=== PATIENT | male | born 1945 | race Caucasian/White ===

== ENCOUNTER 2021-05-26 19:42 | Outpatient (CLI) | payer MEDICARE, OTHER | END 2021-05-26 19:43 | disposition critical access hospital (66) | LOC: EMS 19:42 | DX: R19.7 Diarrhea, unspecified (principal); R53.1 Weakness | CPT/HCPCS: A0425; A0429 ==

== ENCOUNTER 2021-05-26 20:00 | Inpatient (IN) | payer MEDICARE, OTHER ==
[2021-05-26 20:31] LABS: HGB - HEMOGLOBIN 11.9 g/dL (14.0-18.0); MEAN PLATELET VOLUME 10.8 fL (7.4-11.4); RED CELL DISTRIBUTION WIDTH 13.7 % (12.0-15.0)
[2021-05-26 20:36] LABS: BASOPHILS % (AUTO) 0.3 %; EOSINOPHILS % (AUTO) 0.1 %; LYMPHOCYTES # (AUTO) 0.8 10^3/uL (1.5-3.5); LYMPHOCYTES % (AUTO) 7.8 %; MEAN CORPUSCULAR HEMOGLOBIN 32.2 pg (27.0-31.0); MEAN CORPUSCULAR HGB CONC 32.2 g/dL (32.0-36.0); MEAN CORPUSCULAR VOLUME 100.3 fL (80.0-94.0); MONOCYTES # (AUTO) 0.8 10^3/uL (0.0-1.0); MONOCYTES % (AUTO) 7.5 %; NEUTROPHILS # (AUTO) 8.4 10^3/uL (1.5-6.6); NEUTROPHILS % (AUTO) 83.8 %; PLT - PLATELET COUNT 129 10^3/uL (130-450); RED BLOOD COUNT 3.69 10^6/uL (4.70-6.10)
[2021-05-26 20:47] LABS: ALBUMIN 3.1 g/dL (3.2-5.5); ALBUMIN/GLOBULIN RATIO 0.8 (1.0-2.2); CALCIUM 8.3 mg/dL (8.5-10.3); CREATININE 2.8 mg/dL (0.6-1.2); POTASSIUM 3.8 mmol/L (3.5-5.0); TOTAL PROTEIN 6.9 g/dL (6.7-8.2)
--- NOTE | 2021-05-26 20:57 | ED Physician Documentation ---
PD HPI NVD - Stated complaint Stated Complaint: WEAKNESS - Chief complaint Chief Complaint: Abd Pain - History obtained from History obtained from: Patient - History of Present Illness Timing - onset: How many days ago (4) Timing - duration: Days (4) Timing - details: Abrupt onset, Still present (he states the diarrhea and nausea were most consistent the first 2 1/2 days but decreased about 1 1/2 days ago. Still has some diarrhea every few hours. No noted blood in stool. Feeling of general weakness has increased though, and unable to get up from toilet once sat down this evening. called EMS.) Associated symptoms: Dizzy (lightheaded and general weakness.), Loss of appetite. No: Fever, Abdominal pain (intermittent mild cramping. No consistent pain.), Melena, Hematochezia, Dysuria Contributing factors: Bad food (he says onset of symptoms few hours after eating some leftover food, but it did not taste bad per se. No URI symptoms.). No: Sick contact Improved by: BM (minimal cramps go after stool movement. No consistent pain.) Worsened by: Eating (feeling of nausea worse with PO intake, though he was able to do some sips of gatorade and few crackers over the past 4 days, but that is all the intake. Did not take meds past 2 days due to nausea.) Similar symptoms before: Has not had sx before Recently seen: Not recently seen Review of Systems Constitutional: reports: Fatigue. denies: Fever, Chills, Myalgias Nose: denies: Rhinorrhea / runny nose, Congestion Throat: denies: Sore throat Cardiac: reports: Pedal edema (mild chronic). denies: Chest pain / pressure, Calf pain Respiratory: denies: Dyspnea, Cough GI: reports: Nausea, Diarrhea. denies: Abdominal Pain (none consistent), Abdominal Swelling, Vomiting, Constipation, Bloody / black stool : denies: Dysuria, Frequency Neurologic: reports: Generalized weakness (unable to stand up from sitting (on toilet) this evening, was barely able to walk around house the past 1-2 days.). denies: Focal weakness, Numbness, Near syncope, Altered mental status, Headache Endocrine: reports: Easy bruising / bleeding. denies: Polydypsia, Polyuria Immunocompromised: denies: Immunocompromised PD PAST MEDICAL HISTORY - Past Medical History Past Medical History: Yes Cardiovascular: Hypertension, High cholesterol, [place] Respiratory: Shortness of breath Neuro: None Endocrine/Autoimmune: None GI: GERD : Kidney stones HEENT: Chronic vision loss, Chronic sinusitis Psych: None Musculoskeletal: None Derm: None Other Past Medical History: USES A CANE W/ MOBILITY... - Past Surgical History Past Surgical History: Yes Ortho: Other Cardiovascular: Cardiac catheterization, Other HEENT: Cataracts, Tonsil/Adenoidectomy - Present Medications Home Medications: Ambulatory Orders Medication Instructions Recorded Confirmed Alfuzosin HCl [Alfuzosin HCl ER] 10 mg PO DAILY 04/15/15 05/26/21 Cholecalciferol (Vitamin D3) 2 cap PO DAILY 04/15/15 05/26/21 [Vitamin D3] Isosorbide Mononitrate [Isosorbide 60 mg PO DAILY 04/15/15 05/26/21 Mononitrate ER] Metoprolol Succinate [Toprol Xl] 50 mg PO BID 04/15/15 05/26/21 Omeprazole 2 tab PO DAILY 04/15/15 05/26/21 allopurinoL [Allopurinol] 100 mg PO BID 04/15/15 05/26/21 Atorvastatin Calcium 40 mg PO DAILY 05/26/21 05/26/21 - Allergies Allergies/Adverse Reactions: Allergies Allergy/AdvReac Type Severity Reaction Status Date / Time No Known Drug Allergies Allergy Verified 05/26/21 20:07 - Social History Does the pt smoke?: No Smoking Status: Never smoker Does the pt drink ETOH?: No Does the pt have substance abuse?: No - Immunizations Immunizations are current?: Yes - POLST Patient has POLST: No PD ED PE NORMAL - Vitals Vital signs reviewed: Yes (tachycardic 138. BP okay. ) - General General: Alert and oriented X 3, Well developed/nourished - HEENT HEENT: PERRL, Pharynx benign. No: Moist mucous membranes - Neck Neck: Supple, no meningeal sign, No adenopathy - Cardiac Cardiac: No: RRR (regular but tachycardic. ) - Respiratory Respiratory: No respiratory distress, Clear bilaterally - Abdomen Abdomen: Soft, Non tender, Non distended, Other (he is not tender in abd to percussion nor palpation. ). No: Normal bowel sounds (increased diffusely) - Male Male : Deferred - Rectal Rectal: Deferred - Back Back: No CVA TTP - Derm Derm: Warm and dry. No: Normal color (somewhat pale) - Extremities Extremities: No tenderness to palpate, Normal ROM s pain, No calf tenderness / cord, Other (1+ minimal edema in both legs. ) - Neuro Neuro: Alert and oriented X 3, No motor deficit, Normal speech Eye Opening: Spontaneous Motor: Obeys Commands Verbal: Oriented GCS Score: 15 Results - Vitals Vitals: Vital Signs - 24 hr 05/26/21 05/26/21 05/26/21 20:04 21:24 22:07 Temperature 36.4 C L Heart Rate 138 H 117 H Respiratory 20 16 19 Rate Blood Pressure 127/82 H 155/72 H O2 Saturation 100 97 05/26/21 05/26/21 05/26/21 22:38 22:45 22:59 Temperature Heart Rate 117 H 94 98 Respiratory 18 18 18 Rate Blood Pressure 158/78 H 138/75 H O2 Saturation 95 96 95 Oxygen O2 Source Room air - EKG (time done) 21:54 Rate: Rate (enter#) (116) Rhythm: Sinus tachycardia [place]: Normal Intervals: RBBB Ischemia: Non specific changes. No: ST elevation c/w ischemia - Labs Labs: Laboratory Tests 05/26/21 05/26/21 05/26/21 20:22 20:22 20:22 WBC 10.0 RBC 3.69 L Hgb 11.9 L Hct 37.0 L MCV 100.3 H MCH 32.2 H MCHC 32.2 RDW 13.7 Plt Count 129 L MPV 10.8 Neut # (Auto) 8.4 H Lymph # (Auto) 0.8 L Rogers # (Auto) 0.8 Eos # (Auto) 0.0 Baso # (Auto) 0.0 Absolute Nucleated RBC 0.00 Nucleated RBC % 0.0 Sodium 137 Potassium 3.8 Chloride 99 L Carbon Dioxide 27 Anion Gap 11.0 BUN 38 H Creatinine 2.8 H Estimated GFR (MDRD) 22 L Glucose 103 H Calcium 8.3 L Magnesium 1.6 L Total Bilirubin 3.0 H AST 50 H ALT 29 Alkaline Phosphatase 99 Troponin I High Sens B-Natriuretic Peptide Total Protein 6.9 Albumin 3.1 L Globulin 3.8 Albumin/Globulin Ratio 0.8 L Urine Color Urine Clarity Urine pH Ur Specific [place] Urine Protein Urine Glucose (UA) Urine Ketones Urine Occult Blood Urine Nitrite Urine Bilirubin Urine Urobilinogen Ur Leukocyte Esterase Urine RBC Urine WBC Ur Squamous Epith Cells Urine Bacteria Urine Casts Ur Microscopic Review Urine Culture Comments Nasal Adenovirus (PCR) Nasal B. parapertussis DNA (PCR) Nasal Coronavir 229E PCR Nasal Coronavir HKU1 PCR Nasal Coronavir NL63 PCR Nasal Coronavir OC43 PCR Nasal Enterovir/Rhinovir PCR Nasal Influenza B PCR Nasal Influenza A PCR Nasal Parainfluen 1 PCR Nasal Parainfluen 2 PCR Nasal Parainfluen 3 PCR Nasal Parainfluen 4 PCR Nasal RSV (PCR) Nasal B.pertussis DNA PCR Nasal C.pneumoniae (PCR) Adam Human Metapneumo PCR Nasal M.pneumoniae (PCR) Nasal SARS-CoV-2 (PCR) 05/26/21 05/26/21 05/26/21 20:22 20:22 21:20 WBC RBC Hgb Hct MCV MCH MCHC RDW Plt Count MPV Neut # (Auto) Lymph # (Auto) Rogers # (Auto) Eos # (Auto) Baso # (Auto) Absolute Nucleated RBC Nucleated RBC % Sodium Potassium Chloride Carbon Dioxide Anion Gap BUN Creatinine Estimated GFR (MDRD) Glucose Calcium Magnesium Total Bilirubin AST ALT Alkaline Phosphatase Troponin I High Sens 47.1 H* B-Natriuretic Peptide 190 H Total Protein Albumin Globulin Albumin/Globulin Ratio Urine Color Urine Clarity Urine pH Ur Specific [place] Urine Protein Urine Glucose (UA) Urine Ketones Urine Occult Blood Urine Nitrite Urine Bilirubin Urine Urobilinogen Ur Leukocyte Esterase Urine RBC Urine WBC Ur Squamous Epith Cells Urine Bacteria Urine Casts Ur Microscopic Review Urine Culture Comments Nasal Adenovirus (PCR) NOT DETECTED Nasal B. parapertussis DNA (PCR) NOT DETECTED Nasal Coronavir 229E PCR NOT DETECTED Nasal Coronavir HKU1 PCR NOT DETECTED Nasal Coronavir NL63 PCR NOT DETECTED Nasal Coronavir OC43 PCR NOT DETECTED Nasal Enterovir/Rhinovir PCR NOT DETECTED Nasal Influenza B PCR NOT DETECTED Nasal Influenza A PCR NOT DETECTED Nasal Parainfluen 1 PCR NOT DETECTED Nasal Parainfluen 2 PCR NOT DETECTED Nasal Parainfluen 3 PCR NOT DETECTED Nasal Parainfluen 4 PCR NOT DETECTED Nasal RSV (PCR) NOT DETECTED Nasal B.pertussis DNA PCR NOT DETECTED Nasal C.pneumoniae (PCR) NOT DETECTED Adam Human Metapneumo PCR NOT DETECTED Nasal M.pneumoniae (PCR) NOT DETECTED Nasal SARS-CoV-2 (PCR) NOT DETECTED 05/26/21 22:02 WBC RBC Hgb Hct MCV MCH MCHC RDW Plt Count MPV Neut # (Auto) Lymph # (Auto) Rogers # (Auto) Eos # (Auto) Baso # (Auto) Absolute Nucleated RBC Nucleated RBC % Sodium Potassium Chloride Carbon Dioxide Anion Gap BUN Creatinine Estimated GFR (MDRD) Glucose Calcium Magnesium Total Bilirubin AST ALT Alkaline Phosphatase Troponin I High Sens B-Natriuretic Peptide Total Protein Albumin Globulin Albumin/Globulin Ratio Urine Color DARK YELLOW Urine Clarity CLEAR Urine pH 5.5 Ur Specific [place] 1.025 Urine Protein 100 H Urine Glucose (UA) NEGATIVE Urine Ketones NEGATIVE Urine Occult Blood MODERATE H Urine Nitrite NEGATIVE Urine Bilirubin NEGATIVE Urine Urobilinogen 1 (NORMAL) Ur Leukocyte Esterase NEGATIVE Urine RBC 6-10 H Urine WBC 4-5 Ur Squamous Epith Cells FEW Squamous Urine Bacteria Few Urine Casts 11-25Course Granular Ur Microscopic Review INDICATED Urine Culture Comments NOT INDICATED Nasal Adenovirus (PCR) Nasal B. parapertussis DNA (PCR) Nasal Coronavir 229E PCR Nasal Coronavir HKU1 PCR Nasal Coronavir NL63 PCR Nasal Coronavir OC43 PCR Nasal Enterovir/Rhinovir PCR Nasal Influenza B PCR Nasal Influenza A PCR Nasal Parainfluen 1 PCR Nasal Parainfluen 2 PCR Nasal Parainfluen 3 PCR Nasal Parainfluen 4 PCR Nasal RSV (PCR) Nasal B.pertussis DNA PCR Nasal C.pneumoniae (PCR) Adam Human Metapneumo PCR Nasal M.pneumoniae (PCR) Nasal SARS-CoV-2 (PCR) - Rads (name of study) chest xray Radiology: Prelim report reviewed (no acute process), See rad report PD MEDICAL DECISION MAKING - ED course Complexity details: reviewed old records (no prior labs nor ECG available in our system. Trying to get records from [place]. ), reviewed results (elevated creatinine at 2.8 with baseline unknown. [facility] and still pending after couple of hours. ), re-evaluated patient (attempted ambulation in ER after fluids and meds showed still general weakness with unable to get himself up to standing. ), considered differential (viral GE versus food related. No abd pain consistently nor any tenderness here, so does not seem like ischemic, diverticular, appendix, obstructive.), d/w patient, d/w strategy execution consultant (My concern is the general weakness still and unable to really walk in ER. The elevated creatinine of 2.8 is unknown how acutely elevated at this point. History of [place]/CABG, so do not want to give large volume fluid. Feel that OBS may be appropirate. ) Departure - Departure Clinical Impression: Generalized weakness, Dehydration, Elevated creatine kinase Diarrhea Qualifiers: Diarrhea type: unspecified type Qualified Code(s): R19.7 - Diarrhea, unspecified Condition: Stable Record reviewed to determine appropriate education?: Yes
[2021-05-26] MEDS ORDERED: SODIUM CHLORIDE 0.9% 1,000 ML IV STA (21:12)
--- NOTE | 2021-05-26 21:40 | XRAY Report ---
PROCEDURE: Chest 1 View X-Ray INDICATIONS: chest pain TECHNIQUE: One view of the chest was acquired. COMPARISON: None FINDINGS: Surgical changes and devices: None. Lungs and pleura: No pleural effusions or pneumothorax. Lungs are clear. Mediastinum: Mediastinal contours appear normal. Heart size is normal. Bones and chest wall: No suspicious bony lesions. Overlying soft tissues appear unremarkable. IMPRESSION: No acute process. Reviewed by: Hector Eden MD on 05/26/2021 9:38 PM PDT Approved by: Hector Eden MD on 05/26/2021 9:38 PM PDT Station ID: [id number]
[2021-05-26 22:11] LABS: GLUCOSE, URINE (UA) NEGATIVE (NEGATIVE); KETONES,URINE (UA) NEGATIVE (NEGATIVE); LEUKOCYTE ESTERASE, URINE NEGATIVE (NEGATIVE); NITRITE,URINE NEGATIVE (NEGATIVE); OCCULT BLOOD,URINE MODERATE (NEGATIVE); PH,URINE 5.5 PH (5.0-7.5); PROTEIN,URINE 100 mg/dL (NEGATIVE); UROBILINOGEN,URINE 1 (NORMAL) E.U./dL (NORMAL)
[2021-05-26 22:15] LABS: BILIRUBIN,URINE NEGATIVE (NEGATIVE); CLARITY,URINE CLEAR (CLEAR); ICTOTEST,URINE NEGATIVE
[2021-05-26] MEDS ORDERED: MAGNESIUM SULFATE 2 GRAM 2 GM/50 ML BAG IV ONE (22:22)
[2021-05-26] MEDS ORDERED: METOPROLOL 5 MG/5 ML VIAL IVP STA (22:22)
[2021-05-26 22:23] LABS: BACTERIA,URINE Few /HPF (None Seen); CASTS, URINE 11-25Course Granular /LPF; SQUAMOUS EPITHELIAL CELL,UR FEW Squamous (<= Few)
[2021-05-26 22:26] LABS: CORONAVIRUS 229E-RESP PCR NOT DETECTED; CORONAVIRUS HKU1-RESP PCR NOT DETECTED; CORONAVIRUS NL63-RESP PCR NOT DETECTED; CORONAVIRUS OC43-RESP PCR NOT DETECTED; HUMAN METAPNEUMOVIRUS NOT DETECTED; RHINOVIRUS/ENTEROVIRUS NOT DETECTED; SARS-CoV-2 -RESP PCR PANEL NOT DETECTED
[2021-05-26 22:27] LABS: B. PARAPERTUSSIS- RESP PCR PAN NOT DETECTED; B. PERTUSSIS- RESP PCR PANEL NOT DETECTED; C. PNEUMONIAE- RESP PCR PANEL NOT DETECTED; INFLUENZA A- RESP PCR PANEL NOT DETECTED; INFLUENZA B - RESP PCR PANEL NOT DETECTED; M. PNEUMONIAE- RESP PCR PANEL NOT DETECTED; PARAINFLUENZA VIRUS 1 NOT DETECTED; PARAINFLUENZA VIRUS 2 NOT DETECTED; PARAINFLUENZA VIRUS 3 NOT DETECTED; PARAINFLUENZA VIRUS 4 NOT DETECTED; RSV- RESP PCR PANEL NOT DETECTED
[2021-05-26] MEDS ORDERED: SODIUM CHLORIDE FLUSH 0.9% 10 ML SYRINGE IVP PRN (23:17)
[2021-05-26] MEDS ORDERED: ONDANSETRON 4 MG/2 ML VIAL IVP PRN (23:17)
--- NOTE | 2021-05-26 23:24 | HISTORY & PHYSICAL EXAMINATION ---
Chief Complaint - Chief Complaint Chief Complaint: generalized weakness History of Present Illness - Admitted From Admitted From:: [facility] ED - History Obtained From Records Reviewed: yes History obtained from: patient - History of Present Illness HPI Comment/Other: Patient is a 75-year-old obese male with medical history significant for cor onary artery disease status post stent placement 2011, hyperlipidemia, hypertension, GERD, gout who presented to the ED with complaint of generalized weakness and diarrhea. He ate some Romansh bread on Monday which is about 4 days ago. He believes the bread was not properly cooked. He started having diarrhea about every hour on Monday night. This lasted till Monday morning when it stopped. He describes his stool as soft currently. However for the past 2 to 3 days he has been significantly weak and unable to get out of bed. He attempted to do so and fell twice. He did not hit his head or pass out with the falls. However as a result of the falls he decided to come to the emergency department for evaluation. He was noted to have a creatinine of 2.8, magnesium 1.6. He was also very tachycardic with heart rate in the 130s. As a result of his weakness and diarrhea he has not taken his metoprolol for several days now. He denied chest pain, dyspnea, abdominal pain, nausea, vomiting or fever. He reported chills. He was presented for admission for further treatment to include continued IV hydration. History - Past Medical History Cardiovascular: reports: Hypertension, High cholesterol, Coronary artery disease, [place] Respiratory: reports: Emphysema, Shortness of breath Neuro: reports: None Endocrine/Autoimmune: reports: None GI: reports: GERD : reports: Benign prostate hypertrophy, Kidney stones HEENT: reports: Chronic vision loss, Chronic sinusitis Psych: reports: None Musculoskeletal: reports: None, Gout Derm: reports: None MRSA Hx?: No Other Past Medical History: USES A CANE W/ MOBILITY... - Past Surgical History Ortho: reports: Other Cardiovascular: reports: Coronary stent, Cardiac catheterization, Other HEENT: reports: Cataracts, Tonsil/Adenoidectomy - Family & Social History Family History Comment/Other: His brother from stomach cancer in his 60s Social History Notes: He lives alone at home. He is independent of activities of daily living. He quit smoking in 1988. He used to smoke 2 packs a day for 40 years. He denies alcohol or recreational substance use. - POLST Patient has POLST: No POLST Status: Full Code Meds/Allgy - Home Medications Home Medications: Ambulatory Orders Medication Instructions Recorded Confirmed Alfuzosin HCl [Alfuzosin HCl ER] 10 mg PO DAILY 04/15/15 05/26/21 Cholecalciferol (Vitamin D3) 2 cap PO DAILY 04/15/15 05/26/21 [Vitamin D3] Isosorbide Mononitrate [Isosorbide 60 mg PO DAILY 04/15/15 05/26/21 Mononitrate ER] Metoprolol Succinate [Toprol Xl] 50 mg PO BID 04/15/15 05/26/21 Omeprazole 2 tab PO DAILY 04/15/15 05/26/21 allopurinoL [Allopurinol] 100 mg PO BID 04/15/15 05/26/21 Atorvastatin Calcium 40 mg PO DAILY 05/26/21 05/26/21 - Allergies Allergies/Adverse Reactions: Allergies Allergy/AdvReac Type Severity Reaction Status Date / Time No Known Drug Allergies Allergy Verified 05/26/21 20:07 Review of Systems - Constitutional Constitutional: reports: Fatigue, Chills, Weakness. denies: Fever - Eyes Eyes: denies: Pain, Vision loss - Ears, Nose & Throat Ears, Nose & Throat: denies: Ear pain, Sore throat, Hoarseness - Cardiovascular Cariovascular: reports: Palpitations. denies: Chest pain, Edema, Lighthea dedness, Syncope - Respiratory Respiratory: reports: SOB at rest (emphysema). denies: Cough, Sputum production, Wheezing, SOB with exertion - Gastrointestinal Gastrointestinal: reports: Diarrhea, Reflux/heartburn. denies: Abdominal pain, Abdominal distention, Nausea, Vomiting - Genitourinary Genitourinary: denies: Dysuria, Frequency, Urgency, Hematuria - Musculoskeletal Musculoskeletal: denies: Muscle pain, Back pain - Integumentary Integumentary: denies: Rash, Pruritis, Lesions - Neurological Neurological: reports: General weakness. denies: Focal weakness, Headache, Dizziness, Numbness - Psychiatric Psychiatric: denies: Depression, Anxiety - Endocrine Endocrine: denies: Polyuria, Polydypsia - Hematologic/Lymphatic Hematologic/Lymphatic: denies: Anemia, Bruising, Petechiae Prior Level of Functionality: Patient is normally independent of activities of daily living. Exam - Vital Signs Vital Signs: Vital Signs x48h Temp Pulse Resp BP Pulse Ox 05/26/21 23:19 98 20 128/74 97 05/26/21 22:59 98 18 95 05/26/21 22:45 94 18 138/75 H 96 05/26/21 22:38 117 H 18 158/78 H 95 05/26/21 22:07 117 H 19 155/72 H 97 05/26/21 21:24 16 05/26/21 20:04 36.4 C L 138 H 20 127/82 H 100 - Physical Exam General Appearance: positive: No acute distress, Alert Eyes Bilateral: positive: PERRL, EOMI ENT: positive: Dry mucous membranes Neck: positive: No JVD, Trachea midline Respiratory: positive: Chest non-tender, No respiratory distress, Breath sounds nml. negative: Wheezes, Rales, Rhonchi Cardiovascular: positive: Regular rate & rhythm, No murmur Abdomen: positive: Non-tender, No organomegaly, Nml bowel sounds, No distention. negative: Guarding, Rebound Back: positive: Nml inspection Skin: positive: Color nml, No rash, Warm, Dry Extremities: positive: Non-tender, Full ROM, Nml appearance, No pedal edema Neurologic/Psychiatric: positive: Oriented x3, Mood/affect nml Conclusion/Plan - Problem List (1) Acute kidney injury Conclusion/Plan: Likely secondary to dehydration from diarrhea. Diarrhea was likely secondary to gastroenteritis from inadequately prepared food. Patient's creatinine is 2.8. Patient receiving IV hydration with normal saline at 100 mL/h. We will recheck a.m. labs. Anticipating improvement. (2) Dehydration Conclusion/Plan: To gastroenteritis due to poorly prepared food. Patient's diarrhea has stopped. Patient is currently receiving IV hydration with normal saline. Anticipate improvement in symptoms. (3) Elevated troponin Conclusion/Plan: Prateek demand ischemia from tachycardia related to dehydration. Patient's heart rate was 130s at time of presentation in the ED Heart rate improved from 130 down to 98 with IV hydration. Also patient has not been taking his metoprolol for several days due to diarrhea. Troponin was 47. Will trend x2 more. (4) Coronary artery disease Conclusion/Plan: Patient had a stent placed in 2011. Will resume patient's metoprolol 50 mg p.o. twice daily, isosorbide mononitrate 60 mg extended release daily, atorvastatin 40 mg p.o. daily. (5) Hypertension Conclusion/Plan: Metoprolol succinate 50 mg p.o. twice daily resume. Also on isosorbide mononitrate 60 mg p.o. daily (6) Hyperlipidemia Conclusion/Plan: On atorvastatin 40 mg p.o. daily. (7) Generalized weakness Conclusion/Plan: Likely due to dehydration due to diarrhea. Anticipating improvement with IV hydration. If no significant improvement will have patient evaluated by physical therapy. (8) Hx of gout Conclusion/Plan: On allopurinol 100 mg p.o. twice daily (9) BPH (benign prostatic hyperplasia) Conclusion/Plan: On alfuzosin 10 mg p.o. daily - Lab Results Fish Bones: 05/26/21 20:22 05/26/21 20:22 Core Measures - Anticipated LOS I expect patient to be DC'd or transferred within 96 hours.: Yes - DVT/VTE - Prophylaxis VTE/DVT Device ordered at admit?: Yes VTE/DVT Prophylaxis med ordered at admit?: Yes
[2021-05-26] MEDS ORDERED: SODIUM CHLORIDE 0.9% 1,000 ML IV SCH (23:45)
[2021-05-27] MEDS: SODIUM CHLORIDE FLUSH 0.9% 10 ML SYRINGE IVP SCH ×3 (00:48→17:24)
[2021-05-27 06:59] LABS: CREATININE 2.7 mg/dL (0.6-1.2); POTASSIUM 3.4 mmol/L (3.5-5.0)
[2021-05-27 07:11] LABS: BASOPHILS % (AUTO) 0.2 %; EOSINOPHILS % (AUTO) 0.2 %; HCT - HEMATOCRIT 33.2 % (42.0-52.0); HGB - HEMOGLOBIN 10.4 g/dL (14.0-18.0); LYMPHOCYTES # (AUTO) 0.8 10^3/uL (1.5-3.5); LYMPHOCYTES % (AUTO) 9.4 %; MEAN CORPUSCULAR HEMOGLOBIN 32.1 pg (27.0-31.0); MEAN CORPUSCULAR HGB CONC 31.3 g/dL (32.0-36.0); MEAN CORPUSCULAR VOLUME 102.5 fL (80.0-94.0); MONOCYTES # (AUTO) 0.7 10^3/uL (0.0-1.0); MONOCYTES % (AUTO) 8.1 %; NEUTROPHILS # (AUTO) 6.8 10^3/uL (1.5-6.6); NEUTROPHILS % (AUTO) 81.6 %; NRBC ABSOLUTE COUNT (AUTO) 0.02 x10^3/uL; NUCLEATED RED BLOOD CELLS AUTO 0.2 /100WBC; PLT - PLATELET COUNT 124 10^3/uL (130-450); RED BLOOD COUNT 3.24 10^6/uL (4.70-6.10); RED CELL DISTRIBUTION WIDTH 13.8 % (12.0-15.0); WHITE BLOOD COUNT 8.4 x10^3/uL (4.8-10.8)
[2021-05-27] MEDS ORDERED: POTASSIUM CHLORIDE 20 MEQ TABLET PO ONE (07:45)
[2021-05-27] MEDS ORDERED: SODIUM CHLORIDE 0.9% 1,000 ML IV SCH (07:48)
[2021-05-27 08:24] LABS: ALBUMIN 2.7 g/dL (3.2-5.5); ALBUMIN/GLOBULIN RATIO 0.9 (1.0-2.2); ALKALINE PHOSPHATASE 88 IU/L (42-121); ALT ALANINE AMINOTRANSFERASE 33 IU/L (10-60); AST ASPARTATE AMINOTRANSFERASE 43 IU/L (10-42); BILIRUBIN,TOTAL 2.4 mg/dL (0.2-1.0); BUN - BLOOD UREA NITROGEN 39 mg/dL (6-20); CALCIUM 7.9 mg/dL (8.5-10.3); CARBON DIOXIDE - CO2 26 mmol/L (21-32); CHLORIDE 102 mmol/L (101-111); CREATININE 2.5 mg/dL (0.6-1.2); ETOH - ETHANOL < 5.0 mg/dL; GFR - MDRD 25 (>89); GLUCOSE 89 mg/dL (70-100); POTASSIUM 3.4 mmol/L (3.5-5.0); SODIUM 140 mmol/L (135-145); TOTAL PROTEIN 5.8 g/dL (6.7-8.2)
[2021-05-27] MEDS ORDERED: PIPERACILLIN/TAZOBACTAM 3.375 GM in SODIUM CHLORIDE 0.9% MINIBAG 100 ML IV ONE (08:30)
[2021-05-27] MEDS ORDERED: METOPROLOL SUCCINATE 50 MG TABLET PO SCH ×2 (09:00→21:00)
[2021-05-27] MEDS: allopurinoL 100 MG TABLET PO SCH (09:29)
[2021-05-27] MEDS: PANTOPRAZOLE 40 MG TABLET PO SCH (09:29)
[2021-05-27] MEDS: CHOLECALCIFEROL 25 MCG TABLET PO SCH (09:29)
[2021-05-27] MEDS: SACCHAROMYCES BOULARDII 250 MG CAPSULE PO SCH ×2 (09:30→17:22)
[2021-05-27] MEDS: ATORVASTATIN 40 MG TABLET PO SCH (09:30)
[2021-05-27] MEDS: TAMSULOSIN 0.4 MG CAPSULE PO SCH (09:30)
[2021-05-27] MEDS: ISOSORBIDE MONONITRATE ER 30 MG TABLET PO SCH (09:30)
[2021-05-27] MEDS ORDERED: METOPROLOL 5 MG/5 ML VIAL IVP PRN (10:49)
[2021-05-27] MEDS ORDERED: METOPROLOL 5 MG/5 ML VIAL IVP ONE (11:00)
--- NOTE | 2021-05-27 11:31 | XRAY Report ---
PROCEDURE: Chest 1 View X-Ray INDICATIONS: SOB TECHNIQUE: One view of the chest was acquired. COMPARISON: Chest radiograph 05/26/2021 FINDINGS: Surgical changes and devices: None. Lungs and pleura: Low lung volumes are seen bilaterally, which accentuate pulmonary markings. No acut e consolidation is seen. No pleural effusion or pneumothorax. Mediastinum: Mediastinal contours appear normal. Heart size is normal. Bones and chest wall: No suspicious bony lesions. Overlying soft tissues appear unremarkable. IMPRESSION: Bilateral low lung volumes. No acute cardiopulmonary abnormality identified. Reviewed by: Alfredo Pierson MD on 05/27/2021 11:30 AM PDT Approved by: Alfredo Pierson MD on 05/27/2021 11:30 AM PDT Station ID: [id number]
--- NOTE | 2021-05-27 11:55 | PROVIDER PROGRESS NOTE ---
Assessment/Plan - Problem List (1) Fever Assessment/Plan: Patient has low degree fever 38. CXR and UA did not indicate infection, lactic acid is at normal arrange. Patient report to have diarrhea a few days in the home. pt denies abdominal pain or tenderness. suspect pt may have colitis. We will have blood culture for patient, started with Zosyn and probiotics. (2) Acute kidney injury Conclusion/Plan: improved. pt has hx of stage IV CKD. today creatinine is 2.5 decreased from yesterday 2.8. pt has baseline of creatinine was 2.2. continue IVF but precaution of fluid overloaded. pt is at high risk to have fluid overloaded. reduced IVF to 83.3cc/h, continue lab monitor (3) Dehydration Conclusion/Plan: it was likely caused by his diarrhea at home. pt has no diarrhea now. continue appropriate IVF and vital monitor (4) Elevated troponin Conclusion/Plan: pt denies chest pain, he is Hemodynamically stable. EKG did not show ischemic change. repeated troponin at flat. 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 continue home lipitor, metoprolol, imdur (5) Coronary artery disease Conclusion/Plan: stable, Patient had stent placed in 2011. continue home Metoprolol, Imdur, lipitor continue tele and vital monitor (6) Hypertension Conclusion/Plan: stable, continue home Metoprolol succinate and isosorbide mononitrate (6) Hyperlipidemia Conclusion/Plan: On atorvastatin 40 mg p.o. daily. (7) Generalized weakness Conclusion/Plan: it is Likely due to diarrhea, dehydration and infection. consult with PT/OT (8) Hx of gout Conclusion/Plan: On allopurinol 100 mg p.o. twice daily (9) BPH (benign prostatic hyperplasia) Conclusion/Plan: On alfuzosin 10 mg p.o. daily (10)SVT tele reveal pt has 143 SVT. pt Denies chest pain or palpitation. Patient was given intravenous metoprolol in ER to control. we will continue metoprolol as needed for SVT, and slight increase PO metoprolol, continue tele and vital monitor (11)wheezing pt Patient reported he has chronically wheezy for his whole life Because of his allergy. Chest x-ray does not show acute process. but pt has mild Tachypnea, 92% oxygen saturation on room air. We will add albuterol PRN, Pulmicort - Current Meds Current Meds: Current Medications Generic Name Dose Route Start Last Admin Trade Name Pia PRN Reason Stop Dose Admin Allopurinol 100 mg 05/27/21 09:00 05/27/21 09:29 Allopurinol 100 Mg Tablet PO 100 mg DAILY INEZ Administration Atorvastatin Calcium 40 mg 05/27/21 09:00 05/27/21 09:30 Atorvastatin 40 Mg Tablet PO 40 mg DAILY INEZ Administration Cholecalciferol 50 mcg 05/27/21 09:00 05/27/21 09:29 Cholecalciferol 25 Mcg Tablet PO 50 mcg DAILY INEZ Administration Sodium Chloride 1,000 mls @ 100 mls/hr 05/27/21 07:48 05/27/21 10:33 Normal Saline 0.9% IV 05/28/21 03:47 100 mls/hr .Q10H INEZ Administration Isosorbide Mononitrate 60 mg 05/27/21 09:00 05/27/21 09:30 Isosorbide Mononitrate Er 30 Mg Tablet PO 60 mg DAILY INEZ Administration Metoprolol Succinate 50 mg 05/27/21 09:00 05/27/21 09:30 Metoprolol Succinate 50 Mg Tablet PO 50 mg BID INEZ Administration Pantoprazole Sodium 40 mg 05/27/21 09:00 05/27/21 09:29 Pantoprazole 40 Mg Tablet PO 40 mg DAILY INEZ Administration Saccharomyces Boulardii 250 mg 05/27/21 08:00 05/27/21 09:30 Saccharomyces Boulardii 250 Mg Capsule PO 250 mg BIDWM INEZ Administration Sodium Chloride 10 ml 05/27/21 01:00 05/27/21 09:30 Sodium Chloride Flush 0.9% 10 Ml Syringe IVP 10 ml 0100,0900,1700 INEZ Administration Tamsulosin HCl 0.4 mg 05/27/21 09:00 05/27/21 09:30 Tamsulosin 0.4 Mg Capsule PO 0.4 mg DAILY INEZ Administration - Lab Result Fish Bone Diagrams: 05/27/21 06:44 05/27/21 06:44 - Additional Planning My Orders: My Active Orders 05/27/21 CUL, STOOL [CULTURE, STOOL] [RM] Urgent Evaluate and Treat OT [OT] Routine Evaluate and Treat PT [PT] Routine 05/27/21 Breakfast Soft (Low Fiber) Diet [DIET] 05/27/21 07:48 Sodium Chloride 0.9% [Normal Saline 0.9%] 1,000 ml IV 100 mls/hr 05/27/21 07:49 Echo Transthoracic Complete [ECHO] Routine 05/27/21 08:00 Saccharomyces Boulardii [Florastor] 250 mg PO BIDWM 05/27/21 08:20 Blood Culture [CULTURE, BLOOD #2] [RM] Urgent 05/27/21 08:22 Blood Culture [CULTURE, BLOOD #1] [RM] Urgent 05/27/21 08:55 Out of bed 3+ hours today [RC] TID 05/27/21 10:49 Metoprolol Inj [Lopressor Inj] 5 mg IVP Q6H PRN 05/27/21 12:00 Piperacillin/Tazobactam [Zosyn] 3.375 gm Sodium Chloride 0.9% Minibag [Normal Saline 0.9% Minibag] 100 ml IV Q8H 05/28/21 05:00 CMP [COMPREHENSIVE METABOLIC PANEL] [CHEM] DAILYLAB 05/29/21 05:00 CMP [COMPREHENSIVE METABOLIC PANEL] [CHEM] DAILYLAB 05/30/21 05:00 CMP [COMPREHENSIVE METABOLIC PANEL] [CHEM] DAILYLAB 05/31/21 05:00 CMP [COMPREHENSIVE METABOLIC PANEL] [CHEM] DAILYLAB 06/01/21 05:00 CMP [COMPREHENSIVE METABOLIC PANEL] [CHEM] DAILYLAB Subjective - Subjective Patient Reports: Resting Comfortably Objective Vital Signs: Vital Signs - 24 hr 05/26/21 05/26/21 05/26/21 20:04 21:24 22:07 Temperature 36.4 C L Heart Rate 138 H 117 H Heart Rate [ Brachial] Respiratory 20 16 19 Rate Blood Pressure 127/82 H 155/72 H Blood Pressure [Left Brachial artery] O2 Saturation 100 97 05/26/21 05/26/21 05/26/21 22:38 22:45 22:59 Temperature Heart Rate 117 H 94 98 Heart Rate [ Brachial] Respiratory 18 18 18 Rate Blood Pressure 158/78 H 138/75 H Blood Pressure [Left Brachial artery] O2 Saturation 95 96 95 05/26/21 05/27/21 05/27/21 23:19 00:30 05:27 Temperature 37.4 C 37.4 C Heart Rate 98 98 Heart Rate [ 98 Brachial] Respiratory 20 18 18 Rate Blood Pressure 128/74 Blood Pressure 148/62 H [Left Brachial artery] O2 Saturation 97 97 97 05/27/21 05/27/21 05/27/21 05:30 10:00 10:45 Temperature 38 C H 37.0 C 37.3 C Heart Rate Heart Rate [ 86 116 H 96 Brachial] Respiratory 20 24 24 Rate Blood Pressure Blood Pressure 142/72 H 147/71 H 126/70 [Left Brachial artery] O2 Saturation 95 94 92 05/27/21 11:24 Temperature Heart Rate Heart Rate [ Brachial] Respiratory Rate Blood Pressure 119/59 L Blood Pressure [Left Brachial artery] O2 Saturation Oxygen O2 Source Room air I&O (Last 24 Hrs): Intake and Output Totals x24h 05/25/21 05/26/21 05/27/21 23:59 23:59 23:59 Intake Total 1000 310 Output Total 20 100 Balance 980 210 General: Alert, Oriented x3, Cooperative, No acute distress HEENT: Atraumatic Neck: Supple Lymphatic: no adenopathy Neuro: Alert, Non Focal, Oriented Times 3 Cardiovascular: Regular rate, Normal S1, Normal S2 Respiratory: Chest non-tender, No respiratory distress Abdomen: Normal bowel sounds, Soft Extremities: Normal pulses - Results Results: Laboratory Results WBC 8.4 x10^3/uL (4.8-10.8) 05/27/21 06:44 RBC 3.24 10^6/uL (4.70-6.10) L 05/27/21 06:44 Hgb 10.4 g/dL (14.0-18.0) L 05/27/21 06:44 Hct 33.2 % (42.0-52.0) L 05/27/21 06:44 MCV 102.5 fL (80.0-94.0) H 05/27/21 06:44 MCH 32.1 pg (27.0-31.0) H 05/27/21 06:44 MCHC 31.3 g/dL (32.0-36.0) L 05/27/21 06:44 RDW 13.8 % (12.0-15.0) 05/27/21 06:44 Plt Count 124 10^3/uL (130-450) L 05/27/21 06:44 MPV 10.0 fL (7.4-11.4) 05/27/21 06:44 Neut # (Auto) 6.8 10^3/uL (1.5-6.6) H 05/27/21 06:44 Lymph # (Auto) 0.8 10^3/uL (1.5-3.5) L 05/27/21 06:44 [place] # (Auto) 0.7 10^3/uL (0.0-1.0) 05/27/21 06:44 Eos # (Auto) 0.0 10^3/uL (0.0-0.7) 05/27/21 06:44 Baso # (Auto) 0.0 10^3/uL (0.0-0.1) 05/27/21 06:44 Absolute Nucleated RBC 0.02 x10^3/uL 05/27/21 06:44 Nucleated RBC % 0.2 /100WBC 05/27/21 06:44 Sodium 140 mmol/L (135-145) 05/27/21 06:44 Sodium 140 mmol/L (135-145) 05/27/21 06:44 Potassium 3.4 mmol/L (3.5-5.0) L 05/27/21 06:44 Potassium 3.4 mmol/L (3.5-5.0) L 05/27/21 06:44 Chloride 102 mmol/L (101-111) 05/27/21 06:44 Chloride 102 mmol/L (101-111) 05/27/21 06:44 Carbon Dioxide 26 mmol/L (21-32) 05/27/21 06:44 Carbon Dioxide 26 mmol/L (21-32) 05/27/21 06:44 Anion Gap 12.0 (6-13) 05/27/21 06:44 Anion Gap 12.0 (6-13) 05/27/21 06:44 BUN 37 mg/dL (6-20) H 05/27/21 06:44 BUN 39 mg/dL (6-20) H 05/27/21 06:44 Creatinine 2.5 mg/dL (0.6-1.2) H 05/27/21 06:44 Creatinine 2.7 mg/dL (0.6-1.2) H 05/27/21 06:44 Estimated GFR (MDRD) 23 (>89) L 05/27/21 06:44 Estimated GFR (MDRD) 25 (>89) L 05/27/21 06:44 Glucose 89 mg/dL (70-100) 05/27/21 06:44 Glucose 91 mg/dL (70-100) 05/27/21 06:44 Lactic Acid 0.7 mmol/L (0.5-2.2) 05/27/21 08:22 Calcium 7.9 mg/dL (8.5-10.3) L 05/27/21 06:44 Calcium 8.0 mg/dL (8.5-10.3) L 05/27/21 06:44 Magnesium 2.1 mg/dL (1.7-2.8) 05/27/21 06:44 Total Bilirubin 2.4 mg/dL (0.2-1.0) H 05/27/21 06:44 AST 43 IU/L (10-42) H 05/27/21 06:44 ALT 33 IU/L (10-60) 05/27/21 06:44 Alkaline Phosphatase 88 IU/L (42-121) 05/27/21 06:44 Troponin I High Sens 50.0 ng/L (2.3-19.7) H* 05/27/21 06:44 B-Natriuretic Peptide 190 pg/mL (5-100) H 05/26/21 20:22 Total Protein 5.8 g/dL (6.7-8.2) L 05/27/21 06:44 Albumin 2.7 g/dL (3.2-5.5) L 05/27/21 06:44 Globulin 3.1 g/dL (2.1-4.2) 05/27/21 06:44 Albumin/Globulin Ratio 0.9 (1.0-2.2) L 05/27/21 06:44 Urine Color DARK YELLOW 05/26/21 22:02 Urine Clarity CLEAR (CLEAR) 05/26/21 22:02 Urine pH 5.5 PH (5.0-7.5) 05/26/21 22:02 Ur Specific [place] 1.025 (1.002-1.030) 05/26/21 22:02 Urine Protein 100 mg/dL (NEGATIVE) H 05/26/21 22:02 Urine Glucose (UA) NEGATIVE mg/dL (NEGATIVE) 05/26/21 22:02 Urine Ketones NEGATIVE mg/dL (NEGATIVE) 05/26/21 22:02 Urine Occult Blood MODERATE (NEGATIVE) H 05/26/21 22:02 Urine Nitrite NEGATIVE (NEGATIVE) 05/26/21 22:02 Urine Bilirubin NEGATIVE (NEGATIVE) 05/26/21 22:02 Urine Urobilinogen 1 (NORMAL) E.U./dL (NORMAL) 05/26/21 22:02 Ur Leukocyte Esterase NEGATIVE (NEGATIVE) 05/26/21 22:02 Urine RBC 6-10 /HPF (0-5) H 05/26/21 22:02 Urine WBC 4-5 /HPF (0-3) 05/26/21 22:02 Ur Squamous Epith Cells FEW Squamous (<= Few) 05/26/21 22:02 Urine Bacteria Few /HPF (None Seen) 05/26/21 22:02 Urine Casts 11-25Course Granular /LPF 05/26/21 22:02 Ur Microscopic Review INDICATED 05/26/21 22:02 Urine Culture Comments NOT INDICATED 05/26/21 22:02 Nasal Adenovirus (PCR) NOT DETECTED 05/26/21 21:20 Nasal B. parapertussis DNA (PCR) NOT DETECTED 05/26/21 21:20 Nasal Coronavir 229E PCR NOT DETECTED 05/26/21 21:20 Nasal Coronavir HKU1 PCR NOT DETECTED 05/26/21 21:20 Nasal Coronavir NL63 PCR NOT DETECTED 05/26/21 21:20 Nasal Coronavir OC43 PCR NOT DETECTED 05/26/21 21:20 Nasal Enterovir/Rhinovir PCR NOT DETECTED 05/26/21 21:20 Nasal Influenza B PCR NOT DETECTED 05/26/21 21:20 Nasal Influenza A PCR NOT DETECTED 05/26/21 21:20 Nasal Parainfluen 1 PCR NOT DETECTED 05/26/21 21:20 Nasal Parainfluen 2 PCR NOT DETECTED 05/26/21 21:20 Nasal Parainfluen 3 PCR NOT DETECTED 05/26/21 21:20 Nasal Parainfluen 4 PCR NOT DETECTED 05/26/21 21:20 Nasal RSV (PCR) NOT DETECTED 05/26/21 21:20 Nasal B.pertussis DNA PCR NOT DETECTED 05/26/21 21:20 Nasal C.pneumoniae (PCR) NOT DETECTED 05/26/21 21:20 Adam Human Metapneumo PCR NOT DETECTED 05/26/21 21:20 Nasal M.pneumoniae (PCR) NOT DETECTED 05/26/21 21:20 Nasal SARS-CoV-2 (PCR) NOT DETECTED 05/26/21 21:20 Ethyl Alcohol < 5.0 mg/dL 05/27/21 06:44 - Procedures Procedures: Procedures CATARAC PHACOEMULS/ASPIR (04/15/15) INSERT LENS AT CATAR EXT (04/15/15) REPLACEMENT OF RIGHT LENS WITH SYNTH SUB, PERC APPROACH (05/06/15) ABX Reporting Has patient been on IV antibiotics over the past 48 hours?: Yes Current Medications - Current Medications Current Medications: Active Medications Albuterol (Albuterol Neb 2.5 Mg/3 Ml) 2.5 mg INH RTQ4H PRN PRN Reason: Wheezing Allopurinol (Allopurinol 100 Mg Tablet) 100 mg PO DAILY [facility] Last Admin: 05/27/21 09:29 Dose: 100 mg Documented by: Atorvastatin Calcium (Atorvastatin 40 Mg Tablet) 40 mg PO DAILY [facility] Last Admin: 05/27/21 09:30 Dose: 40 mg Documented by: Budesonide (Budesonide 0.5 Mg/2 Ml Neb) 0.5 mg INH RTBID [facility] Cholecalciferol (Cholecalciferol 25 Mcg Tablet) 50 mcg PO DAILY [facility] Last Admin: 05/27/21 09:29 Dose: 50 mcg Documented by: Heparin Sodium (Porcine) (Heparin 5,000 Unit/Ml Vial) 5,000 unit SUBQ BID [facility] Piperacillin Sod/Tazobactam (Sod 3.375 gm/ Sodium Chloride) 100 mls @ 25 mls/hr IV Q8H [facility] Sodium Chloride (Normal Saline 0.9%) 1,000 mls @ 83.3 mls/hr IV .Q12H1M [facility] Stop: 05/28/21 11:55 Isosorbide Mononitrate (Isosorbide Mononitrate Er 30 Mg Tablet) 60 mg PO DAILY [facility] Last Admin: 05/27/21 09:30 Dose: 60 mg Documented by: Metoprolol Succinate (Metoprolol Succinate 50 Mg Tablet) 75 mg PO BID [facility] Metoprolol Tartrate (Metoprolol 5 Mg/5 Ml Vial) 5 mg IVP Q6H PRN PRN Reason: Tachycardia Ondansetron HCl (Ondansetron 4 Mg/2 Ml Vial) 4 mg IVP Q6HR PRN PRN Reason: Nausea / Vomiting Pantoprazole Sodium (Pantoprazole 40 Mg Tablet) 40 mg PO DAILY [facility] Last Admin: 05/27/21 09:29 Dose: 40 mg Documented by: Saccharomyces Boulardii (Saccharomyces Boulardii 250 Mg Capsule) 250 mg PO BIDWM [facility] Last Admin: 05/27/21 09:30 Dose: 250 mg Documented by: Sodium Chloride (Sodium Chloride Flush 0.9% 10 Ml Syringe) 10 ml IVP PRN PRN PRN Reason: NEEDED PER PROVIDER ORDERS Sodium Chloride (Sodium Chloride Flush 0.9% 10 Ml Syringe) 10 ml IVP 0100,0900,1700 [facility] Last Admin: 05/27/21 09:30 Dose: 10 ml Documented by: Tamsulosin HCl (Tamsulosin 0.4 Mg Capsule) 0.4 mg PO DAILY [facility] Last Admin: 05/27/21 09:30 Dose: 0.4 mg Documented by: Alfuzosin HCl [Alfuzosin HCl ER] 10 mg PO DAILY 04/15/15 Cholecalciferol (Vitamin D3) [Vitamin D3] 2 cap PO DAILY 04/15/15 Isosorbide Mononitrate [Isosorbide Mononitrate ER] 60 mg PO DAILY 04/15/15 Metoprolol Succinate [Toprol Xl] 50 mg PO BID 04/15/15 Omeprazole 2 tab PO DAILY 04/15/15 allopurinoL [Allopurinol] 100 mg PO BID 04/15/15 Atorvastatin Calcium 40 mg PO DAILY 05/26/21
--- NOTE | 2021-05-27 12:03 | PHARMACY PROGRESS NOTE ---
- Best Possible Medication History Admit Date and Time: 05/27/21 1053 Processed by: Nursing Medication History completed: Yes As the person ultimately responsible for medication therapy, providers are able to order a medication from an existing home medication list in [facility] via the "Reconcile Routine" prior to Confirmation of that medication by support team assoc. Such practice is discouraged except when the physician, in their clinical judgment, deems that a medical need exists for a medication without regard to previous use.
[2021-05-27] MEDS: PIPERACILLIN/TAZOBACTAM 3.375 GM in SODIUM CHLORIDE 0.9% MINIBAG 100 ML IV SCH ×2 (13:07→22:47)
[2021-05-27] MEDS: SODIUM CHLORIDE 0.9% 1,000 ML IV SCH (13:14)
[2021-05-27] MEDS ORDERED: ACETAMINOPHEN 325 MG TABLET PO PRN (17:36)
[2021-05-27] MEDS: BUDESONIDE 0.5 MG/2 ML NEB INH SCH ×2 (22:45→22:46)
[2021-05-27] MEDS: METOPROLOL SUCCINATE 50 MG TABLET PO SCH (22:47)
[2021-05-27] MEDS: ALBUTEROL NEB 2.5 MG/3 ML INH PRN (22:47)
[2021-05-27] MEDS: HEPARIN 5,000 UNIT/ML VIAL SUBQ SCH (22:52)
[2021-05-28] MEDS: SODIUM CHLORIDE 0.9% 1,000 ML IV SCH ×3 (00:01→23:02)
[2021-05-28] MEDS: SODIUM CHLORIDE FLUSH 0.9% 10 ML SYRINGE IVP SCH ×3 (04:07→20:27)
[2021-05-28] MEDS: PIPERACILLIN/TAZOBACTAM 3.375 GM in SODIUM CHLORIDE 0.9% MINIBAG 100 ML IV SCH ×3 (04:08→20:26)
[2021-05-28 05:54] LABS: BASOPHILS % (AUTO) 0.4 %; EOSINOPHILS # (AUTO) 0.1 10^3/uL (0.0-0.7); HCT - HEMATOCRIT 30.7 % (42.0-52.0); HGB - HEMOGLOBIN 9.6 g/dL (14.0-18.0); LYMPHOCYTES # (AUTO) 0.9 10^3/uL (1.5-3.5); LYMPHOCYTES % (AUTO) 10.5 %; MEAN CORPUSCULAR HEMOGLOBIN 31.8 pg (27.0-31.0); MEAN CORPUSCULAR HGB CONC 31.3 g/dL (32.0-36.0); MEAN CORPUSCULAR VOLUME 101.7 fL (80.0-94.0); MEAN PLATELET VOLUME 9.9 fL (7.4-11.4); MONOCYTES # (AUTO) 0.7 10^3/uL (0.0-1.0); MONOCYTES % (AUTO) 8.2 %; NEUTROPHILS # (AUTO) 6.7 10^3/uL (1.5-6.6); NEUTROPHILS % (AUTO) 79.3 %; PLT - PLATELET COUNT 148 10^3/uL (130-450); RED BLOOD COUNT 3.02 10^6/uL (4.70-6.10); RED CELL DISTRIBUTION WIDTH 13.8 % (12.0-15.0); WHITE BLOOD COUNT 8.4 x10^3/uL (4.8-10.8)
[2021-05-28 06:06] LABS: ALBUMIN 2.4 g/dL (3.2-5.5); ALBUMIN/GLOBULIN RATIO 0.7 (1.0-2.2); BILIRUBIN,TOTAL 1.4 mg/dL (0.2-1.0); CALCIUM 7.9 mg/dL (8.5-10.3); CREATININE 2.8 mg/dL (0.6-1.2); POTASSIUM 3.6 mmol/L (3.5-5.0); TOTAL PROTEIN 5.8 g/dL (6.7-8.2)
--- NOTE | 2021-05-28 08:54 | CT Report ---
PROCEDURE: CHEST WO INDICATIONS: Shortness of breath TECHNIQUE: Noncontrast 1mm axial images were acquired from the pulmonary apices to the posterior costophrenic an gles. Axial 5 mm soft tissue kernel reconstructions were performed as well as 8 mm axial MIP and cor onal and sagittal 5 mm reformations. For radiation dose reduction, the following was used: automate d exposure control, adjustment of mA and/or kV according to patient size. COMPARISON: None. FINDINGS: Thyroid: Homogeneous. Vasculature: Normal size and contour. Heart: Mild cardiomegaly. No pericardial effusion. Coronary artery calcifications are seen. Mediastinum/junaid: No pathologically enlarged lymph nodes by size criteria. Lung/pleura: Small right pleural effusion with adjacent atelectasis. An azygos fissure is noted. Plat e atelectasis in the right middle lobe. No pneumothorax. Tracheobronchial tree: Patent. Upper abdomen: Perihepatic ascites, partially imaged. Enlargement of the spleen measuring up to 14.3 cm. Although partially imaged, the gallbladder appears hydropic. Bones: No significant abnormality. Grade 1 anterolisthesis at C7-T1. Chest wall: No significant abnormality. IMPRESSION: 1.Small right pleural effusion with adjacent atelectasis. 2.Although partially imaged, the gallbladder appears hydropic and perihepatic ascites. Consider ultra sound for further evaluation as clinically warranted. 3.Splenomegaly. Reviewed by: Aaron Kunz MD on 05/28/2021 8:53 AM PDT Approved by: Aaron Kunz MD on 05/28/2021 8:53 AM PDT Station ID: [id number]
[2021-05-28] MEDS: TAMSULOSIN 0.4 MG CAPSULE PO SCH (08:58)
[2021-05-28] MEDS: allopurinoL 100 MG TABLET PO SCH (08:58)
[2021-05-28] MEDS: HEPARIN 5,000 UNIT/ML VIAL SUBQ SCH ×2 (08:58→20:27)
[2021-05-28] MEDS: SACCHAROMYCES BOULARDII 250 MG CAPSULE PO SCH ×2 (08:58→17:18)
[2021-05-28] MEDS: ISOSORBIDE MONONITRATE ER 30 MG TABLET PO SCH (08:59)
[2021-05-28] MEDS: CHOLECALCIFEROL 25 MCG TABLET PO SCH (08:59)
[2021-05-28] MEDS: METOPROLOL SUCCINATE 50 MG TABLET PO SCH ×2 (08:59→20:26)
[2021-05-28] MEDS: PANTOPRAZOLE 40 MG TABLET PO SCH (08:59)
[2021-05-28] MEDS: ATORVASTATIN 40 MG TABLET PO SCH (08:59)
--- NOTE | 2021-05-28 09:08 | PROVIDER PROGRESS NOTE ---
Assessment/Plan - Problem List (1) Fever Assessment/Plan: 05/28 pt still had spot fever on yesterday afternoon, but no fever on last night and as far today. pt report he feel better. he denies pain, no abdominal pain. he tolerated his diet. blood culture show negative. CT of chest show small right pleural effusion with adjacent atelectasis, Gallbladder appear hydropic and perihepatic ascites. clinically pt is stable, no acute complaints, pt may followup with GI surgeon as out-pt continue Zosyn Patient has low degree fever 38. CXR and UA did not indicate infection, lactic acid is at normal arrange. Patient report to have diarrhea a few days in the home. pt denies abdominal pain or tenderness. suspect pt may have colitis. We will have blood culture for patient, started with Zosyn and probiotics. (2) Acute kidney injury Conclusion/Plan: 05/28 creatinine 2.8 as his admission. but pt has CKD at stage 4, basically pt is stable as his chronic stage. because pt's respiratory status, he has small pleural effusion and present mild wheezing although it is improved comparing with yesterday, precaution to fluid overloaded, continue gently IVF at 75cc/h, continue lab monitor, avoid nephrotoxic agents. improved. pt has hx of stage IV CKD. today creatinine is 2.5 decreased from yesterday 2.8. pt has baseline of creatinine was 2.2. continue IVF but precauti on of fluid overloaded. pt is at high risk to have fluid overloaded. reduced IVF to 83.3cc/h, continue lab monitor (3) Dehydration Conclusion/Plan: it was likely caused by his diarrhea at home. pt has no diarrhea now. continue appropriate IVF and vital monitor (4) Elevated troponin Conclusion/Plan: pt denies chest pain, he is Hemodynamically stable. EKG did not show ischemic change. repeated troponin at flat. 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 continue home lipitor, metoprolol, imdur (5) Coronary artery disease Conclusion/Plan: stable, Patient had stent placed in 2011. continue home Metoprolol, Imdur, lipitor continue tele and vital monitor (6) Hypertension Conclusion/Plan: stable, continue home Metoprolol succinate and isosorbide mononitrate (6) Hyperlipidemia Conclusion/Plan: On atorvastatin 40 mg p.o. daily. (7) Generalized weakness Conclusion/Plan: 05/28 improved, Continue PT and OT evaluation and treatment it is Likely due to diarrhea, dehydration and infection. consult with PT/OT (8) Hx of gout Conclusion/Plan: On allopurinol 100 mg p.o. twice daily (9) BPH (benign prostatic hyperplasia) Conclusion/Plan: On alfuzosin 10 mg p.o. daily (10)SVT 115, resolved tele reveal pt has 143 SVT. pt Denies chest pain or palpitation. Patient was given intravenous metoprolol in ER to control. we will continue metoprolol as needed for SVT, and slight increase PO metoprolol, continue tele and vital monitor (11)wheezing 115, improved, Less wheezy compare yesterday. Continue breathing treatment, continue albuterol, DuoNeb and Pulmicort pt Patient reported he has chronically wheezy for his whole life Because of his allergy. Chest x-ray does not show acute process. but pt has mild Tachypnea, 92% oxygen saturation on room air. We will add albuterol PRN, Pulmicort - Current Meds Current Meds: Current Medications Generic Name Dose Route Start Last Admin Trade Name Freq PRN Reason Stop Dose Admin Albuterol 2.5 mg 05/27/21 11:45 05/27/21 22:47 Albuterol Neb 2.5 Mg/3 Ml INH 2.5 mg RTQ4H PRN Administration Wheezing Allopurinol 100 mg 05/27/21 09:00 05/27/21 09:29 Allopurinol 100 Mg Tablet PO 100 mg DAILY INEZ Administration Atorvastatin Calcium 40 mg 05/27/21 09:00 05/27/21 09:30 Atorvastatin 40 Mg Tablet PO 40 mg DAILY INEZ Administration Budesonide 0.5 mg 05/27/21 12:00 05/27/21 22:46 Budesonide 0.5 Mg/2 Ml Neb INH Not Given RTBID INEZ Cholecalciferol 50 mcg 05/27/21 09:00 05/27/21 09:29 Cholecalciferol 25 Mcg Tablet PO 50 mcg DAILY INEZ Administration Heparin Sodium (Porcine) 5,000 unit 05/27/21 21:00 05/27/21 22:52 Heparin 5,000 Unit/Ml Vial SUBQ 5,000 unit BID INEZ Administration Piperacillin Sod/Tazobactam 100 mls @ 25 mls/hr 05/27/21 12:00 05/28/21 04:08 Sod 3.375 gm/ Sodium Chloride IV 25 mls/hr Q8H INEZ Administration Isosorbide Mononitrate 60 mg 05/27/21 09:00 05/27/21 09:30 Isosorbide Mononitrate Er 30 Mg Tablet PO 60 mg DAILY INEZ Administration Metoprolol Succinate 50 mg 05/27/21 21:00 05/27/21 22:47 Metoprolol Succinate 50 Mg Tablet PO 50 mg BID INEZ Administration Pantoprazole Sodium 40 mg 05/27/21 09:00 05/27/21 09:29 Pantoprazole 40 Mg Tablet PO 40 mg DAILY INEZ Administration Saccharomyces Boulardii 250 mg 05/27/21 08:00 05/27/21 17:22 Saccharomyces Boulardii 250 Mg Capsule PO 250 mg BIDWM INEZ Administration Sodium Chloride 10 ml 05/27/21 01:00 05/28/21 04:07 Sodium Chloride Flush 0.9% 10 Ml Syringe IVP Not Given 0100,0900,1700 INEZ Tamsulosin HCl 0.4 mg 05/27/21 09:00 05/27/21 09:30 Tamsulosin 0.4 Mg Capsule PO 0.4 mg DAILY INEZ Administration - Lab Result Fish Bone Diagrams: 05/28/21 05:20 05/28/21 05:10 - Additional Planning My Orders: My Active Orders 05/27/21 08:20 Blood Culture [CULTURE, BLOOD #2] [] Urgent 05/27/21 08:22 Blood Culture [CULTURE, BLOOD #1] [] Urgent 05/27/21 08:55 Out of bed 3+ hours today [RC] TID 05/27/21 10:49 Metoprolol Inj [Lopressor Inj] 5 mg IVP Q6H PRN 05/27/21 11:45 Nebulizer/MDI Tx. [RC] .Q4 PRN Resp Teach Nebulizer/MDI [RC] .ONCE Albuterol 2.5 mg INH RTQ4H PRN 05/27/21 11:54 Nebulizer/MDI Tx. [RC] QID Resp Teach Nebulizer/MDI [RC] .ONCE 05/27/21 12:00 Budesonide [Pulmicort] 0.5 mg INH RTBID Piperacillin/Tazobactam [Zosyn] 3.375 gm Sodium Chloride 0.9% Minibag [Normal Saline 0.9% Minibag] 100 ml IV Q8H 05/27/21 17:36 Acetaminophen [Tylenol] 650 mg PO Q4HR PRN 05/27/21 21:00 Heparin [Heparin Sodium (Porcine)] 5,000 unit SUBQ BID Metoprolol Succinate [Toprol Xl] 50 mg PO BID 05/28/21 09:00 Sodium Chloride 0.9% [Normal Saline 0.9%] 1,000 ml IV 75 mls/hr 05/29/21 05:00 CMP [COMPREHENSIVE METABOLIC PANEL] [CHEM] DAILYLAB 05/30/21 05:00 CMP [COMPREHENSIVE METABOLIC PANEL] [CHEM] DAILYLAB 05/31/21 05:00 CMP [COMPREHENSIVE METABOLIC PANEL] [CHEM] DAILYLAB 06/01/21 05:00 CMP [COMPREHENSIVE METABOLIC PANEL] [CHEM] DAILYLAB Subjective - Subjective Patient Reports: Feeling Better, Resting Comfortably Objective Vital Signs: Vital Signs - 24 hr 05/27/21 05/27/21 05/27/21 10:00 10:45 11:24 Temperature 37.0 C 37.3 C Heart Rate [ Activity] Heart Rate [ 116 H 96 Brachial] Heart Rate [ Sitting] Respiratory 24 24 Rate Blood Pressure 119/59 L Blood Pressure [Activity] Blood Pressure 147/71 H 126/70 [Left Brachial artery] Blood Pressure [Right Brachial artery] Blood Pressure [Sitting] O2 Saturation 94 92 05/27/21 05/27/21 05/27/21 13:54 15:10 17:00 Temperature 37.2 C 38.3 C H Heart Rate [ 74 Activity] Heart Rate [ 102 H 90 Brachial] Heart Rate [ 100 Sitting] Respiratory 22 32 H Rate Blood Pressure Blood Pressure 149/71 H [Activity] Blood Pressure 139/66 H 114/72 [Left Brachial artery] Blood Pressure [Right Brachial artery] Blood Pressure 117/71 [Sitting] O2 Saturation 92 94 05/27/21 05/28/21 05/28/21 18:39 00:40 05:40 Temperature 37.0 C 36.7 C 36.9 C Heart Rate [ Activity] Heart Rate [ 50 L 87 84 Brachial] Heart Rate [ Sitting] Respiratory 25 H 24 31 H Rate Blood Pressure Blood Pressure [Activity] Blood Pressure 127/66 [Left Brachial artery] Blood Pressure 133/73 H 134/72 H [Right Brachial artery] Blood Pressure [Sitting] O2 Saturation 94 97 95 Oxygen O2 Source Room air I&O (Last 24 Hrs): Intake and Output Totals x24h 05/26/21 05/27/21 05/28/21 23:59 23:59 23:59 Intake Total 1000 2480 1200 Output Total 20 100 Balance 980 2380 1200 General: Alert, Oriented x3, Cooperative, No acute distress HEENT: Atraumatic Neck: Supple Lymphatic: no adenopathy Neuro: Alert, Non Focal, Oriented Times 3 Cardiovascular: Regular rate, Normal S1, Normal S2 Respiratory: Chest non-tender, No respiratory distress Abdomen: Normal bowel sounds, Soft Extremities: Normal pulses - Results Results: Laboratory Results WBC 8.4 x10^3/uL (4.8-10.8) 05/28/21 05:20 RBC 3.02 10^6/uL (4.70-6.10) L 05/28/21 05:20 Hgb 9.6 g/dL (14.0-18.0) L 05/28/21 05:20 Hct 30.7 % (42.0-52.0) L 05/28/21 05:20 MCV 101.7 fL (80.0-94.0) H 05/28/21 05:20 MCH 31.8 pg (27.0-31.0) H 05/28/21 05:20 MCHC 31.3 g/dL (32.0-36.0) L 05/28/21 05:20 RDW 13.8 % (12.0-15.0) 05/28/21 05:20 Plt Count 148 10^3/uL (130-450) 05/28/21 05:20 MPV 9.9 fL (7.4-11.4) 05/28/21 05:20 Neut # (Auto) 6.7 10^3/uL (1.5-6.6) H 05/28/21 05:20 Lymph # (Auto) 0.9 10^3/uL (1.5-3.5) L 05/28/21 05:20 Jewell # (Auto) 0.7 10^3/uL (0.0-1.0) 05/28/21 05:20 Eos # (Auto) 0.1 10^3/uL (0.0-0.7) 05/28/21 05:20 Baso # (Auto) 0.0 10^3/uL (0.0-0.1) 05/28/21 05:20 Absolute Nucleated RBC 0.00 x10^3/uL 05/28/21 05:20 Nucleated RBC % 0.0 /100WBC 05/28/21 05:20 Sodium 141 mmol/L (135-145) 05/28/21 05:10 Potassium 3.6 mmol/L (3.5-5.0) 05/28/21 05:10 Chloride 104 mmol/L (101-111) 05/28/21 05:10 Carbon Dioxide 25 mmol/L (21-32) 05/28/21 05:10 Anion Gap 12.0 (6-13) 05/28/21 05:10 BUN 43 mg/dL (6-20) H 05/28/21 05:10 Creatinine 2.8 mg/dL (0.6-1.2) H 05/28/21 05:10 Estimated GFR (MDRD) 22 (>89) L 05/28/21 05:10 Glucose 103 mg/dL (70-100) H 05/28/21 05:10 Lactic Acid 0.7 mmol/L (0.5-2.2) 05/27/21 08:22 Calcium 7.9 mg/dL (8.5-10.3) L 05/28/21 05:10 Magnesium 2.1 mg/dL (1.7-2.8) 05/27/21 06:44 Total Bilirubin 1.4 mg/dL (0.2-1.0) H 05/28/21 05:10 AST 66 IU/L (10-42) H 05/28/21 05:10 ALT 45 IU/L (10-60) 05/28/21 05:10 Alkaline Phosphatase 94 IU/L (42-121) 05/28/21 05:10 Troponin I High Sens 50.0 ng/L (2.3-19.7) H* 05/27/21 06:44 B-Natriuretic Peptide 190 pg/mL (5-100) H 05/26/21 20:22 Total Protein 5.8 g/dL (6.7-8.2) L 05/28/21 05:10 Albumin 2.4 g/dL (3.2-5.5) L 05/28/21 05:10 Globulin 3.4 g/dL (2.1-4.2) 05/28/21 05:10 Albumin/Globulin Ratio 0.7 (1.0-2.2) L 05/28/21 05:10 Urine Color DARK YELLOW 05/26/21 22:02 Urine Clarity CLEAR (CLEAR) 05/26/21 22:02 Urine pH 5.5 PH (5.0-7.5) 05/26/21 22:02 Ur Specific [place] 1.025 (1.002-1.030) 05/26/21 22:02 Urine Protein 100 mg/dL (NEGATIVE) H 05/26/21 22:02 Urine Glucose (UA) NEGATIVE mg/dL (NEGATIVE) 05/26/21 22:02 Urine Ketones NEGATIVE mg/dL (NEGATIVE) 05/26/21 22:02 Urine Occult Blood MODERATE (NEGATIVE) H 05/26/21 22:02 Urine Nitrite NEGATIVE (NEGATIVE) 05/26/21 22:02 Urine Bilirubin NEGATIVE (NEGATIVE) 05/26/21 22:02 Urine Urobilinogen 1 (NORMAL) E.U./dL (NORMAL) 05/26/21 22:02 Ur Leukocyte Esterase NEGATIVE (NEGATIVE) 05/26/21 22:02 Urine RBC 6-10 /HPF (0-5) H 05/26/21 22:02 Urine WBC 4-5 /HPF (0-3) 05/26/21 22:02 Ur Squamous Epith Cells FEW Squamous (<= Few) 05/26/21 22:02 Urine Bacteria Few /HPF (None Seen) 05/26/21 22:02 Urine Casts 11-25Course Granular /LPF 05/26/21 22:02 Ur Microscopic Review INDICATED 05/26/21 22:02 Urine Culture Comments NOT INDICATED 05/26/21 22:02 Nasal Adenovirus (PCR) NOT DETECTED 05/26/21 21:20 Nasal B. parapertussis DNA (PCR) NOT DETECTED 05/26/21 21:20 Nasal Coronavir 229E PCR NOT DETECTED 05/26/21 21:20 Nasal Coronavir HKU1 PCR NOT DETECTED 05/26/21 21:20 Nasal Coronavir NL63 PCR NOT DETECTED 05/26/21 21:20 Nasal Coronavir OC43 PCR NOT DETECTED 05/26/21 21:20 Nasal Enterovir/Rhinovir PCR NOT DETECTED 05/26/21 21:20 Nasal Influenza B PCR NOT DETECTED 05/26/21 21:20 Nasal Influenza A PCR NOT DETECTED 05/26/21 21:20 Nasal Parainfluen 1 PCR NOT DETECTED 05/26/21 21:20 Nasal Parainfluen 2 PCR NOT DETECTED 05/26/21 21:20 Nasal Parainfluen 3 PCR NOT DETECTED 05/26/21 21:20 Nasal Parainfluen 4 PCR NOT DETECTED 05/26/21 21:20 Nasal RSV (PCR) NOT DETECTED 05/26/21 21:20 Nasal B.pertussis DNA PCR NOT DETECTED 05/26/21 21:20 Nasal C.pneumoniae (PCR) NOT DETECTED 05/26/21 21:20 Adam Human Metapneumo PCR NOT DETECTED 05/26/21 21:20 Nasal M.pneumoniae (PCR) NOT DETECTED 05/26/21 21:20 Nasal SARS-CoV-2 (PCR) NOT DETECTED 05/26/21 21:20 Ethyl Alcohol < 5.0 mg/dL 05/27/21 06:44 - Procedures Procedures: Procedures CATARAC PHACOEMULS/ASPIR (04/15/15) INSERT LENS AT CATAR EXT (04/15/15) REPLACEMENT OF RIGHT LENS WITH SYNTH SUB, PERC APPROACH (05/06/15) ABX Reporting Has patient been on IV antibiotics over the past 48 hours?: Yes Current Medications - Current Medications Current Medications: Active Medications Acetaminophen (Acetaminophen 325 Mg Tablet) 650 mg PO Q4HR PRN PRN Reason: Pain or Fever > 38C (100.4F) Albuterol (Albuterol Neb 2.5 Mg/3 Ml) 2.5 mg INH RTQ4H PRN PRN Reason: Wheezing Last Admin: 05/27/21 22:47 Dose: 2.5 mg Documented by: Albuterol/Ipratropium (Ipratropium/Albuterol 3 Ml Neb) 3 ml INH RTQID PRN PRN Reason: Shortness of Air/Wheezing Allopurinol (Allopurinol 100 Mg Tablet) 100 mg PO DAILY [facility] Last Admin: 05/28/21 08:58 Dose: 100 mg Documented by: Atorvastatin Calcium (Atorvastatin 40 Mg Tablet) 40 mg PO DAILY [facility] Last Admin: 05/28/21 08:59 Dose: 40 mg Documented by: Budesonide (Budesonide 0.5 Mg/2 Ml Neb) 0.5 mg INH RTBID [facility] Last Admin: 05/28/21 09:10 Dose: 0.5 mg Documented by: Cholecalciferol (Cholecalciferol 25 Mcg Tablet) 50 mcg PO DAILY [facility] Last Admin: 05/28/21 08:59 Dose: 50 mcg Documented by: Heparin Sodium (Porcine) (Heparin 5,000 Unit/Ml Vial) 5,000 unit SUBQ BID [facility] Last Admin: 05/28/21 08:58 Dose: 5,000 unit Documented by: Piperacillin Sod/Tazobactam (Sod 3.375 gm/ Sodium Chloride) 100 mls @ 25 mls/hr IV Q8H [facility] Last Admin: 05/28/21 04:08 Dose: 25 mls/hr Documented by: Sodium Chloride (Normal Saline 0.9%) 1,000 mls @ 75 mls/hr IV .[id number] [facility] Stop: 05/29/21 11:39 Isosorbide Mononitrate (Isosorbide Mononitrate Er 30 Mg Tablet) 60 mg PO DAILY [facility] Last Admin: 05/28/21 08:59 Dose: 60 mg Documented by: Metoprolol Succinate (Metoprolol Succinate 50 Mg Tablet) 50 mg PO BID [facility] Last Admin: 05/28/21 08:59 Dose: 50 mg Documented by: Metoprolol Tartrate (Metoprolol 5 Mg/5 Ml Vial) 5 mg IVP Q6H PRN PRN Reason: Tachycardia Ondansetron HCl (Ondansetron 4 Mg/2 Ml Vial) 4 mg IVP Q6HR PRN PRN Reason: Nausea / Vomiting Pantoprazole Sodium (Pantoprazole 40 Mg Tablet) 40 mg PO DAILY [facility] Last Admin: 05/28/21 08:59 Dose: 40 mg Documented by: Saccharomyces Boulardii (Saccharomyces Boulardii 250 Mg Capsule) 250 mg PO BIDWM [facility] Last Admin: 05/28/21 08:58 Dose: 250 mg Documented by: Sodium Chloride (Sodium Chloride Flush 0.9% 10 Ml Syringe) 10 ml IVP PRN PRN PRN Reason: NEEDED PER PROVIDER ORDERS Sodium Chloride (Sodium Chloride Flush 0.9% 10 Ml Syringe) 10 ml IVP 0100,0900,1700 [facility] Last Admin: 05/28/21 08:59 Dose: 10 ml Documented by: Tamsulosin HCl (Tamsulosin 0.4 Mg Capsule) 0.4 mg PO DAILY [facility] Last Admin: 05/28/21 08:58 Dose: 0.4 mg Documented by: Alfuzosin HCl [Alfuzosin HCl ER] 10 mg PO DAILY 04/15/15 Cholecalciferol (Vitamin D3) [Vitamin D3] 2 cap PO DAILY 04/15/15 Isosorbide Mononitrate [Isosorbide Mononitrate ER] 60 mg PO DAILY 04/15/15 Metoprolol Succinate [Toprol Xl] 50 mg PO BID 04/15/15 Omeprazole 2 tab PO DAILY 04/15/15 allopurinoL [Allopurinol] 100 mg PO BID 04/15/15 Atorvastatin Calcium 40 mg PO DAILY 05/26/21
[2021-05-28] MEDS ORDERED: IPRATROPIUM/ALBUTEROL 3 ML NEB INH PRN (09:09)
[2021-05-28] MEDS: BUDESONIDE 0.5 MG/2 ML NEB INH SCH ×2 (09:10→20:15)
[2021-05-28] MEDS: ALBUTEROL NEB 2.5 MG/3 ML INH PRN (20:15)
[2021-05-29] MEDS: PIPERACILLIN/TAZOBACTAM 3.375 GM in SODIUM CHLORIDE 0.9% MINIBAG 100 ML IV SCH ×2 (04:19→12:05)
[2021-05-29] MEDS: SODIUM CHLORIDE FLUSH 0.9% 10 ML SYRINGE IVP SCH ×3 (04:19→18:33)
[2021-05-29 06:29] LABS: BASOPHILS % (AUTO) 0.4 %; EOSINOPHILS # (AUTO) 0.1 10^3/uL (0.0-0.7); EOSINOPHILS % (AUTO) 1.4 %; HCT - HEMATOCRIT 32.4 % (42.0-52.0); LYMPHOCYTES # (AUTO) 0.9 10^3/uL (1.5-3.5); MEAN CORPUSCULAR HEMOGLOBIN 32.2 pg (27.0-31.0); MEAN CORPUSCULAR HGB CONC 30.9 g/dL (32.0-36.0); MEAN CORPUSCULAR VOLUME 104.2 fL (80.0-94.0); MEAN PLATELET VOLUME 9.8 fL (7.4-11.4); MONOCYTES # (AUTO) 0.7 10^3/uL (0.0-1.0); MONOCYTES % (AUTO) 9.4 %; NEUTROPHILS # (AUTO) 5.2 10^3/uL (1.5-6.6); NEUTROPHILS % (AUTO) 74.9 %; PLT - PLATELET COUNT 149 10^3/uL (130-450); RED BLOOD COUNT 3.11 10^6/uL (4.70-6.10); WHITE BLOOD COUNT 6.9 x10^3/uL (4.8-10.8)
[2021-05-29 06:41] LABS: ALBUMIN 2.5 g/dL (3.2-5.5); ALBUMIN/GLOBULIN RATIO 0.8 (1.0-2.2); BILIRUBIN,TOTAL 1.1 mg/dL (0.2-1.0); CALCIUM 8.1 mg/dL (8.5-10.3); CREATININE 2.5 mg/dL (0.6-1.2); POTASSIUM 4.1 mmol/L (3.5-5.0); TOTAL PROTEIN 5.8 g/dL (6.7-8.2)
[2021-05-29] MEDS: BUDESONIDE 0.5 MG/2 ML NEB INH SCH ×2 (07:23→19:30)
[2021-05-29] MEDS: ALBUTEROL NEB 2.5 MG/3 ML INH PRN (07:23)
[2021-05-29] MEDS: HEPARIN 5,000 UNIT/ML VIAL SUBQ SCH ×2 (08:47→20:48)
[2021-05-29] MEDS: allopurinoL 100 MG TABLET PO SCH (08:49)
[2021-05-29] MEDS: CHOLECALCIFEROL 25 MCG TABLET PO SCH (08:49)
[2021-05-29] MEDS: ATORVASTATIN 40 MG TABLET PO SCH (08:49)
[2021-05-29] MEDS: PANTOPRAZOLE 40 MG TABLET PO SCH (08:49)
[2021-05-29] MEDS: TAMSULOSIN 0.4 MG CAPSULE PO SCH (08:50)
[2021-05-29] MEDS: ISOSORBIDE MONONITRATE ER 30 MG TABLET PO SCH (08:50)
[2021-05-29] MEDS: SACCHAROMYCES BOULARDII 250 MG CAPSULE PO SCH ×2 (08:50→18:33)
[2021-05-29] MEDS: METOPROLOL SUCCINATE 50 MG TABLET PO SCH ×2 (08:50→20:49)
--- NOTE | 2021-05-29 13:12 | Ultrasound Report ---
PROCEDURE: Abdomen Complete INDICATIONS: Fever. Pain. Abnormal LFT's. TECHNIQUE: Real-time scanning was performed of the abdominal and retroperitoneal organs, with image documentatio n. COMPARISON: Correlation is made with chest CT, 05/28/2021. FINDINGS: Liver: The liver demonstrates normal size. The liver demonstrates moderately increased echogenicity , which limits ultrasound sensitivity for detection of masses. The left lobe of the liver is not seen , secondary to overlying bowel gas. Gallbladder: No gallstones are seen. There is moderate sludge seen. The gallbladder wall is thickened to 10 mm. There is an apparent 6 x 4 mm gallbladder wall polyp seen. The gallbladder wall does not a ppear thickened. There is no specific pericholecystic fluid. The sonographic Leyva's sign is negativ e. Biliary ducts: Intrahepatic bile ducts are non-dilated. Extrahepatic bile duct caliber measures 5 m m. Normal is 6-7 mm or less in diameter, or 10 mm or less post-cholecystectomy. Pancreas: A gastric tube is seen, with the tip not visible within the [id number] of this image, a lthough clearly below the diaphragm. Spleen: The spleen is enlarged, measuring up to 16 cm. Calculated splenic volume is 418 cc. Kidneys: Kidneys are normal in size and echotexture. Right kidney measures 11.4 cm long; left kidne y measures 11.2 cm long. No hydronephrosis. No solid masses. Numerous bilateral kidney stones are seen. The largest on the right measures up to 3.1 cm superiorly. The largest on the left measures up to 2.1 cm superiorly. Bilateral duplicated renal collecting system incidentally noted. Simple appeari ng bilateral renal cysts can be seen. Aorta: Visualized aorta is normal in caliber at less than 3 cm. Iliacs: Proximal common iliac arteries are normal in caliber at less than 2.5 cm. IVC: Intrahepatic inferior vena cava is patent. Miscellaneous: There is trace ascites, including within Morison's pouch. A small right-sided pleural effusion is seen. This study is limited by body habitus and bowel gas. IMPRESSION: Mild ascites is seen. Small right-sided pleural effusion. Sludge is seen within the gallbladder. The gallbladder wall is thickened, which is nonspecific and ma y be secondary to the ascites. No additional sonographic signs of cholecystitis are seen. No biliary dilatation. A gallbladder wall polyp is also seen. Enlarged, fatty liver. Splenomegaly. Several large nonobstructing kidney stones. Simple appearing bilateral renal cysts noted. Reviewed by: Carlos Infante MD on 05/29/2021 12:11 PM AKNESS Approved by: Carlos Infante MD on 05/29/2021 12:11 PM [facility]ESH[facility] Station ID: [id number]
--- NOTE | 2021-05-29 13:24 | PROVIDER PROGRESS NOTE ---
Subjective - Prog Note Date Prog Note Date: 05/29/21 - Subjective Subjective: Feels much improved. Still feels weak overall but better than before. Diarrhea is improved although he still is still quite soft and not well formed. Denies any abdominal pain. Current Medications - Current Medications Current Medications: Active Medications Acetaminophen (Acetaminophen 325 Mg Tablet) 650 mg PO Q4HR PRN PRN Reason: Pain or Fever > 38C (100.4F) Last Admin: 05/28/21 15:54 Dose: 650 mg Documented by: Albuterol (Albuterol Neb 2.5 Mg/3 Ml) 2.5 mg INH RTQ4H PRN PRN Reason: Wheezing Last Admin: 05/29/21 07:23 Dose: 2.5 mg Documented by: Albuterol/Ipratropium (Ipratropium/Albuterol 3 Ml Neb) 3 ml INH RTQID PRN PRN Reason: Shortness of Air/Wheezing Allopurinol (Allopurinol 100 Mg Tablet) 100 mg PO DAILY [facility] Last Admin: 05/29/21 08:49 Dose: 100 mg Documented by: Atorvastatin Calcium (Atorvastatin 40 Mg Tablet) 40 mg PO DAILY [facility] Last Admin: 05/29/21 08:49 Dose: 40 mg Documented by: Budesonide (Budesonide 0.5 Mg/2 Ml Neb) 0.5 mg INH RTBID [facility] Last Admin: 05/29/21 07:23 Dose: 0.5 mg Documented by: Cholecalciferol (Cholecalciferol 25 Mcg Tablet) 50 mcg PO DAILY [facility] Last Admin: 05/29/21 08:49 Dose: 50 mcg Documented by: Heparin Sodium (Porcine) (Heparin 5,000 Unit/Ml Vial) 5,000 unit SUBQ BID [facility] Last Admin: 05/29/21 08:47 Dose: 5,000 unit Documented by: Isosorbide Mononitrate (Isosorbide Mononitrate Er 30 Mg Tablet) 60 mg PO DAILY [facility] Last Admin: 05/29/21 08:50 Dose: 60 mg Documented by: Metoprolol Succinate (Metoprolol Succinate 50 Mg Tablet) 50 mg PO BID [facility] Last Admin: 05/29/21 08:50 Dose: 50 mg Documented by: Metoprolol Tartrate (Metoprolol 5 Mg/5 Ml Vial) 5 mg IVP Q6H PRN PRN Reason: Tachycardia Ondansetron HCl (Ondansetron 4 Mg/2 Ml Vial) 4 mg IVP Q6HR PRN PRN Reason: Nausea / Vomiting Pantoprazole Sodium (Pantoprazole 40 Mg Tablet) 40 mg PO DAILY [facility] Last Admin: 05/29/21 08:49 Dose: 40 mg Documented by: Saccharomyces Boulardii (Saccharomyces Boulardii 250 Mg Capsule) 250 mg PO BIDWM [facility] Last Admin: 05/29/21 08:50 Dose: 250 mg Documented by: Sodium Chloride (Sodium Chloride Flush 0.9% 10 Ml Syringe) 10 ml IVP PRN PRN PRN Reason: NEEDED PER PROVIDER ORDERS Sodium Chloride (Sodium Chloride Flush 0.9% 10 Ml Syringe) 10 ml IVP 0100,0900,1700 [facility] Last Admin: 05/29/21 08:52 Dose: 10 ml Documented by: Tamsulosin HCl (Tamsulosin 0.4 Mg Capsule) 0.4 mg PO DAILY [facility] Last Admin: 05/29/21 08:50 Dose: 0.4 mg Documented by: Alfuzosin HCl [Alfuzosin HCl ER] 10 mg PO DAILY 04/15/15 Cholecalciferol (Vitamin D3) [Vitamin D3] 2 cap PO DAILY 04/15/15 Isosorbide Mononitrate [Isosorbide Mononitrate ER] 60 mg PO DAILY 04/15/15 Metoprolol Succinate [Toprol Xl] 50 mg PO BID 04/15/15 Omeprazole 2 tab PO DAILY 04/15/15 allopurinoL [Allopurinol] 100 mg PO BID 04/15/15 Atorvastatin Calcium 40 mg PO DAILY 05/26/21 Objective - Vital Signs/Intake & Output Reviewed Vital Signs: Yes Vital Signs: Vital Signs x48h Temp Pulse Pulse Resp BP BP Pulse Ox 05/29/21 12:44 36.5 C 61 20 118/65 98 05/29/21 07:35 36.9 C 58 L 20 118/68 96 05/29/21 07:23 78 20 Intake & Output: Intake & Output 05/26/21 05/27/21 05/28/21 05/29/21 23:59 23:59 23:59 23:59 Intake Total 1000 2580 4431 730 Output Total 20 100 Balance 980 2480 4431 730 - Objective General Appearance: positive: No acute distress, Alert Eyes Bilateral: positive: Normal inspection, Conjunctivae nml ENT: positive: ENT inspection nml Respiratory: positive: No respiratory distress. negative: Wheezes, Rales Cardiovascular: positive: Regular rate & rhythm, No murmur Abdomen: positive: Non-tender, Nml bowel sounds, No distention. negative: Tenderness Skin: positive: Warm, Dry Extremities: positive: Pedal edema (Trace edema.) Neurologic/Psychiatric: negative: Disoriented to person, Disoriented to place - Lab Results Fish Bones: 05/29/21 06:10 05/29/21 06:10 Other Labs: Lab Results x24hrs 05/29/21 05/29/21 Range/Units 06:10 06:10 WBC 6.9 (4.8-10.8) x10^3/uL RBC 3.11 L (4.70-6.10) 10^6/uL Hgb 10.0 L (14.0-18.0) g/dL Hct 32.4 L (42.0-52.0) % MCV 104.2 H (80.0-94.0) fL MCH 32.2 H (27.0-31.0) pg MCHC 30.9 L (32.0-36.0) g/dL RDW 14.0 (12.0-15.0) % Plt Count 149 (130-450) 10^3/uL MPV 9.8 (7.4-11.4) fL Neut # (Auto) 5.2 (1.5-6.6) 10^3/uL Lymph # (Auto) 0.9 L (1.5-3.5) 10^3/uL [place] # (Auto) 0.7 (0.0-1.0) 10^3/uL Eos # (Auto) 0.1 (0.0-0.7) 10^3/uL Baso # (Auto) 0.0 (0.0-0.1) 10^3/uL Absolute Nucleated RBC 0.00 x10^3/uL Nucleated RBC % 0.0 /100WBC Sodium 143 (135-145) mmol/L Potassium 4.1 (3.5-5.0) mmol/L Chloride 107 (101-111) mmol/L Carbon Dioxide 23 (21-32) mmol/L Anion Gap 13.0 (6-13) BUN 42 H (6-20) mg/dL Creatinine 2.5 H (0.6-1.2) mg/dL Estimated GFR (MDRD) 25 L (>89) Glucose 91 (70-100) mg/dL Calcium 8.1 L (8.5-10.3) mg/dL Total Bilirubin 1.1 H (0.2-1.0) mg/dL AST 85 H (10-42) IU/L ALT 61 H (10-60) IU/L Alkaline Phosphatase 92 (42-121) IU/L Total Protein 5.8 L (6.7-8.2) g/dL Albumin 2.5 L (3.2-5.5) g/dL Globulin 3.3 (2.1-4.2) g/dL Albumin/Globulin Ratio 0.8 L (1.0-2.2) ABX Reporting Has patient been on IV antibiotics over the past 48 hours?: Yes Assessment/Plan - Problem List (1) Fever Impression: He has not been afebrile for more than 24 hours. There has been no obvious source of infection except for suspected gastroenteritis. His diarrhea has resolved. I did order a right upper quadrant ultrasound today given his LFTs have been slightly elevated but there is no evidence of cholecystitis and he has no pain in the right upper quadrant. I will discontinue antibiotics today if he remains afebrile he can be discharged home tomorrow. (2) Gastroenteritis Impression: Suspect this was the cause of his dehydration as well as fever. Stool cultures were not obtained as his diarrhea had resolved but given the history, suspect he likely had a foodborne illness as the cause of his diarrhea. We will continue with a diet as tolerated. (3) Elevated LFTs Impression: His LFTs have been increasing although his total bilirubin is improving each day. Right upper quadrant ultrasound today showed some sludge but no obvious evidence of cholecystitis. There is mild ascitic fluid and increased echogeni city of the liver. We will continue to monitor his LFTs but these will need to be monitored on an outpatient basis once discharged. We will continue his atorvastatin for the time being. (4) Chronic kidney disease, stage 4 (severe) Impression: His baseline creatinine is approximately 2.2 and his creatinine is now 2.4. It appears he had mild acute kidney injury from diarrhea. He will continue outpatient follow-up with his primary care physician. (5) Coronary artery disease Impression: Stable. His troponin was only mildly elevated and this was thought to be demand ischemia. We will continue his home medications. (6) BPH (benign prostatic hyperplasia) Impression: Stable. Continue Flomax.
[2021-05-30 06:44] LABS: BASOPHILS % (AUTO) 0.2 %; EOSINOPHILS % (AUTO) 0.1 %; HCT - HEMATOCRIT 37.1 % (42.0-52.0); HGB - HEMOGLOBIN 11.6 g/dL (14.0-18.0); LYMPHOCYTES % (AUTO) 6.5 %; MEAN CORPUSCULAR HGB CONC 31.3 g/dL (32.0-36.0); MEAN CORPUSCULAR VOLUME 102.2 fL (80.0-94.0); MEAN PLATELET VOLUME 9.3 fL (7.4-11.4); MONOCYTES # (AUTO) 1.5 10^3/uL (0.0-1.0); MONOCYTES % (AUTO) 9.5 %; NEUTROPHILS # (AUTO) 12.7 10^3/uL (1.5-6.6); PLT - PLATELET COUNT 186 10^3/uL (130-450); RED BLOOD COUNT 3.63 10^6/uL (4.70-6.10); RED CELL DISTRIBUTION WIDTH 13.8 % (12.0-15.0); WHITE BLOOD COUNT 15.3 x10^3/uL (4.8-10.8)
[2021-05-30 06:55] LABS: ALBUMIN 2.5 g/dL (3.2-5.5); ALBUMIN/GLOBULIN RATIO 0.7 (1.0-2.2); BILIRUBIN,TOTAL 1.1 mg/dL (0.2-1.0); CALCIUM 8.3 mg/dL (8.5-10.3); CREATININE 2.4 mg/dL (0.6-1.2); POTASSIUM 4.4 mmol/L (3.5-5.0); TOTAL PROTEIN 6.2 g/dL (6.7-8.2)
[2021-05-30] MEDS: SODIUM CHLORIDE FLUSH 0.9% 10 ML SYRINGE IVP SCH ×2 (07:23→08:42)
[2021-05-30] MEDS: CHOLECALCIFEROL 25 MCG TABLET PO SCH (08:40)
[2021-05-30] MEDS: ATORVASTATIN 40 MG TABLET PO SCH (08:41)
[2021-05-30] MEDS: SACCHAROMYCES BOULARDII 250 MG CAPSULE PO SCH (08:41)
[2021-05-30] MEDS: PANTOPRAZOLE 40 MG TABLET PO SCH (08:41)
[2021-05-30] MEDS: ISOSORBIDE MONONITRATE ER 30 MG TABLET PO SCH (08:41)
[2021-05-30] MEDS: TAMSULOSIN 0.4 MG CAPSULE PO SCH (08:41)
[2021-05-30] MEDS: METOPROLOL SUCCINATE 50 MG TABLET PO SCH (08:41)
[2021-05-30] MEDS: allopurinoL 100 MG TABLET PO SCH (08:41)
[2021-05-30] MEDS: HEPARIN 5,000 UNIT/ML VIAL SUBQ SCH (08:42)
[2021-05-30 11:20] LABS: BASOPHILS % (AUTO) 0.2 %; EOSINOPHILS % (AUTO) 0.1 %; HGB - HEMOGLOBIN 11.6 g/dL (14.0-18.0); LYMPHOCYTES # (AUTO) 1.2 10^3/uL (1.5-3.5); LYMPHOCYTES % (AUTO) 7.1 %; MEAN CORPUSCULAR HEMOGLOBIN 31.9 pg (27.0-31.0); MEAN CORPUSCULAR HGB CONC 31.4 g/dL (32.0-36.0); MEAN CORPUSCULAR VOLUME 101.6 fL (80.0-94.0); MEAN PLATELET VOLUME 9.4 fL (7.4-11.4); MONOCYTES # (AUTO) 1.5 10^3/uL (0.0-1.0); MONOCYTES % (AUTO) 9.3 %; NEUTROPHILS # (AUTO) 13.3 10^3/uL (1.5-6.6); NEUTROPHILS % (AUTO) 82.1 %; PLT - PLATELET COUNT 206 10^3/uL (130-450); RED BLOOD COUNT 3.64 10^6/uL (4.70-6.10); RED CELL DISTRIBUTION WIDTH 13.9 % (12.0-15.0); WHITE BLOOD COUNT 16.3 x10^3/uL (4.8-10.8)
[2021-05-30] MEDS ORDERED: ASPIRIN CHEW 81 MG TABLET PO SCH (12:00)
[2021-05-30 12:58] VITALS: BP 137/64
--- NOTE | 2021-05-30 14:58 | Discharge Plan ---
Discharge Plan Problem Reviewed?: Yes Disposition: Home, Self Care Condition: Stable Diet: Regular Activity Restrictions: Activity as Tolerated Health Concerns: You were seen in the hospital because of dehydration from diarrhea. We suspect this was likely related to food poisoning. We have not found any obvious evidence of infection. You did have low-grade fevers which we suspect is related to the stomach flu. You are now stable for discharge home Your white blood cell count did increase today but given there is no obvious source of infection, it is not necessary for you to stay here in the hospital. I recommend that your primary care doctor repeat labs in a week. We did an ultrasound of your heart which showed your heart function is fine although part of your heart muscle appears to be weak. It is recommended that you follow-up with your primary care doctor and then a blacktop spreader to discuss the need for a stress test or a cardiac catheterization. Plan of Treatment: There were no changes made to your medications. Please begin taking aspirin given your history of heart disease. Please make sure to drink plenty of fluids. Assessment: The patient expressed understanding of the treatment plan. Additional Instructions or Follow Up instructions: Please follow-up with your primary care physician in 1 week. It is recommended that they check your laboratory to ensure your kidney function is stable and that your white cell count has improved. No Smoking: If you smoke, Please STOP! Call for help. Follow-up with: Gene Mariano MD [Primary Care Provider] - Victor M France MD [Provider Admit Priv/Credential] -
--- NOTE | 2021-05-30 15:10 | DISCHARGE SUMMARY ---
Discharge Summary Admit Date: 05/26/21 Discharge Date: 05/30/21 Discharging Provider: Murtaza Covarrubias Primary Care Provider: Victor M France Code Status: Attempt Resuscitation Condition at Discharge: Stable Discharge Disposition: 01 Home, Self Care - DIAGNOSES Admission Diagnoses: Acute kidney injury Dehydration Elevated troponin Coronary artery disease Hypertension Hyperlipidemia Generalized weakness History of gout BPH Discharge Diagnoses with Status of Each Condition: Fever - resolved. Leukocytosis - ongoing. Gastroenteritis - resolved. Elevated LFTs - stable. CKD, stage IV - stable. Coronary artery disease - stable. BPH - stable. - HPI History of Present Illness: H&P per Dr. Boyd: Patient is a 75-year-old obese male with medical history significant for coronary artery disease status post stent placement 2011, hyperlipidemia, hypertension, GERD, gout who presented to the ED with complaint of generalized weakness and diarrhea. He ate some Dive[employer] bread on Monday which is about 4 days ago. He believes the bread was not properly cooked. He started having diarrhea about every hour on Monday night. This lasted till Monday morning when it stopped. He describes his stool as soft currently. However for the past 2 to 3 days he has been significantly weak and unable to get out of bed. He attempted to do so and fell twice. He did not hit his head or pass out with the falls. However as a result of the falls he decided to come to the emergency department for evaluation. He was noted to have a creatinine of 2.8, magnesium 1.6. He was also very tachycardic with heart rate in the 130s. As a result of his weakness and diarrhea he has not taken his metoprolol for several days now. He denied chest pain, dyspnea, abdominal pain, nausea, vomiting or fever. He reported chills. He was presented for admission for further treatment to include continued IV hydration. - HOSPITAL COURSE Hospital Course: He was admitted for what was initially thought to be acute kidney injury secondary to dehydration from gastroenteritis. He was treated with IV fluids with mild improvement in his creatinine. It was then noted after he obtain out side labs that he has CKD stage IV at baseline and his creatinine was relatively close to baseline. His weakness improved with hydration. He then became febrile and so he was started empirically on Zosyn IV. His diarrhea had resolved and so stool cultures were not obtained. His low-grade fevers resolved and antibiotics were discontinued. He remained afebrile but the following day his white count increased. There has been no obvious source of infection as chest x-ray, urinalysis, blood cultures were negative to date. The patient clinically felt improved. Given his LFTs were mildly elevated, an ultrasound was obtained and although the gallbladder wall was thickened, there was no evidence of cholecystitis. The patient felt well enough to go home and so he was discharged home and asked to follow-up with his primary care physician in 1 week to have repeat labs to ensure his renal function stable and that his white count is improving. He did have an echocardiogram during his hospitalization which showed a preserved ejection fraction. There were some regional wall motion abnormalities but there is no prior echocardiogram to compare to. His troponins were flat and his EKG did not suggest ischemia. He was asked to resume aspirin and to follow-up with his primary care physician and his airplane coverer to consider a stress test on an outpatient basis. - ALLERGIES Allergies/Adverse Reactions: Allergies Allergy/AdvReac Type Severity Reaction Status Date / Time No Known Drug Allergies Allergy Verified 05/26/21 20:07 - MEDICATIONS Home Medications: Ambulatory Orders Medication Instructions Recorded Confirmed Alfuzosin HCl [Alfuzosin HCl ER] 10 mg PO DAILY 04/15/15 05/26/21 Cholecalciferol (Vitamin D3) 2 cap PO DAILY 04/15/15 05/26/21 [Vitamin D3] Isosorbide Mononitrate [Isosorbide 60 mg PO DAILY 04/15/15 05/26/21 Mononitrate ER] Metoprolol Succinate [Toprol Xl] 50 mg PO BID 04/15/15 05/26/21 Omeprazole 2 tab PO DAILY 04/15/15 05/26/21 allopurinoL [Allopurinol] 100 mg PO BID 04/15/15 05/26/21 Atorvastatin Calcium 40 mg PO DAILY 05/26/21 05/26/21 Aspirin Chewable [[place] 81 mg PO DAILY tablet 05/30/21 Aspirin] - PHYSICAL EXAM AT DISCHARGE General Appearance: positive: No acute distress, Alert Eyes Bilateral: positive: Normal inspection, Conjunctivae nml ENT: positive: ENT inspection nml Neck: positive: Nml inspection Respiratory: positive: No respiratory distress, Wheezes (Faint expiratory wheezes.) Cardiovascular: positive: Regular rate & rhythm, No murmur. negative: Tachycardia, Systolic murmur Abdomen: positive: Non-tender, No distention. negative: Tenderness Skin: positive: Warm, Dry Extremities: positive: Pedal edema (Trace edema.) Neurologic/Psychiatric: negative: Disoriented to person, Disoriented to place Physical Exam Other/Comments: Vital Signs - 24 hr 05/29/21 05/29/21 05/29/21 19:30 20:43 22:19 Temperature 37.2 C Heart Rate 80 Heart Rate [ 95 Brachial] Respiratory 20 42 H 42 H Rate Blood Pressure [Left Brachial artery] Blood Pressure 147/70 H [Right Brachial artery] O2 Saturation 88 L 98 05/30/21 05/30/21 05/30/21 00:56 05:29 07:32 Temperature 36.9 C 36.5 C 36.5 C Heart Rate Heart Rate [ 91 72 78 Brachial] Respiratory 34 H 33 H 34 H Rate Blood Pressure 139/77 H 139/64 H 119/66 [Left Brachial artery] Blood Pressure [Right Brachial artery] O2 Saturation 96 95 96 05/30/21 12:57 Temperature 36.6 C Heart Rate Heart Rate [ 76 Brachial] Respiratory 30 H Rate Blood Pressure [Left Brachial artery] Blood Pressure 137/64 H [Right Brachial artery] O2 Saturation 96 Oxygen O2 Source Room air - LABS Result Diagrams: 05/30/21 11:11 05/30/21 06:36 - DIAGNOSTIC IMAGING Diagnostic Imaging Results: Final report reviewed - FOLLOW UP Follow Up: He was asked to follow-up with his primary care physician in 1 week and to have a CBC drawn to ensure that his white count is improving. He was also asked to follow-up with a airplane coverer given his echocardiogram did show wall motion abnormalities. - TIME SPENT Time Spent in Discharge (Minutes): 33
--- NOTE | 2021-05-30 15:28 | XRAY Report ---
PROCEDURE: Chest 1 View X-Ray INDICATIONS: Dyspnea. Hypoxia. TECHNIQUE: One view of the chest was acquired. COMPARISON: 05/27/2021, 05/26/2021. Correlation is also made with chest CT, 05/28/2021 FINDINGS: Surgical changes and devices: None. Lungs and pleura: Low lung volumes can be seen, causing a crowded appearance to the lung markings. T here is a small right-sided pleural effusion. Streaky opacities can be seen at the lung bases. An az ygos lobe is incidentally noted. Mediastinum: Mediastinal contours appear normal. Heart size is normal. Bones and chest wall: No suspicious bony lesions. Overlying soft tissues appear unremarkable. IMPRESSION: Small right-sided pleural effusion, with likely atelectasis at the lung bases. Reviewed by: Carlos Infante MD on 05/30/2021 2:27 PM [place] Approved by: Carlos Infante MD on 05/30/2021 2:27 PM [facility] Station ID: [id number]
== END 2021-05-30 15:49 | disposition home or self-care (01) | DRG 683 ==
LOC: EDUNIT# → SUPCPDRO 20:00 → ED 20:00 → MS2 23:17 → ED 23:58 → OBSVTOIN 05-27 10:53
PROVIDERS: ADMIT Internal Medicine; ATTEND Internal Medicine
DX: N17.9 Acute kidney failure, unspecified (principal); I47.1 Supraventricular tachycardia; I12.9 Hypertensive chronic kidney disease with stage 1 through stage 4 chronic kidney disease, or unspecified chronic kidney disease; I10 Essential (primary) hypertension; A05.9 Bacterial foodborne intoxication, unspecified; N18.4 Chronic kidney disease, stage 4 (severe); E86.0 Dehydration; R00.0 Tachycardia, unspecified; R06.2 Wheezing; R19.7 Diarrhea, unspecified; R77.8 Other specified abnormalities of plasma proteins; R53.1 Weakness; J43.9 Emphysema, unspecified; I25.10 Atherosclerotic heart disease of native coronary artery without angina pectoris; E78.5 Hyperlipidemia, unspecified; R79.89 Other specified abnormal findings of blood chemistry; K21.9 Gastro-esophageal reflux disease without esophagitis; E66.9 Obesity, unspecified; Z68.35 Body mass index [BMI] 35.0-35.9, adult; M10.9 Gout, unspecified; N40.0 Benign prostatic hyperplasia without lower urinary tract symptoms; Z74.09 Other reduced mobility; H54.7 Unspecified visual loss; Z20.822 Contact with and (suspected) exposure to COVID-19; Z79.899 Other long term (current) drug therapy; Z87.891 Personal history of nicotine dependence; Z95.5 Presence of coronary angioplasty implant and graft; I25.2 Old myocardial infarction; Z91.81 History of falling
CPT/HCPCS: 36415; 71045; 71250; 76700; 80048; 80053; 81001; 81599; 83605; 83735; 83880; 84443; 84484; 85025; 87040; 87631; 93005; 93306; 94640; 96365; 96366; 96367; 96375; 97110; 97116; 97161; 97165; 99284; 99285; A9270; G0378; G0480; J7626; 0202U; 80320; 81003; 87045; 87046; 87086

== ENCOUNTER 2021-11-17 23:59 | Outpatient (CLI) | payer MEDICARE, OTHER | END 2021-11-18 | disposition critical access hospital (66) | LOC: EMS 23:59 | DX: R53.1 Weakness (principal); R06.02 Shortness of breath; R35.0 Frequency of micturition | CPT/HCPCS: A0425; A0427 ==

== ENCOUNTER 2021-11-18 00:17 | Inpatient (IN) | payer MEDICARE, OTHER ==
[2021-11-18] MEDS ORDERED: SODIUM CHLORIDE 0.9% 500 ML IV STA (00:51)
--- NOTE | 2021-11-18 00:59 | ED Physician Documentation ---
History of Present Illness - Stated complaint Stated Complaint: GLF/WEAKNESS - Chief complaint Chief Complaint: Neuro - History obtained from History obtained from: Patient - Additonal information Additional information: Patient is a 76-year-old male with a history significant for hypertension, hyperlipidemia, coronary artery disease status post stent presenting for evaluation of fall and generalized weakness. At 8 PM patient was in his recliner and believes he dozed off when he slid out of the recliner and onto the floor. He does not believe he struck his head but did have an episode of emesis after falling. He was not able to get up but was able to reach a phone to call for help after 2 hours. Patient reports going to the [employer] earlier todayAnd was otherwise feeling okay. He does report having a chronic cough But it has been more productive recently. Per EMS they believed he had a low-grade fever of 100.3 and thought his oxygen saturations were low and put him on 2 L nasal cannula. Patient denies known fever, chest pain, trouble breathing, abdominal pain, diarrhea, dysuria.Patient denies any heart failure history. Review of Systems Constitutional: denies: Fever Nose: denies: Congestion Cardiac: denies: Chest pain / pressure, Palpitations Respiratory: reports: Cough. denies: Dyspnea GI: reports: Vomiting (X1). denies: Abdominal Pain, Diarrhea : denies: Dysuria Musculoskeletal: denies: Back pain Neurologic: reports: Generalized weakness. denies: Headache PD PAST MEDICAL HISTORY - Past Medical History Past Medical History: Yes Cardiovascular: Hypertension, High cholesterol, Coronary artery disease, [place] Respiratory: Shortness of breath Neuro: None Endocrine/Autoimmune: None GI: GERD : Kidney stones HEENT: Chronic vision loss, Chronic sinusitis Psych: None Musculoskeletal: None Derm: None - Past Surgical History Past Surgical History: Yes Ortho: Other Cardiovascular: Cardiac catheterization, Other HEENT: Cataracts, Tonsil/Adenoidectomy - Present Medications Home Medications: Ambulatory Orders Medication Instructions Recorded Confirmed Alfuzosin HCl [Alfuzosin HCl ER] 10 mg PO DAILY 04/15/15 11/18/21 Cholecalciferol (Vitamin D3) 2 cap PO DAILY 04/15/15 11/18/21 [Vitamin D3] Isosorbide Mononitrate [Isosorbide 60 mg PO DAILY 04/15/15 11/18/21 Mononitrate ER] Metoprolol Succinate [Toprol Xl] 50 mg PO BID 04/15/15 11/18/21 Omeprazole 2 tab PO DAILY 04/15/15 11/18/21 allopurinoL [Allopurinol] 100 mg PO BID 04/15/15 11/18/21 Atorvastatin Calcium 40 mg PO DAILY 05/26/21 11/18/21 Aspirin Chewable [[place] 81 mg PO DAILY tablet 05/30/21 11/18/21 Aspirin] - Allergies Allergies/Adverse Reactions: Allergies Allergy/AdvReac Type Severity Reaction Status Date / Time No Known Drug Allergies Allergy Verified 11/18/21 00:26 - Social History Does the pt smoke?: No Smoking Status: Never smoker Does the pt drink ETOH?: No Does the pt have substance abuse?: No - Immunizations Immunizations are current?: Yes - POLST Patient has POLST: No POLST Status: Full Code PD ED PE NORMAL - General General: Alert and oriented X 3, No acute distress, Other (Chronically ill- appearing) - HEENT HEENT: Atraumatic, PERRL, EOMI. No: Moist mucous membranes (Dry mucous membranes) - Neck Neck: Supple, no meningeal sign, C-Spine cleared by NEXUS criteria - Cardiac Cardiac: RRR, No murmur, Strong equal pulses - Respiratory Respiratory: Other (Tachypneic; Diminished breath sounds, Rhonchi on the left). No: No respiratory distress, Clear bilaterally - Abdomen Abdomen: Normal bowel sounds, Soft, Non tender - Derm Derm: Normal color - Extremities Extremities: No deformity, Other (Nonpitting edema to all extremities) - Neuro Neuro: Alert and oriented X 3, automation developer 2-12 intact, No motor deficit, Normal speech Eye Opening: Spontaneous Motor: Obeys Commands Verbal: Oriented GCS Score: 15 - Psych Psych: Normal mood, Normal affect Results - Vitals Vitals: Vital Signs - 24 hr 11/18/21 11/18/21 11/18/21 00:22 01:00 01:46 Temperature 37.3 C Heart Rate 98 89 89 Respiratory 20 35 H 35 H Rate Blood Pressure 122/62 O2 Saturation 95 91 L 87 L 11/18/21 11/18/21 11/18/21 02:00 04:00 05:00 Temperature Heart Rate 88 81 77 Respiratory 33 H 28 H 29 H Rate Blood Pressure 125/63 108/53 L 109/54 L O2 Saturation 100 98 96 Oxygen O2 Source Nasal cannula Oxygen Flow Rate 2 - EKG (time done) 0043 Rate: Rate (enter#) (95) Rhythm: NSR Intervals: RBBB Compare to prior EKG: Unchanged from prior EKG (Similar to previous May 2021) - Labs Labs: Microbiology 11/18/21 01:31 Blood Culture (PCR) - Final Blood - Left Arm 11/18/21 01:31 Blood Culture - Preliminary Blood - Left Arm Laboratory Tests 11/18/21 11/18/21 11/18/21 00:35 01:00 01:00 WBC 5.3 RBC 3.09 L Hgb 9.3 L Hct 29.6 L MCV 95.8 H MCH 30.1 MCHC 31.4 L RDW 13.9 Plt Count 92 L MPV 9.4 Neut # (Auto) 4.2 Lymph # (Auto) 0.3 L [place] # (Auto) 0.5 Eos # (Auto) 0.1 Baso # (Auto) 0.0 Absolute Nucleated RBC 0.00 Nucleated RBC % 0.0 Sodium 139 Potassium 2.6 L Chloride 100 L Carbon Dioxide 28 Anion Gap 11.0 BUN 28 H Creatinine 2.3 H Estimated GFR (MDRD) 28 L Glucose 91 Lactic Acid Calcium 7.8 L Magnesium 1.0 L* Total Bilirubin 2.5 H AST 19 ALT 13 Alkaline Phosphatase 98 Total Creatine Kinase 157 Troponin I High Sens B-Natriuretic Peptide Total Protein 5.8 L Albumin 3.0 L Globulin 2.8 Albumin/Globulin Ratio 1.1 Lipase 23 SARS-CoV-2 (PCR) NOT DETECTED 11/18/21 11/18/21 11/18/21 01:00 01:00 01:00 WBC RBC Hgb Hct MCV MCH MCHC RDW Plt Count MPV Neut # (Auto) Lymph # (Auto) [place] # (Auto) Eos # (Auto) Baso # (Auto) Absolute Nucleated RBC Nucleated RBC % Sodium Potassium Chloride Carbon Dioxide Anion Gap BUN Creatinine Estimated GFR (MDRD) Glucose Lactic Acid 1.5 Calcium Magnesium Total Bilirubin AST ALT Alkaline Phosphatase Total Creatine Kinase Troponin I High Sens 77.5 H* B-Natriuretic Peptide 1277 H Total Protein Albumin Globulin Albumin/Globulin Ratio Lipase SARS-CoV-2 (PCR) 11/18/21 03:02 WBC RBC Hgb Hct MCV MCH MCHC RDW Plt Count MPV Neut # (Auto) Lymph # (Auto) [place] # (Auto) Eos # (Auto) Baso # (Auto) Absolute Nucleated RBC Nucleated RBC % Sodium Potassium Chloride Carbon Dioxide Anion Gap BUN Creatinine Estimated GFR (MDRD) Glucose Lactic Acid Calcium Magnesium Total Bilirubin AST ALT Alkaline Phosphatase Total Creatine Kinase Troponin I High Sens 88.3 H* B-Natriuretic Peptide Total Protein Albumin Globulin Albumin/Globulin Ratio Lipase SARS-CoV-2 (PCR) PD MEDICAL DECISION MAKING - ED course ED course: Patient presenting for evaluation after a ground-level fall and generalized weakness. He was noted to be short of breath and tachypneic. During his evaluation he did have desaturation requiring supplemental oxygen. Chest x-ray demonstrates a left lower lobe infiltrate. There are also some signs of fluid overload but patient also endorses having a worsening productive cough recently Suggestive of infectious etiology. We will start treatment for community- acquired pneumonia. As he is needing oxygen he would require admission. Additionally noted that patient has significantly low potassium and magnesium which replacements were ordered. Initial troponin is elevated but repeat is essentially unchanged. Departure - Departure Disposition: [facility] DC/Xfer Clinical Impression: Acute respiratory failure with hypoxia, Hypomagnesemia, Hypokalemia, Generalized weakness, Elevated troponin CAP (community acquired pneumonia) Qualifiers: Laterality: left Lung location: lower lobe of lung Qualified Code(s): J18.9 - Pneumonia, unspecified organism Condition: Stable Discharge Date/Time: 11/18/21 07:49
[2021-11-18 01:09] LABS: BASOPHILS % (AUTO) 0.4 %; EOSINOPHILS # (AUTO) 0.1 10^3/uL (0.0-0.7); EOSINOPHILS % (AUTO) 2.3 %; HCT - HEMATOCRIT 29.6 % (42.0-52.0); HGB - HEMOGLOBIN 9.3 g/dL (14.0-18.0); LYMPHOCYTES # (AUTO) 0.3 10^3/uL (1.5-3.5); LYMPHOCYTES % (AUTO) 6.1 %; MEAN CORPUSCULAR HEMOGLOBIN 30.1 pg (27.0-31.0); MEAN CORPUSCULAR HGB CONC 31.4 g/dL (32.0-36.0); MEAN CORPUSCULAR VOLUME 95.8 fL (80.0-94.0); MEAN PLATELET VOLUME 9.4 fL (7.4-11.4); MONOCYTES # (AUTO) 0.5 10^3/uL (0.0-1.0); MONOCYTES % (AUTO) 9.9 %; NEUTROPHILS # (AUTO) 4.2 10^3/uL (1.5-6.6); NEUTROPHILS % (AUTO) 80.3 %; PLT - PLATELET COUNT 92 10^3/uL (130-450); RED BLOOD COUNT 3.09 10^6/uL (4.70-6.10); RED CELL DISTRIBUTION WIDTH 13.9 % (12.0-15.0); WHITE BLOOD COUNT 5.3 x10^3/uL (4.8-10.8)
[2021-11-18 01:23] LABS: ALBUMIN/GLOBULIN RATIO 1.1 (1.0-2.2); BILIRUBIN,TOTAL 2.5 mg/dL (0.2-1.0); CALCIUM 7.8 mg/dL (8.5-10.3); CREATININE 2.3 mg/dL (0.6-1.2); POTASSIUM 2.6 mmol/L (3.5-5.0); TOTAL PROTEIN 5.8 g/dL (6.7-8.2)
[2021-11-18] MEDS ORDERED: MAGNESIUM SULFATE 2 GRAM 2 GM/50 ML BAG IV ONE (01:24)
[2021-11-18] MEDS ORDERED: POTASSIUM CHLORIDE 20 MEQ TABLET PO STA (01:28)
[2021-11-18] MEDS ORDERED: POTASSIUM CHLOR 10 MEQ/100 ML 10 MEQ/100 ML BAG IV STA (01:28)
--- NOTE | 2021-11-18 01:40 | XRAY Report ---
PROCEDURE: Chest 1 View X-Ray INDICATIONS: weak TECHNIQUE: One view of the chest was acquired. COMPARISON: 05/30/2021 FINDINGS: Surgical changes and devices: None. Lungs and pleura: Dense opacity in the retrocardiac region, a portion of which is chronic. Mild centr al vascular prominence and cephalization of central vessels. Mediastinum: Mediastinal contours appear normal. Heart size is moderately enlarged. Bones and chest wall: No suspicious bony lesions. Overlying soft tissues appear unremarkable. IMPRESSION: 1. Cephalization and prominence of central vasculature suggesting volume overload or CHF. 2. Dense left lung base opacity with a differential diagnosis of atelectasis, effusion, or pneumonia. Reviewed by: Carol Antoine MD on 11/18/2021 1:38 AM PDT Approved by: Carol Antoine MD on 11/18/2021 1:38 AM PDT Station ID: [id number]
--- NOTE | 2021-11-18 01:43 | CT Report ---
PROCEDURE: HEAD WO INDICATIONS: weakness/fall TECHNIQUE: Noncontrast 4.5 mm thick angled axial sections acquired from the foramen magnum to the vertex. For r adiation dose reduction, the following was used: automated exposure control, adjustment of mA and/or kV according to patient size. COMPARISON: None. FINDINGS: Image quality: Excellent. CSF spaces: Basal cisterns are patent. No extra-axial fluid collections. Ventricles are normal in size and shape. Brain: No midline shift. No intracranial masses or hemorrhage. Vasquez-white matter interface is norm al. Skull and face: Calvarium and visualized facial bones are intact, without suspicious lesions. Sinuses: Visualized sinuses and mastoids are clear. IMPRESSION: No CT evidence of acute process. Reviewed by: Carol Antoine MD on 11/18/2021 1:41 AM PDT Approved by: Carol Antoine MD on 11/18/2021 1:41 AM PDT Station ID: [id number]
[2021-11-18] MEDS ORDERED: AZITHROMYCIN INJ 500 MG in SODIUM CHLORIDE 0.9% 250 ML IV STA (01:48)
[2021-11-18] MEDS ORDERED: cefTRIAXone 1 GM VIAL IVP STA (01:48)
[2021-11-18] MEDS ORDERED: oxyCODONE 5 MG TABLET PO PRN (06:35)
[2021-11-18] MEDS ORDERED: ONDANSETRON 4 MG/2 ML VIAL IVP PRN (06:35)
[2021-11-18] MEDS ORDERED: SODIUM CHLORIDE FLUSH 0.9% 10 ML SYRINGE IVP PRN (06:35)
[2021-11-18] MEDS ORDERED: PROCHLORPERAZINE 10 MG/2 ML VIAL IVP PRN (06:35)
[2021-11-18] MEDS ORDERED: ONDANSETRON ODT 4 MG TABLET TL PRN (06:35)
[2021-11-18] MEDS ORDERED: ACETAMINOPHEN 325 MG TABLET PO PRN (06:35)
--- NOTE | 2021-11-18 08:11 | HISTORY & PHYSICAL EXAMINATION ---
Chief Complaint - Chief Complaint Chief Complaint: weakness for days w fall at home History of Present Illness - Admitted From Admitted From:: home via EMS - History Obtained From Records Reviewed: [facility] History obtained from: ER MD and patient Exam Limitations: none - History of Present Illness HPI Comment/Other: This is a pleasant 76-year-old white male who has a history of coronary artery disease with a stent placed in 2011, hypertension, GERD, hyperlipidemia and gout as well as benign prostatic hypertrophy. He is chief complaint is generalized weakness after sliding out of a chair and landing on the floor and being unable to get up. He has been weak and tired for months. He had been hospitalized for diarrhea that he attributes to food poisoning last May 2021. He was hospitalized here. He said he was in the hospital for 3 days and ever since then he has been so weak and tired with dyspnea on exertion. He has daily clear phlegm production. Daily edema. But his edema has actually improved over the last few weeks. He bought himself a foot/leg sheeting puller 2 weeks ago and has been using it faithfully every morning. Cleans his own house, does his own laundry. Drives a car. But is slowed down significantly over the last 2 years during COVID. He pushes through and as long as he does it slowly, he can walk as much as he wants to. What limits him his shortness of breath. In acknowledging his weakness and fatigue and dyspnea on exertion he states that he has been asking for referrals for cardiology or pulmonology for quite some time now. Its been over a year. He has been told that "he is on the list" to get to see specialist but has never had an appointment. No change in cough. denies fever or chills. He does have a history of emphysema and chronic shortness of breath. When I ask why he wants to see specialist, he states that he is just really worried about his shortness of breath. He acknowledges that he has emphysema. He is an ex- smoker. But he just feels that something is going on. His edurance capacity is sharply limited but he pushes through. He still golfs. He drives a golf cart, pulls out the golf clubs from the bag which stays in the cart, walks to the ball, and is able to swing. But his energy is not there. His main fear is that he is progressing with his coronary artery disease and that it is going unchecked. When he had a stent done, he was told that he still has some partial blockages and he worries that they are getting worse. He has not been told that he has CHF. His other problem that is been bothering him is his right knee pain. Is in the medial compartment. He valiantly continues to do his exercises, golfing, going to the [employer], but that right knee hurts. No effusions. No trauma. Hurts with weightbearing and is starting to hurt at rest. He goes to the [employer] about 3 or 4 times a week. Had gone there yesterday as usual. He did not feel that he when he was any weaker than he usually is. Cough is the same. Phlegm production was the same. Edema had improved. He denies any chest pain, palpitations. No arm pain, nausea, diaphoresis. He sat down in his recliner and fell asleep. When he got up from his recliner he had no strength to be able to get up. He lay on the floor for a while until he was finally able to make it to a phone to call EMS. He did not have any blow to the head. He is not on any anticoagulation. Blood pressure was 122/62. Temperature was 37.3. Respirations were 20 but quickly increased to about 35. He was 95% on room air initially at rest. But then dropped to 91 and even 87% on room air within 45 minutes. He then required 2 L nasal cannula to maintain his O2 sats at 100%. On examination in the ER, he was alert and oriented. He had a regular rate and rhythm. He was tachypneic, diminished breath sounds diffusely, rhonchi left side. But no use of accessory muscles and was otherwise clear on his breath sounds. White cell count was 5.3. BUN 28, creatinine newly elevated at 2.3. Lactic acid normal. Magnesium 1.0. Troponin was initially 77.5, and secondary follow-up was 88.3. BNP is elevated at 1277. The emergency room physician feels that even though he may have indications of congestive heart failure by that BNP, she truly feels that his main problem is pneumonia because his chest x-ray shows a left lower lung opacity. Radiology does state that there is cephalization and prominence of central vascular suggesting volume overload or CHF. We are now being asked to place him in inpatient status with the hospitalist service. History - Past Medical History Cardiovascular: reports: Hypertension, High cholesterol, Coronary artery disease, [place] Respiratory: reports: COPD, Shortness of breath Neuro: reports: None Endocrine/Autoimmune: reports: None GI: reports: GERD : reports: Benign prostate hypertrophy, Kidney stones HEENT: reports: Chronic vision loss, Chronic sinusitis Psych: reports: None Musculoskeletal: reports: Osteoarthritis Derm: reports: None MRSA Hx?: No - Past Surgical History Ortho: reports: Other Cardiovascular: reports: Cardiac catheterization, Other HEENT: reports: Cataracts, Tonsil/Adenoidectomy - Family & Social History Family History Comment/Other: Mom and dad both in their 90s of old age. He regarded them is come pleat a healthy. He is surprised about that because they grew up in the [facility] and there is been lots of reports of cancer and side effects of the nuclear reactor there. One brother from stomach cancer at 55. One brother is alive and healthy. One sister is alive and healthy. No children Living arrangement: At home Living Situation: Alone Social History Notes: He lives alone in his own home. in 2016. They had no children. He quit smoking in 1983. He used to smoke 2 packs a day for 40 years. He denies alcohol or recreational substance use. 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 - Substance History Use: Uses substance without health or social issues: NONE Abuse: Recurrent use of substance despite neg consequences: NONE Dependence: Experiences withdrawal or developed tolerances: NONE - POLST Patient has POLST: No POLST Status: Full Code Meds/Allgy - Home Medications Home Medications: Ambulatory Orders Medication Instructions Recorded Confirmed Alfuzosin HCl [Alfuzosin HCl ER] 10 mg PO DAILY 04/15/15 11/18/21 Cholecalciferol (Vitamin D3) 2 cap PO DAILY 04/15/15 11/18/21 [Vitamin D3] Isosorbide Mononitrate [Isosorbide 60 mg PO DAILY 04/15/15 11/18/21 Mononitrate ER] Metoprolol Succinate [Toprol Xl] 50 mg PO BID 04/15/15 11/18/21 Omeprazole 2 tab PO DAILY 04/15/15 11/18/21 allopurinoL [Allopurinol] 100 mg PO BID 04/15/15 11/18/21 Atorvastatin Calcium 40 mg PO DAILY 05/26/21 11/18/21 Aspirin Chewable [[place] 81 mg PO DAILY tablet 05/30/21 11/18/21 Aspirin] - Allergies Allergies/Adverse Reactions: Allergies Allergy/AdvReac Type Severity Reaction Status Date / Time No Known Drug Allergies Allergy Verified 11/18/21 00:26 Review of Systems - Constitutional Constitutional: reports: Fatigue, Malaise, Weakness. denies: Fever, Chills, Poor appetite, Diaphoresis, Night sweats, Weight gain, Weight loss - Eyes Eyes: reports: Vision loss (as he has aged). denies: Pain, Irritation - Ears, Nose & Throat Ears, Nose & Throat: reports: Hearing loss, Nasal discharge, Nasal obstruction, Nasal congestion, Postnasal drainage. denies: Ear pain, Hearing aids, Tinnitus, Vertigo, Nasal pain, Nosebleeds, Dentures, Sore throat, Hoarseness - Cardiovascular Cariovascular: reports: Edema, Exertional dyspnea, Decr. exercise tolerance. denies: Irregular heart rate, Palpitations, Chest pain - Gastrointestinal Gastrointestinal: denies: Abdominal pain, Abdominal distention, Constipation, Diarrhea, Change in bowel habits - Genitourinary Genitourinary: reports: Dysuria (in the last week, hurts as he finishes urination), Frequency, Urgency, Nocturia. denies: Hematuria, Incontinence, Flank pain, Urethral discharge - Musculoskeletal Musculoskeletal: reports: Stiffness (diffuse and stable, ""I'm getting old"), Muscle weakness (generalized and nonfocal), Joint pain (right knee). denies: Muscle pain, Back pain, Muscle aches, Limited range of motion, Joint swelling - Integumentary Integumentary: reports: Pruritis (legs just itch and he will scratch too much a nd give himself abrasions). denies: Rash, Lesions, Dryness, Lumps, Acne, Pigment changes - Neurological Neurological: reports: General weakness, Memory problems (starting in the last few months. "I'm down to 80%" but still pays bills on time, and hasn't gotten lost). denies: Focal weakness, Headache, Dizziness, Seizures, Incoordination, Slurred speech - Psychiatric Psychiatric: denies: Depression, Anxiety, Suicidal - Endocrine Endocrine: reports: Intolerance to cold (heat house to 70s regularly). denies: Polyuria, Polydypsia, Polyphagia - Hematologic/Lymphatic Hematologic/Lymphatic: denies: Anemia, Bruising, Petechiae Prior Level of Functionality: Drives a car, does not use a cane or walker. Still able to do his activities of daily living. But feels that he has slowly been slowing down with a sharp cu rtailment since his hospitalization in May. Hires of friend to come clean his house once a week. She also does his grocery shopping for him. He still goes to the [employer] on his own 3-4 times a week over insulinomas can see no. Meets up with his [place] friends to 3 times a week for dinner. Exam - Vital Signs Reviewed Vital Signs: Yes Vital Signs: Vital Signs x48h Temp Pulse Pulse Resp BP BP Pulse Ox 11/18/21 07:55 36.3 C L 74 18 131/65 H 97 11/18/21 07:00 72 19 119/64 94 11/18/21 05:00 77 29 H 109/54 L 96 11/18/21 04:00 81 28 H 108/53 L 98 11/18/21 02:00 88 33 H 125/63 100 11/18/21 01:46 89 35 H 87 L 11/18/21 01:00 89 35 H 91 L 11/18/21 00:22 37.3 C 98 20 122/62 95 - Physical Exam General Appearance: positive: No acute distress (In the emergency room he says he was pretty short of breath and panting. Right now he is comfortable, sitting up in a chair and able to complete full sentences for me.), Other (Short statured moderately overweight elderly gentleman who looks stated age, and his overall appearance is that of a sallow/horton skin tone. He does look ill) Eyes Bilateral: positive: PERRL, EOMI ENT: positive: Dry mucous membranes, Other (To voice, back of his throat shows cobblestoning from postnasal drip. But no erythema or exudate. bad teeth with white film on many, gingivitis, caries.) Neck: positive: No JVD, Lymphadenopathy (R) (Shotty), Lymphadenopathy (L) (Shotty). negative: Carotid bruit Respiratory: positive: Chest non-tender, No respiratory distress, Rhonchi, Other (He also has audible rhonchi without the stethoscope. When he coughs he brings up clear thin phlegm.) Cardiovascular: positive: Regular rate & rhythm, Systolic murmur. negative: Gallop/S4, Friction rub Peripheral Pulses: positive: 1+ Abdomen: positive: Non-tender, No organomegaly, Nml bowel sounds, No distention, Other (Large, protuberant, obese pannus) Skin: positive: Warm, Dry, Pallor, Other (Right anterior palma has areas of abrasions where he has been scratching his legs and giving himself some scarring.No cellulitis. Skin is starting to wrinkle where he tells me that his edema has been improving over the last few weeks) Extremities: positive: Full ROM, Pedal edema Neurologic/Psychiatric: positive: Oriented x3, CN's nml (2-12), Motor nml, Sensation nml, Weakness (Subjective. Strength testing is normal on physical exam. He is able to stand on his own. He just says that his legs just go out from underneath him now but not evident today) Conclusion/Plan - Problem List (1) Pneumonia involving left lung Conclusion/Plan: Not presenting as significant infection but ER feels this is his primary diag nosis. He denies fever, chills, change in phlegm production. WBC normal. His main complaint is generalized weakness. There is no fever, chills. Nevertheless there is objective findings of pneumonia and he will be treated with Rocephin and azithromycin. Qualifiers: Pneumonia type: due to unspecified organism Lung location: lower lobe of lung Qualified Code(s): J18.9 - Pneumonia, unspecified organism (2) Shortness of breath Conclusion/Plan: He has history of emphysema and is an ex-smoker. Smoked up to 2 packs/day. This could be the cause of his shortness of breath with worsening emphysema. In the outpatient setting he is definitely can need referral to pulmonology with pulmonary function studies and there could be some of the "specialist" that he is "in line" to see. But he also may have new congestive heart failure. He has edema, crackles, no JVD. Chest x-ray confirms cephalization and a congestive heart failure pattern. Plan: Echocardiogram in the outpatient setting when he can get it. Lasix 1 dose now duoneb steroids x 3 doses IV start ANGEL (3) Dehydration Conclusion/Plan: He has chronic kidney disease. Creatinine varies between 2.3-2.8 consistently during his last stay with us and today. There is some element of dehydration but there is also meds he is on that could cause this. Will have to balance IVF with diuresis in the face of possible both CHF and CKD/ALICE. (4) Fall at home Conclusion/Plan: It is a mechanical fall. There is no syncope. He does not have any history of aortic stenosis. No history of arrhythmia. I will take this at face value that it was a simple episode of weakness caused him to go to the floor and then have to lay down. CT of head is negative. Qualifiers: Encounter type: initial encounter Qualified Code(s): W19.XXXA - Unspecified fall, initial encounter; Y92.009 - Unspecified place in unspecified non- institutional (private) residence as the place of occurrence of the external cause (5) Generalized weakness Conclusion/Plan: While he is being ostensibly admitted for pneumonia, and that is our concern, his concern is his generalized weakness. It is nonspecific. But leading to decreased endurance, increasing shortness of breath. His history is indicative of possible worsening coronary artery disease, and anemia that is macrocytic in a person who is not an alcoholic, elevated liver enzymes indicating possible liver disease/passive congestion/cirrhosis, new congestive heart failure, worsening kidney function in a patient who takes allopurinol and has BPH. I will be addressing all of these problems individually. He will be getting a stress test, but I cannot order echocardiogram since is not available here. I am looking for worsening coronary artery disease and new congestive heart failure diagnosis. He is macrocytic. Does he have B12 deficiency? Is he an alcoholic but he denies that? Could he had hepatitis? So I will be ordering hepatitis panel and liver enzyme work-up and liver US. He has new worsening kidney function. Does he have lupus induced disease from allopurinol? We will check KARISHMA, renal ultrasound. (6) Hypokalemia Conclusion/Plan: supplemnt and recheck (7) Hypomagnesemia Conclusion/Plan: supplement and recheck. (8) BPH (benign prostatic hyperplasia) Conclusion/Plan: check PSA, check renal US. Start flomax. Qualifiers: Lower urinary tract symptom presence: symptoms present (9) Hx of gout Conclusion/Plan: reduce allopurinol dose. I may skip it while he is here. (10) Dysuria Conclusion/Plan: check UA. (11) Elevated liver enzymes Conclusion/Plan: he is stoutly maintaining that he is NOT a drinker so he denies alcoholism as an issue. He may have right sided fialure (12) Macrocytic anemia Conclusion/Plan: DD: alcohol abuse but he denies, hypothyroid-check TSH, myelodysplastic syndrome-will need smear or bone marrow down the road, B12 def-check anemia panel. - Lab Results Lab results reviewed: Yes Fish Bones: 11/18/21 01:00 11/18/21 01:00 - Diagnostic Imaging Results Diagnostic Imaging Results: positive: Final report reviewed - EKG Results EKG Interpreted Independently: No Core Measures - Anticipated LOS I expect patient to be DC'd or transferred within 96 hours.: Yes - DVT/VTE - Prophylaxis VTE/DVT Device ordered at admit?: Yes
[2021-11-18] MEDS: SODIUM CHLORIDE 0.9% 1,000 ML IV SCH ×2 (08:29→20:43)
[2021-11-18] MEDS: SODIUM CHLORIDE FLUSH 0.9% 10 ML SYRINGE IVP SCH ×3 (08:29→23:42)
[2021-11-18] MEDS ORDERED: IPRATROPIUM/ALBUTEROL 3 ML NEB INH PRN (08:52)
[2021-11-18] MEDS ORDERED: FUROSEMIDE 20 MG/2 ML VIAL IVP STA (08:54)
[2021-11-18] MEDS ORDERED: ENOXAPARIN 40 MG/0.4 ML SYRINGE SUBQ SCH (09:00)
[2021-11-18] MEDS: lisinopriL 5 MG TABLET PO SCH (10:52)
[2021-11-18 10:53] LABS: ABSOLUTE RETICS # AUTO 0.075 10^6/uL (0.020-0.110); RED BLOOD COUNT 3.08 10^6/uL (4.70-6.10); RETICULOCYTE COUNT % (AUTO) 2.42 % (0.5-2.3)
[2021-11-18 11:18] LABS: % IRON SATURATION 5 % (20-50); IRON 9 ug/dL (45-182); TOTAL IRON BINDING CAPACITY 176 ug/dL (250-450); TRANSFERRIN 126 mg/dL (180-329)
[2021-11-18 11:21] LABS: BILIRUBIN,URINE NEGATIVE (NEGATIVE); GLUCOSE, URINE (UA) NEGATIVE (NEGATIVE); KETONES,URINE (UA) NEGATIVE (NEGATIVE); LEUKOCYTE ESTERASE, URINE SMALL (NEGATIVE); NITRITE,URINE POSITIVE (NEGATIVE); OCCULT BLOOD,URINE LARGE (NEGATIVE); PROTEIN,URINE 100 mg/dL (NEGATIVE); UROBILINOGEN,URINE 0.2 (NORMAL) E.U./dL (NORMAL)
[2021-11-18 11:23] LABS: CLARITY,URINE CLOUDY (CLEAR)
[2021-11-18 11:29] LABS: FERRITIN 112.9 ng/mL (23.9-336.2)
[2021-11-18 11:34] LABS: BACTERIA,URINE Few /HPF (None Seen); RBC,URINE TNTC /HPF (0-5); SQUAMOUS EPITHELIAL CELL,UR NONE SEEN (<= Few); WBC,URINE >25 /HPF (0-3)
[2021-11-18] MEDS: methylPREDNISolone SUCCINATE 40 MG/ML VIAL IVP SCH ×2 (13:08→20:43)
[2021-11-18] MEDS ORDERED: REGADENOSON 0.4 MG/5 ML SYRINGE IVP ONE ×2 (14:39→15:59)
[2021-11-18] MEDS ORDERED: levoFLOXacin 750 MG/150 ML 750 MG/150 ML BAG IV SCH (16:00)
[2021-11-18] MEDS: SACCHAROMYCES BOULARDII 250 MG CAPSULE PO SCH (16:35)
--- NOTE | 2021-11-18 17:27 | Nuclear Medicine Report ---
PROCEDURE: Rest and exercise myocardial perfusion SPECT with gated imaging and ejection fraction INDICATIONS: short of breath RADIOPHARMACEUTICAL: 11.3 mCi Tc-99m Myoview IV at rest and 36.3 mCi Tc-99m Myoview IV at peak exerc ise. [id number] was performed. TECHNIQUE: Radiopharmaceutical was injected at peak stress test, and also at rest. SPECT images wer e obtained. SPECT myocardial perfusion images were displayed in short axis, horizontal long axis, an d vertical long axis views. Gated images were reviewed using AutoQUANT software. COMPARISON: None available. FINDINGS: Raw data: There is good myocardial labeling by radiotracer. No significant motion artifacts. Lung- to-heart ratio is 0.51 (normal is less than 0.46 for tetrafosmin tracer). Left ventricle function: Gated images demonstrate normal left ventricle wall thickening. Left ventri cular global hypokinesis is noted. No transient ischemic dilation; TID is 1.15 (normal less than 1.30 ). The left ventricle resting end-diastolic volume is 159 mL. Left ventricle stress ejection fracti on is 40%; normal values are above 45%. Myocardial perfusion: There is a large fixed perfusion defect involving the anterior, apical, apical septal and apical lateral gupta. Fixed perfusion defect does not normalize in the prone position and is compatible with an area of prior infarction. No reversible perfusion defects identified. IMPRESSION: 1. Abnormal myocardial perfusion study with large infarct involving the anterior, apical, apical-sept al and apical-lateral gupta. No reversible ischemia identified. 2. Abnormal left ventricular function with hypokinesis and abnormal low stress LVEF of 40%. PQRS ATTESTATIONS: Measure 322 - Is this imaging test primarily performed on a low-risk surgery patient for preoperative evaluation within 30 days preceding their low-risk non-cardiac surgery? Low-risk surgery is defined as cardiac or myocardial infarction less than 1%, including (but not limited to) endoscopic pr ocedures, superficial procedures, cataract surgery, and excisional breast surgery: Answer: No Measure 323 - Is this imaging test performed primarily for the monitoring of an asymptomatic patient who had percutaneous coronary intervention on the visit date or within 2 years of the visit date? An swer: No Measure 324 - Is this imaging test performed primarily for the initial detection and risk assessment on an asymptomatic, low coronary heart disease patient? Low CHD risk definition = clinicians should consider the maximum number of available patient factors used to estimate risk based on Howell (A TP III criteria), typically age, gender, diabetes, smoking status, and use of blood pressure medicati on, and integrate age appropriate estimates for missing elements, such as LDL or standard blood press ure. Answer: No Reviewed by: Rowan Franco MD, PhD on 11/18/2021 5:26 PM PDT Approved by: Rowan Franco MD, PhD on 11/18/2021 5:26 PM PDT Station ID: [id number]
--- NOTE | 2021-11-18 17:59 | CARDIAC PROCEDURE NOTE ---
Stress Test Report Service Date: 11/18/21 Service Time: 14:05 Ordering Provider: Emely Lacy MD Indication for Test: Decreased endurance and new CHF on exam Significant Medical History: 76-year-old white male who has documented coronary artery disease and a previous cardiac stent, obese, hypertensive, hyperlipidemic and now has progressive dyspnea on exertion and fatigue for over a year. Edema waxes and wanes. Does have COPD but worried about CAD. Cardiac Risk Factors: Obesity, male sex, family history, hypertension, hyperlipidemia, and documented coronary artery disease Type of Stress Test: Pharmacologic Stress Test with MPI Pharmacologic Agent: Lexiscan Procedure: Informed consent was obtained. Patient is laying on the table and was injected with Lexiscan. During his stress phase, he denied any symptoms. There is no bad taste in his mouth, diaphoresis, chest pain, or cough or chest tightness. EKG had no changes. Baseline EKG Has right bundle branch block, left anterior fascicular block, sinus rhythm. Inverted T waves at V1, V2. With injection of Lexiscan there is no change in his EKG. Blood pressure was dropped to 108 systolic. Prior to Lexiscan, blood pressure was in 118-1 20 systolic. Under separate dictation, myocardial perfusion stress and rest imaging was done by radiology. Summary: Although his EKG did not have any changes with Lexiscan injection, his nuclear medicine study was abnormal. Per that dicatation: He has normal left ventricular wall thickening, left ventricular global hypokinesis noted. Left ventricular resting end-diastolic volume is 159 with ejection fraction at 40%. Myocardial perfusion had a large fixed perfusion defect involving the anterior, apical, apical septal and apical lateral gupta. Fixed perfusion defect did not normalize in the prone position it is compatible with an area of prior infarction. No reversible perfusion defects noted. In summary this patient presents with shortness of breath, fatigue, decreased endurance for over a year. His fear was that he had a heart attack that was undiagnosed. Unfortunately this diagnosis has been confirmed. He now has a new diagnosis of congestive heart failure. Diuresis will be ongoing, ANGEL inhibitor will be added gingerly as well as a of beta-jessica
--- NOTE | 2021-11-18 20:04 | Ultrasound Report ---
PROCEDURE: Abdomen Complete INDICATIONS: renal failue, cirrhosis on labs TECHNIQUE: Real-time scanning was performed of the abdominal and retroperitoneal organs, with image documentatio n. COMPARISON: 05/29/2021. FINDINGS: Study limited secondary to patient body habitus and large amount of bowel gas. Liver: Liver is normal in size and homogeneous in echotexture. Liver is diffusely echogenic. No foca l hepatic mass lesions. Limited evaluation of the main portal vein demonstrates hepatopedal flow. Gallbladder: L bladder is contracted. Gallbladder wall is thickened to 3.9 mm. Previously identified gallbladder wall polyp is not identified in the current study. No pericholecystic fluid. No sonograph ic Leyva sign. Biliary ducts: Intrahepatic bile ducts are non-dilated. Extrahepatic bile duct caliber measures 4.9 mm. Normal is 6-7 mm or less in diameter, or 10 mm or less post-cholecystectomy. Pancreas: Visualized portions of the pancreas are sonographically normal. Spleen: Spleen is normal in size and homogeneous in echotexture. Kidneys: Kidneys are normal in size and echotexture. Right kidney measures 10.0 cm long; left kidne y measures 10.3 cm long. Kidneys are echogenic compatible with reported medical renal disease. Nonobs tructing bilateral renal stones. No hydronephrosis.. No solid masses. Aorta: Visualized aorta is normal in caliber at less than 3 cm. Iliacs: Proximal common iliac arteries are normal in caliber at less than 2.5 cm. IVC: Intrahepatic inferior vena cava is patent. Miscellaneous: No free abdominal fluid. IMPRESSION: 1. Echogenic liver. Finding typically represents fatty infiltration, however finding is nonspecific a nd other etiologies including hepatic cirrhosis can produce a similar appearance. Recommend correlati on with clinical and laboratory data. 2. Gallbladder wall thickening which could be due to biliary disease or gallbladder contraction. If t here is clinical concern for cholecystitis, consider nuclear medicine HIDA scan for additional evalua tion. 3. Bilateral nonobstructing renal stones. 4. Echogenic kidneys compatible with chronic renal failure. Reviewed by: Rowan Franco MD, PhD on 11/18/2021 8:03 PM PDT Approved by: Rowan Franco MD, PhD on 11/18/2021 8:03 PM PDT Station ID: [id number]
[2021-11-18] MEDS: METOPROLOL SUCCINATE 50 MG TABLET PO SCH (20:44)
[2021-11-18] MEDS: allopurinoL 100 MG TABLET PO SCH (20:44)
[2021-11-18] MEDS ORDERED: cefTRIAXone 1 GM in SODIUM CHLORIDE 0.9% MINIBAG 100 ML IV SCH (21:00)
[2021-11-18] MEDS ORDERED: AZITHROMYCIN INJ 500 MG in SODIUM CHLORIDE 0.9% 250 ML IV SCH (22:00)
[2021-11-19] MEDS: SODIUM CHLORIDE 0.9% 1,000 ML IV SCH ×2 (05:19→15:24)
[2021-11-19] MEDS: methylPREDNISolone SUCCINATE 40 MG/ML VIAL IVP SCH (05:19)
[2021-11-19 05:28] LABS: BASOPHILS % (AUTO) 0.2 %; HCT - HEMATOCRIT 29.1 % (42.0-52.0); HGB - HEMOGLOBIN 9.3 g/dL (14.0-18.0); LYMPHOCYTES # (AUTO) 0.4 10^3/uL (1.5-3.5); LYMPHOCYTES % (AUTO) 8.6 %; MEAN CORPUSCULAR HEMOGLOBIN 30.2 pg (27.0-31.0); MEAN CORPUSCULAR VOLUME 94.5 fL (80.0-94.0); MEAN PLATELET VOLUME 9.6 fL (7.4-11.4); MONOCYTES # (AUTO) 0.2 10^3/uL (0.0-1.0); MONOCYTES % (AUTO) 3.2 %; NEUTROPHILS # (AUTO) 4.1 10^3/uL (1.5-6.6); NEUTROPHILS % (AUTO) 87.1 %; PLT - PLATELET COUNT 87 10^3/uL (130-450); RED BLOOD COUNT 3.08 10^6/uL (4.70-6.10); WHITE BLOOD COUNT 4.7 x10^3/uL (4.8-10.8)
[2021-11-19 05:36] LABS: CALCIUM 7.2 mg/dL (8.5-10.3); CREATININE 2.1 mg/dL (0.6-1.2); POTASSIUM 3.3 mmol/L (3.5-5.0)
[2021-11-19 06:47] LABS: HBsAG SCREEN Negative (Negative); HCV AB <0.1 s/co ratio (0.0-0.9); HEPATITIS B CORE IGM AB Negative (Negative)
[2021-11-19] MEDS: METOPROLOL SUCCINATE 50 MG TABLET PO SCH ×2 (09:14→21:44)
[2021-11-19] MEDS: ASPIRIN CHEW 81 MG TABLET PO SCH (09:14)
[2021-11-19] MEDS: ATORVASTATIN 40 MG TABLET PO SCH (09:14)
[2021-11-19] MEDS: allopurinoL 100 MG TABLET PO SCH ×2 (09:15→21:44)
[2021-11-19] MEDS: lisinopriL 5 MG TABLET PO SCH (09:15)
[2021-11-19] MEDS: SACCHAROMYCES BOULARDII 250 MG CAPSULE PO SCH ×2 (09:15→16:01)
[2021-11-19] MEDS: CHOLECALCIFEROL 25 MCG TABLET PO SCH (09:15)
[2021-11-19] MEDS ORDERED: FUROSEMIDE 20 MG/2 ML VIAL IVP STA (13:13)
--- NOTE | 2021-11-19 13:30 | PHARMACY PROGRESS NOTE ---
- Best Possible Medication History Admit Date and Time: 11/18/21 0635 Processed by: Nursing Medication History completed: Yes As the person ultimately responsible for medication therapy, providers are able to order a medication from an existing home medication list in [facility] via the "Reconcile Routine" prior to Confirmation of that medication by care support representative. Such practice is discouraged except when the physician, in their clinical judgment, deems that a medical need exists for a medication without regard to previous use.
[2021-11-19] MEDS: SODIUM CHLORIDE FLUSH 0.9% 10 ML SYRINGE IVP SCH ×2 (13:56→16:01)
--- NOTE | 2021-11-19 15:12 | PROVIDER PROGRESS NOTE ---
Subjective - Prog Note Date Prog Note Date: 11/19/21 Prog Note Time: 15:09 Objective - Vital Signs/Intake & Output Vital Signs: Vital Signs x48h Temp Pulse Pulse Pulse Resp BP BP 11/19/21 10:00 79 74 119/67 11/19/21 07:39 36.2 C L 70 20 123/74 BP Pulse Ox 11/19/21 10:00 142/81 H 11/19/21 07:39 96 Intake & Output: Intake & Output 11/16/21 11/17/21 11/18/21 11/19/21 23:59 23:59 23:59 23:59 Intake Total 2650 1361 Output Total 700 700 Balance 1950 661 - Lab Results Fish Bones: 11/19/21 05:19 11/19/21 05:19 Other Labs: Lab Results x24hrs 11/19/21 11/19/21 11/19/21 Range/Units 05:19 05:19 05:19 WBC 4.7 L (4.8-10.8) x10^3/uL RBC 3.08 L (4.70-6.10) 10^6/uL Hgb 9.3 L (14.0-18.0) g/dL Hct 29.1 L (42.0-52.0) % MCV 94.5 H (80.0-94.0) fL MCH 30.2 (27.0-31.0) pg MCHC 32.0 (32.0-36.0) g/dL RDW 14.0 (12.0-15.0) % Plt Count 87 L (130-450) 10^3/uL MPV 9.6 (7.4-11.4) fL Neut # (Auto) 4.1 (1.5-6.6) 10^3/uL Lymph # (Auto) 0.4 L (1.5-3.5) 10^3/uL Frontier # (Auto) 0.2 (0.0-1.0) 10^3/uL Eos # (Auto) 0.0 (0.0-0.7) 10^3/uL Baso # (Auto) 0.0 (0.0-0.1) 10^3/uL Absolute Nucleated RBC 0.00 x10^3/uL Nucleated RBC % 0.0 /100WBC Sodium 138 (135-145) mmol/L Potassium 3.3 L (3.5-5.0) mmol/L Chloride 102 (101-111) mmol/L Carbon Dioxide 26 (21-32) mmol/L Anion Gap 10.0 (6-13) BUN 36 H (6-20) mg/dL Creatinine 2.1 H (0.6-1.2) mg/dL Estimated GFR (MDRD) 31 L (>89) Glucose 145 H (70-100) mg/dL Calcium 7.2 L (8.5-10.3) mg/dL B-Natriuretic Peptide 858 H (5-100) pg/mL Ceruloplasmin (16.0-31.0) mg/dL Hepatitis A IgM Ab (Negative) Hep Bs Antigen (Negative) Hep B Core IgM Ab (Negative) Hepatitis C Antibody (0.0-0.9) s/co ratio 11/18/21 11/18/21 Range/Units 10:45 10:45 WBC (4.8-10.8) x10^3/uL RBC (4.70-6.10) 10^6/uL Hgb (14.0-18.0) g/dL Hct (42.0-52.0) % MCV (80.0-94.0) fL MCH (27.0-31.0) pg MCHC (32.0-36.0) g/dL RDW (12.0-15.0) % Plt Count (130-450) 10^3/uL MPV (7.4-11.4) fL Neut # (Auto) (1.5-6.6) 10^3/uL Lymph # (Auto) (1.5-3.5) 10^3/uL Frontier # (Auto) (0.0-1.0) 10^3/uL Eos # (Auto) (0.0-0.7) 10^3/uL Baso # (Auto) (0.0-0.1) 10^3/uL Absolute Nucleated RBC x10^3/uL Nucleated RBC % /100WBC Sodium (135-145) mmol/L Potassium (3.5-5.0) mmol/L Chloride (101-111) mmol/L Carbon Dioxide (21-32) mmol/L Anion Gap (6-13) BUN (6-20) mg/dL Creatinine (0.6-1.2) mg/dL Estimated GFR (MDRD) (>89) Glucose (70-100) mg/dL Calcium (8.5-10.3) mg/dL B-Natriuretic Peptide (5-100) pg/mL Ceruloplasmin 22.0 (16.0-31.0) mg/dL Hepatitis A IgM Ab Negative (Negative) Hep Bs Antigen Negative (Negative) Hep B Core IgM Ab Negative (Negative) Hepatitis C Antibody <0.1 (0.0-0.9) s/co ratio Assessment/Plan - Problem List (1) E coli bacteremia Impression: These blood cultures were done in the emergency room when he presented as ostensible "pneumonia". I still feel that this patient's main problem is congestive heart failure and not pneumonia. Clinically he did not have an elevated white cell count nor did he have a fever nor did he have a new cough or new phlegm. He does have significant symptoms of prostatism. Urinalysis had a dark, foul smell but it is contaminated according to review. As such culture will not be helpful. I will treat him as a UTI with bacteremia. Plan: Levaquin day #2. Plan on treating for 2 to 4 weeks depending on my evaluation of his prostate. (2) Acute on chronic diastolic CHF (congestive heart failure) Impression: His story on admission was that of progressive shortness of breath that was subtle and worsening for over a year. He sees the [facility] in [place] once a year to be able to access [facility]. He is 100% service-connected. But he gets his regular follow-up care with a local provider several times a year. He has been on "a list" to see nephrology, cardiology. But he has not been able to get in. In an effort to quantify his shortness of breath I am suggesting that he gets an outpatient work-up from pulmonology with pulmonary function studies. I started the work-up here with nuclear medicine stress testing yesterday. He has a large fixed defect in the anterior wall. No reversible defects. And he has an ejection fraction of 40%. 20 minutes was spent discussing cardiac anatomy and what this means for him. I have described that he will need to go on a beta-jessica, diuretic, and ARB/ANGEL. Plan: Echocardiogram in the outpatient setting when he can get it. Pulmonology consult with pulmonary function studies. Lasix will be daily, lisinopril 5 mg started, add Coreg or Lopressor in the next 1 to 2 days. duoneb To continue steroids x 3 doses IV Completed (3) Pneumonia involving left lung Impression: Conclusion/Plan: Not presenting as significant infection but ER feels this is his primary diagnosis. He denies fever, chills, change in phlegm production. WBC normal. His main complaint is generalized weakness. There is no fever, chills. Nevertheless there was objective findings of pneumonia and he was treated with Rocephin and azithromycin. Yesterday afternoon when he developed E. coli bacteremia, I switched his antibiotics. To treat his left lung as well as the E. coli bacteremia I have switched him over to Levaquin. Status post Rocephin and azithromycin, 2 days Levaquin day #2 Plan: Pneumonia will need to be treated for about 5 days at most. However the E. coli bacteremia may be treated a little bit longer. Qualifiers: Pneumonia type: due to unspecified organism Lung location: lower lobe of lung Qualified Code(s): J18.9 - Pneumonia, unspecified organism (4) Dehydration Conclusion/Plan: He tells me that he has chronic kidney disease. Has had it for decades. 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 In the last year he has been trying to get into see nephrology but has never made it into an appointment because he keeps on remaining on "a list". He states that he is interested in dialysis if he ever progresses to that severity of illness. A long advance care planning conversation ensued. Please refer to that detailed note under separate dict ation. (5) Fall at home Conclusion/Plan: It is a mechanical fall. There is no syncope. He does not have any history of aortic stenosis. No history of arrhythmia. I will take this at face value that it was a simple episode of weakness caused him to go to the floor and then have to lay down. CT of head is negative. Qualifiers: Encounter type: initial encounter Qualified Code(s): W19.XXXA - Unspecified fall, initial encounter; Y92.009 - Unspecified place in unspecified non- institutional (private) residence as the place of occurrence of the external cause (6) Generalized weakness Conclusion/Plan: While he is being ostensibly admitted for pneumonia, and that is our concern, his concern is his generalized weakness. It is nonspecific. But leading to d ecreased endurance, increasing shortness of breath. His history is indicative of possible worsening coronary artery disease, and anemia that is macrocytic in a person who is not an alcoholic, elevated liver enzymes indicating possible liver disease/passive congestion/cirrhosis, new congestive heart failure, worsening kidney function in a patient who takes allopurinol and has BPH. I have been addressing all of these problems individually. Medicine stress test shows an ejection fraction of 40% with a large fixed defect in the anterior wall, but I cannot order echocardiogram since is not available here. Physical therapy has seen him today and states that he is actually more mobile than he describes. He describes himself as slow but physical therapy says that he is actually quite quick and too impulsive. He does not want to use a walker, does not want to use a cane. He is deconditioned and can use some strengthening exercises. They will continue to work with him while he is here. (6) Hypokalemia Conclusion/Plan: in spite of supplementation still low so will continue to give oral K and recheck (7) Hypomagnesemia Conclusion/Plan: supplement and recheck. (8) BPH (benign prostatic hyperplasia) Conclusion/Plan: And shows him to have retained kidney stones that are nonobstructing. He does not have hydro-. His bladder is not dilated. He does have a large prostate. PSA has not been ordered and I will do that for tomorrow morning. Flomax is for tonight. Qualifiers: Lower urinary tract symptom presence: symptoms present (9) Hx of gout Conclusion/Plan: reduce allopurinol dose. I Have skipped his allopurinol while he is here. (10) Dysuria Conclusion/Plan: Urinalysis was indicative of infection. He is ended up having gram-negative bacteremia. But the culture is a contaminated culture and is not clinically significant for me. (11) Elevated liver enzymes Conclusion/Plan: he is stoutly maintaining that he is NOT a drinker so he denies alcoholism as an issue. He may have right sided fialure. On ultrasound he has a fatty liver. Hepatitis panel is negative. KARISHMA is negative. (12) Macrocytic anemia Conclusion/Plan: He does not have hemolysis. Ferritin is normal. Ceruloplasmin is normal. Vitamin B12 is normal. TSH is normal. I would venture to say that he most likely has anemia of chronic disease because of his chronic kidney disease, however the macrocytosis is worrisome. I would recommend that he be seen by oncology to rule out myelodysplastic syndrome.
[2021-11-19] MEDS ORDERED: POTASSIUM CHLORIDE 20 MEQ TABLET PO STA (15:26)
[2021-11-19] MEDS ORDERED: MAGNESIUM SULFATE 2 GRAM 2 GM/50 ML BAG IV ONE (15:28)
--- NOTE | 2021-11-19 15:37 | ADVANCE CARE PLANNING NOTE ---
Advance Care Planning - Planning Encounter Date: 11/19/21 Time: 13:30 Purpose: Discussed his new can addition of congestive heart failure, establish care goals, discuss resuscitative request Parties in Attendance: Hospitalist and patient Decisional Capacity of the Patient: Alert, oriented. Makes his own decisions. He states that if he ever were to be unconscious and needed his power of state attorney to speak for him, that would be his brother Valentino Tracy at [phone] - Diagnosis for Encounter (1) Acute on chronic diastolic CHF (congestive heart failure) Summary: New diagnosis for him. He has a history of coronary artery disease with a stent placed many years ago. He has been isosorbide, atorvastatin, and aspirin to manage his history of coronary artery disease. He says he has been using those drugs for "25 years". Has had progressive shortness of breath that is getting worse over the last year. Decreasing endurance. He wanted to make sure he not had another heart attack. We have done a nuclear medicine stress test and he has a 40% ejection fraction and a fixed defect of the anterior wall. This is all new for him. - Encounter Subjective/Patient's Story: for many years to a [place] . Ended up settling on [facility]. Their primary care provider was Dr. France which was perfect for them because Dr. France was able to speak [place] with his . in 2016 with end-stage dementia and he took care of her for a very long time. The final event was a massive stroke. Since that time he is lived alone in his own home. He has a brother and a sister in [facility]. Brother is executor of his estate. He does talk to them regularly. He says he really has no intention of moving closer to them, even though he regards himself is close to his siblings, because he cannot stand the heat of [facility]. He is come to love the coolness of [facility] and cannot imagine living anywhere else. He goes to the [employer] 3-4 times a week for entertainment purposes. He states that it is under control he has not put himself in debt with this. He allows himself 2-3 "turns at the wheel" and then just socializes. 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 he also gets together with them to do rounds of golf when the weather is good. Most of them are also and they all share commonality. He has a friend of his that comes to clean his house once a week and buys groceries for him. He pays her. He tells me he has about $250,000 in the bank, and continues to get about $80,000 a year in senior care. So he feels like he has a good buffer to take care of himself in his old age. When he dies, his brother will receive his estate. The last year has been hard on him because his endurance is decreased. He just cannot move around is much as he used to and everything is a struggle. As long as he slowly does something he can get up accomplish but worsening dyspnea on exertion and intermittent leg edema have been plaguing him. With this admission I have found him to have anemia of chronic disease, most likely from chronic kidney disease. He also has enough macrocytosis that I wonder about myelodysplastic syndrome. He has a new diagnosis of acute on chronic congestive heart failure. Any is his chronic baseline emphysema from old smoking. We discussed "what if's". I wanted to explore various scenarios to see what he considered something that he wanted to do something about or what would cause him to decline intervention. Scenarios we discussed were: chronic kidney disease sliding into end-stage renal disease and needing dialysis. Pneumonia with respiratory failure requiring intubation. Septic shock. A fall with hip fracture or subdural. Stroke resulting in significant reduction in mobility and functionality and requiring 24/7 care. Cardiopulmonary arrest that was sudden. His overriding philosophy was repeated many times by him. He states that he still wants interventions for all illnesses especially if they are treatable and reversible. The only time he would say that he does not want us to intervene anymore is if he ends up chair bound or bedbound. He does not mind living alone and having people help take care of him with regards to activities of daily living and bathing, dressing, feeding. But if he were bedbound or chair bound it is time to call at "quits". I asked him if this was to be in play if he was still alert, oriented and himself, and he stated yes. If he cannot get out of bed, get out of a chair, to please make arrangements to no longer hospitalized him, and transition to palliative care and eventual hospice. He would want to stay at home and pay for caregivers. He did say that he would like blood transfusions if he were bleeding or having an upper GI bleed. If he needs to have dialysis he is okay with that. I describe dialysis is being 2 to 3 hours a day, up to 3 times a week. He shrugged and stated that as long as he could still go to the [employer], still see his buddies for dinner, read a book and watch TV he was okay with dialysis. He wanted surgeries for any abdominal problems or fractures. If we needed to temporarily intubated for acute respiratory failure but we anticipated him recovering on the other side of it, he was amenable to that. He just did not want to be resuscitated if we have done everything possible to treat him and he still went into cardiopulmonary arrest. At that point in time he wants to be DNR and DNI. Objective/Medical Story: 76-year-old white male with a history of coronary artery disease, stent placed 2011, hypertension, GERD, hyperlipidemia, morbid obesity, gout, and benign prostatic hypertrophy. He presents with weakness that has been getting worse, to the point that when he get out of a chair, he slid to his knees on the floor and had to lay there for a long time. On review of systems he describes a gradual progressive shortness of breath, waxing and waning edema. He denies orthopnea, palpitations, or any forms of angina. We have found him to have a macrocytic anemia with a normal B12, normal thyroid, normal iron studies. He denies alcohol abuse. He may have early myelodysplastic syndrome. I did a cardiac evaluation with nuclear medicine stress test and he has a fixed reversible defect in the anterior wall indicating an old [place]. Ejection fraction is now 40%. He has emphysema that is unquantifiable. Overall phlegm production is stable. No worsening wheezing. Just an overall reduction in cardiopulmonary endurance. We are now starting him on an ARB, diuretic, beta-jessica. Adjusting his medications for emphysema. And beginning advance care planning conversations to have him guide us on how far he wants to go with treatment and evaluation. Goals of Care: He would like to remain in his own home until he passes away. He feels that he has the finances to pay for in-home support. He does not want to move to [facility] to be near his sister and brother. He has no desire to go to a detention facility since his was placed there for the last 3 days of her life after a massive stroke. He would rather be comfortable at home to . Right now his quality of life is defined by his ability to socialize with his buddies, go to the [employer], and see his extended social network that he is [place] [facility] [place] [facility] years. As long as he can do all of those things he feels like he has an excellent quality of life. Plan: 1. DO NOT RESUSCITATE in the event of a cardiopulmonary arrest. 2. Dialysis is an option if he progresses to end-stage renal disease 3. Power of state attorney is his brother. He will discuss all of these things with his brother to make sure his family is aware of his wishes. 4. [facility] and his primary care provider. There are further work-up evaluations that he needed, namely touching base with nephrology over his chronic kidney disease. Need to see if he needs erythropoietin. He needs to make contact with pulmonology to quantify his COPD. Code Status: Do Not Attempt Resuscitation Time spent on advance care plannin minutes
[2021-11-19 17:08] LABS: ANTI-DNA (DS) AB QN <1 IU/mL (0-9); CENTROMERE B ANTIBODIES <0.2 AI (0.0-0.9); CHROMATIN ANTIBODIES <0.2 AI (0.0-0.9); JO-1 AB <0.2 AI (0.0-0.9); RIBOSOMAL P ANTIBODIES <0.2 AI (0.0-0.9); RNP ANTIBODIES <0.2 AI (0.0-0.9); SCLERODERMA-70 ANTIBODIES <0.2 AI (0.0-0.9); SJOGREN'S ANTI-SS-A <0.2 AI (0.0-0.9); SJOGREN'S ANTI-SS-B <0.2 AI (0.0-0.9); SMITH ANTIBODIES <0.2 AI (0.0-0.9); SMITH/RNP ANTIBODIES <0.2 AI (0.0-0.9)
[2021-11-19] MEDS: TAMSULOSIN 0.4 MG CAPSULE PO SCH (21:44)
[2021-11-20] MEDS: SODIUM CHLORIDE FLUSH 0.9% 10 ML SYRINGE IVP SCH ×3 (00:15→16:13)
[2021-11-20] MEDS: SODIUM CHLORIDE 0.9% 1,000 ML IV SCH ×2 (02:30→14:20)
[2021-11-20 05:36] LABS: BASOPHILS % (AUTO) 0.2 %; HGB - HEMOGLOBIN 10.4 g/dL (14.0-18.0); LYMPHOCYTES # (AUTO) 0.5 10^3/uL (1.5-3.5); LYMPHOCYTES % (AUTO) 7.8 %; MEAN CORPUSCULAR HEMOGLOBIN 30.7 pg (27.0-31.0); MEAN CORPUSCULAR HGB CONC 31.5 g/dL (32.0-36.0); MEAN CORPUSCULAR VOLUME 97.3 fL (80.0-94.0); MEAN PLATELET VOLUME 10.8 fL (7.4-11.4); MONOCYTES # (AUTO) 0.4 10^3/uL (0.0-1.0); MONOCYTES % (AUTO) 5.8 %; NEUTROPHILS # (AUTO) 5.6 10^3/uL (1.5-6.6); NEUTROPHILS % (AUTO) 85.4 %; PLT - PLATELET COUNT 96 10^3/uL (130-450); RED BLOOD COUNT 3.39 10^6/uL (4.70-6.10); RED CELL DISTRIBUTION WIDTH 13.8 % (12.0-15.0); WHITE BLOOD COUNT 6.5 x10^3/uL (4.8-10.8)
[2021-11-20 05:50] LABS: CALCIUM 7.7 mg/dL (8.5-10.3); CREATININE 2.1 mg/dL (0.6-1.2); MAGNESIUM 2.2 mg/dL (1.7-2.8)
[2021-11-20] MEDS: SACCHAROMYCES BOULARDII 250 MG CAPSULE PO SCH ×2 (09:27→16:13)
[2021-11-20] MEDS: lisinopriL 5 MG TABLET PO SCH (09:27)
[2021-11-20] MEDS: ATORVASTATIN 40 MG TABLET PO SCH (09:27)
[2021-11-20] MEDS: ASPIRIN CHEW 81 MG TABLET PO SCH (09:27)
[2021-11-20] MEDS: allopurinoL 100 MG TABLET PO SCH (09:27)
[2021-11-20] MEDS: CHOLECALCIFEROL 25 MCG TABLET PO SCH (09:27)
[2021-11-20] MEDS: METOPROLOL SUCCINATE 50 MG TABLET PO SCH ×2 (09:27→20:08)
[2021-11-20 12:13] LABS: PSA FREE 0.27 ng/mL (0.16-2.81)
[2021-11-20 12:14] LABS: PSA TOTAL 1.67 ng/mL (0.000-2.000)
--- NOTE | 2021-11-20 15:36 | PROVIDER PROGRESS NOTE ---
Subjective - Prog Note Date Prog Note Date: 11/13/21 Prog Note Time: 15:34 - Subjective Pt reports feeling: Improved Subjective: The patient is asking about DVT prophylaxis. I had ordered Lovenox, but because his platelets were below 100, Lovenox was discontinued by pharmacy. I will need to order another form of DVT prophylaxis. He is otherwise slowly improving. Still more short of breath than he would like when he walks in the hallway or his room. Still continuing to have a gurgling respiration. Otherwise no chest pain, no abdominal pain. Current Medications - Current Medications Current Medications: Active Medications Acetaminophen (Acetaminophen 325 Mg Tablet) 650 mg PO Q4HR PRN PRN Reason: Pain 1 to 4, or Fever Albuterol/Ipratropium (Ipratropium/Albuterol 3 Ml Neb) 3 ml INH RTQID PRN PRN Reason: Wheezing Allopurinol (Allopurinol 100 Mg Tablet) 100 mg PO BID [facility] Last Admin: 11/20/21 09:27 Dose: 100 mg Aspirin (Aspirin Chew 81 Mg Tablet) 81 mg PO DAILY [facility] Last Admin: 11/20/21 09:27 Dose: 81 mg Atorvastatin Calcium (Atorvastatin 40 Mg Tablet) 40 mg PO DAILY [facility] Last Admin: 11/20/21 09:27 Dose: 40 mg Cholecalciferol (Cholecalciferol 25 Mcg Tablet) 50 mcg PO DAILY [facility] Last Admin: 11/20/21 09:27 Dose: 50 mcg Sodium Chloride (Normal Saline 0.9%) 1,000 mls @ 100 mls/hr IV .Q10H [facility] Last Admin: 11/20/21 14:20 Dose: 100 mls/hr Levofloxacin (Levofloxacin 250 Mg Tablet) 750 mg PO Q48H [facility] Lisinopril (Lisinopril 5 Mg Tablet) 5 mg PO DAILY [facility] Last Admin: 11/20/21 09:27 Dose: Not Given Metoprolol Succinate (Metoprolol Succinate 50 Mg Tablet) 50 mg PO BID [facility] Last Admin: 11/20/21 09:27 Dose: 50 mg Ondansetron HCl (Ondansetron Odt 4 Mg Tablet) 4 mg TL Q6HR PRN PRN Reason: Nausea / Vomiting Ondansetron HCl (Ondansetron 4 Mg/2 Ml Vial) 4 mg IVP Q6HR PRN PRN Reason: Nausea / Vomiting Oxycodone HCl (Oxycodone 5 Mg Tablet) 5 mg PO Q4HR PRN PRN Reason: Pain 5 to 7 Prochlorperazine Edisylate (Prochlorperazine 10 Mg/2 Ml Vial) 10 mg IVP Q6HR PRN PRN Reason: Nausea / Vomiting Saccharomyces Boulardii (Saccharomyces Boulardii 250 Mg Capsule) 250 mg PO BIDWM [facility] Last Admin: 11/20/21 09:27 Dose: 250 mg Sodium Chloride (Sodium Chloride Flush 0.9% 10 Ml Syringe) 10 ml IVP PRN PRN PRN Reason: NEEDED PER PROVIDER ORDERS Sodium Chloride (Sodium Chloride Flush 0.9% 10 Ml Syringe) 10 ml IVP 0100,0900,1700 [facility] Last Admin: 11/20/21 09:27 Dose: Not Given Tamsulosin HCl (Tamsulosin 0.4 Mg Capsule) 0.4 mg PO QPM [facility] Last Admin: 11/19/21 21:44 Dose: 0.4 mg Alfuzosin HCl [Alfuzosin HCl ER] 10 mg PO DAILY 04/15/15 Cholecalciferol (Vitamin D3) [Vitamin D3] 2 cap PO DAILY 04/15/15 Isosorbide Mononitrate [Isosorbide Mononitrate ER] 60 mg PO DAILY 04/15/15 Metoprolol Succinate [Toprol Xl] 50 mg PO BID 04/15/15 Omeprazole 2 tab PO DAILY 04/15/15 allopurinoL [Allopurinol] 100 mg PO BID 04/15/15 Atorvastatin Calcium 40 mg PO DAILY 05/26/21 Objective - Vital Signs/Intake & Output Reviewed Vital Signs: Yes Vital Signs: Vital Signs x48h Pulse BP 11/20/21 09:24 73 122/76 Intake & Output: Intake & Output 11/17/21 11/18/21 11/19/21 11/20/21 23:59 23:59 23:59 23:59 Intake Total 2650 3240 2710 Output Total 700 1125 400 Balance 1950 2115 2310 - Objective General Appearance: positive: No acute distress, Alert, Other (No daily weights being done. I only have his admission weight of 124 kg.Comfortable, no shortness of breath but still has gurgling respiration) Eyes Bilateral: positive: PERRL, EOMI Neck: positive: No JVD. negative: Stiff neck Respiratory: positive: No respiratory distress, Rhonchi. negative: Wheezes, Rales Cardiovascular: positive: Regular rate & rhythm. negative: Gallop/S4, Friction rub Abdomen: positive: Non-tender, No organomegaly, Nml bowel sounds, No distention, Other (Obese, large pannus) Skin: positive: Warm, Dry Extremities: positive: Full ROM, Pedal edema (Feet are starting to shrink down from yesterday as his legs). negative: Farhat's sign/cords Neurologic/Psychiatric: positive: Oriented x3, CN's nml (2-12), Motor nml - Lab Results Fish Bones: 11/20/21 05:23 11/20/21 05:23 Other Labs: Lab Results x24hrs 11/20/21 11/20/21 11/20/21 Range/Units 11:36 11:36 05:23 WBC (4.8-10.8) x10^3/uL RBC (4.70-6.10) 10^6/uL Hgb (14.0-18.0) g/dL Hct (42.0-52.0) % MCV (80.0-94.0) fL MCH (27.0-31.0) pg MCHC (32.0-36.0) g/dL RDW (12.0-15.0) % Plt Count (130-450) 10^3/uL MPV (7.4-11.4) fL Neut # (Auto) (1.5-6.6) 10^3/uL Lymph # (Auto) (1.5-3.5) 10^3/uL [place] # (Auto) (0.0-1.0) 10^3/uL Eos # (Auto) (0.0-0.7) 10^3/uL Baso # (Auto) (0.0-0.1) 10^3/uL Absolute Nucleated RBC x10^3/uL Nucleated RBC % /100WBC Sodium 140 (135-145) mmol/L Potassium 4.0 (3.5-5.0) mmol/L Chloride 105 (101-111) mmol/L Carbon Dioxide 25 (21-32) mmol/L Anion Gap 10.0 (6-13) BUN 37 H (6-20) mg/dL Creatinine 2.1 H (0.6-1.2) mg/dL Estimated GFR (MDRD) 31 L (>89) Glucose 136 H (70-100) mg/dL Calcium 7.7 L (8.5-10.3) mg/dL Magnesium 2.2 (1.7-2.8) mg/dL B-Natriuretic Peptide 878 H (5-100) pg/mL Prostate Specific Ag 1.670 (0.000-2.000) ng/mL Free PSA 0.270 (0.16-2.81) ng/mL % Free PSA Calc 16 L (25-100) % KARISHMA Interpretation (.) Anti-sm/[employer] Abs (0.0-0.9) AI POLLO-1 Antibody (0.0-0.9) AI SS-A/Ro Antibody (0.0-0.9) AI SS-B/La Antibody (0.0-0.9) AI Sm (Stout) Antibody (0.0-0.9) AI [employer] Antibody (0.0-0.9) AI Scl-70 Scleroderma Ab (0.0-0.9) AI Double Strand DNA Ab (0-9) IU/mL Ribosomal P Prot Ab (0.0-0.9) AI Chromatin Antibody (0.0-0.9) AI Centromere B Antibody (0.0-0.9) AI 11/20/21 11/18/21 Range/Units 05:23 10:45 WBC 6.5 (4.8-10.8) x10^3/uL RBC 3.39 L (4.70-6.10) 10^6/uL Hgb 10.4 L (14.0-18.0) g/dL Hct 33.0 L (42.0-52.0) % MCV 97.3 H (80.0-94.0) fL MCH 30.7 (27.0-31.0) pg MCHC 31.5 L (32.0-36.0) g/dL RDW 13.8 (12.0-15.0) % Plt Count 96 L (130-450) 10^3/uL MPV 10.8 (7.4-11.4) fL Neut # (Auto) 5.6 (1.5-6.6) 10^3/uL Lymph # (Auto) 0.5 L (1.5-3.5) 10^3/uL [place] # (Auto) 0.4 (0.0-1.0) 10^3/uL Eos # (Auto) 0.0 (0.0-0.7) 10^3/uL Baso # (Auto) 0.0 (0.0-0.1) 10^3/uL Absolute Nucleated RBC 0.00 x10^3/uL Nucleated RBC % 0.0 /100WBC Sodium (135-145) mmol/L Potassium (3.5-5.0) mmol/L Chloride (101-111) mmol/L Carbon Dioxide (21-32) mmol/L Anion Gap (6-13) BUN (6-20) mg/dL Creatinine (0.6-1.2) mg/dL Estimated GFR (MDRD) (>89) Glucose (70-100) mg/dL Calcium (8.5-10.3) mg/dL Magnesium (1.7-2.8) mg/dL B-Natriuretic Peptide (5-100) pg/mL Prostate Specific Ag (0.000-2.000) ng/mL Free PSA (0.16-2.81) ng/mL % Free PSA Calc (25-100) % KARISHMA Interpretation Comment (.) Anti-sm/[employer] Abs <0.2 (0.0-0.9) AI POLLO-1 Antibody <0.2 (0.0-0.9) AI SS-A/Ro Antibody <0.2 (0.0-0.9) AI SS-B/La Antibody <0.2 (0.0-0.9) AI Sm (Stout) Antibody <0.2 (0.0-0.9) AI [employer] Antibody <0.2 (0.0-0.9) AI Scl-70 Scleroderma Ab <0.2 (0.0-0.9) AI Double Strand DNA Ab <1 (0-9) IU/mL Ribosomal P Prot Ab <0.2 (0.0-0.9) AI Chromatin Antibody <0.2 (0.0-0.9) AI Centromere B Antibody <0.2 (0.0-0.9) AI Assessment/Plan - Problem List (1) E coli bacteremia Impression: Impression: These blood cultures were done in the emergency room when he presented as ostensible "pneumonia". I still feel that this patient's main problem is congestive heart failure and not pneumonia. Clinically he did not have an elevated white cell count nor did he have a fever nor did he have a new cough or new phlegm. He does have significant symptoms of prostatism. Urinalysis had a dark, foul smell but it is contaminated according to review. As such culture will not be helpful. I will treat him as a UTI with bacteremia. Plan: Levaquin day #3. Plan on treating for 2 to 4 weeks depending on my evaluation of his prostate. (2) Acute on chronic diastolic CHF (congestive heart failure) Impression: His story on admission was that of progressive shortness of breath that was subtle and worsening for over a year. He sees the [facility] in [place] once a year to be able to access [facility]. He is 100% service-connected. But he gets his regular follow-up care with a local provider several times a year. He has been on "a list" to see nephrology, cardiology. But he has not been able to get in. In an effort to quantify his shortness of breath I am suggesting that he gets an outpatient work-up from pulmonology with pulmonary function studies. I started the work-up here with nuclear medicine stress testing 11/18. He has a large fixed defect in the anterior wall. No reversible defects. And he has an ejection fraction of 40%. Yesterday 20 minutes was spent discussing cardiac anatomy and what this means for him. I have described that he will need to go on a beta-jessica, diuretic, and ARB/ANGEL. Today he has no questions. BP is about 118 with all of this. Weight in April 2015 was 110.5 kg. In May 2021 it was 112 kg. It is 124 kg today. Plan: Echocardiogram in the outpatient setting when he can get it. Pulmonology consult with pulmonary function studies. Lasix will be daily, lisinopril 5 mg started 11/19, add Coreg or Lopressor in the next 1 to 2 days. duoneb To continue steroids x 3 doses IV Completed daily weights low salt diet (3) Pneumonia involving left lung Impression: Conclusion/Plan: Not presenting as significant infection but ER feels this is his primary diagnosis. He denies fever, chills, change in phlegm production. WBC normal. His main complaint is generalized weakness. There is no fever, chills. Never theless there was objective findings of pneumonia and he was treated with Rocephin and azithromycin. 11/18 afternoon when he developed E. coli bacteremia, I switched his antibiotics. To treat his left lung as well as the E. coli bacteremia, I have switched him over to Levaquin. Status post Rocephin and azithromycin, 2 days Levaquin day #3 Plan: Pneumonia will need to be treated for about 5 days at most. However the E. coli bacteremia may be treated a little bit longer. Qualifiers: Pneumonia type: due to unspecified organism Lung location: lower lobe of lung Qualified Code(s): J18.9 - Pneumonia, unspecified organism (4) Dehydration Conclusion/Plan: He tells me that he has chronic kidney disease. Has had it for decades. 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 In the last year he has been trying to get into see nephrology but has never made it into an appointment because he keeps on remaining on "a list". He states that he is interested in dialysis if he ever progresses to that severity of illness. A long advance care planning conversation ensued. Please refer to that detailed note under separate dictation 11/19 (5) Fall at home Conclusion/Plan: It is a mechanical fall. There is no syncope. He does not have any history of aortic stenosis. No history of arrhythmia. I will take this at face value that it was a simple episode of weakness caused him to go to the floor and then have to lay down. CT of head is negative. Qualifiers: Encounter type: initial encounter Qualified Code(s): W19.XXXA - Unspecified fall, initial encounter; Y92.009 - Unspecified place in unspecified non- institutional (private) residence as the place of occurrence of the external cause (6) Generalized weakness Conclusion/Plan: While he is being ostensibly admitted for pneumonia, and that is our concern, his concern is his generalized weakness. It is nonspecific. But leading to decreased endurance, increasing shortness of breath. His history is indicative of possible worsening coronary artery disease, and anemia that is macrocytic in a person who is not an alcoholic, elevated liver enzymes indicating possible arlene er disease/passive congestion/cirrhosis, new congestive heart failure, worsening kidney function in a patient who takes allopurinol and has BPH. I have been addressing all of these problems individually. Medicine stress test shows an ejection fraction of 40% with a large fixed defect in the anterior wall, but I cannot order echocardiogram since is not available here. Physical therapy started working with him 11/19 and states that he is actually more mobile than he describes. He describes himself as slow but physical therapy says that he is actually quite quick and too impulsive. He does not want to use a walker, does not want to use a cane. He is deconditioned and can use some strengthening exercises. They will continue to work with him while he is here. Other than occasional right knee pain, the patient is doing well. Per physical therapy notes: The pt received 25 minutes of skilled PT today, this was focused on education and discussion of safe mobility into and around his home upon DC. Pt demonstrates improved safety and balance using FWW during PT today, able to amb x30' with step through gait pattern and no LOB. Pt instructed in home exercise program and educated on energy conservation. Pt has handout with hep information; pt is agreeable to work with HHPT/OT to improve his indep and mobility. At the end of the session the pt was sitting up in bedside chair with all needs met, chair alarm set, tray table and call light in reach. When medically stable recommend DC home via POV with HHPT/OT to improve his functional indep. (6) Hypokalemia resolved Conclusion/Plan: after 2 days of supplementation. continue to monitor (7) Hypomagnesemia resolved Conclusion/Plan: after 2 days of supplementation. continue to monitor (8) BPH (benign prostatic hyperplasia) Conclusion/Plan: US shows him to have retained kidney stones that are nonobstructing. He does not have hydro-. His bladder is not dilated. He does have a large prostate. PSA is normal. In order to make sure he does not hyperparathyroidism causing his stones, I am checking a PTH. For his benign prostatic hypertrophy he is on alpha med+flomax Qualifiers: Lower urinary tract symptom presence: symptoms present (9) Hx of gout Conclusion/Plan: reduce allopurinol dose. I Have skipped his allopurinol while he is here. (10) Dysuria Conclusion/Plan: Urinalysis was indicative of infection. He is ended up having gram-negative bacteremia. But the culture is a contaminated culture and is not clinically significant for me. (11) Elevated liver enzymes Conclusion/Plan: he is stoutly maintaining that he is NOT a drinker so he denies alcoholism as an issue. He may have right sided fialure. On ultrasound he has a fatty liver. Hepatitis panel is negative. KARISHMA is negative. (12) Macrocytic anemia Conclusion/Plan: He does not have hemolysis. Ferritin is normal. Ceruloplasmin is normal. Vitamin B12 is normal. TSH is normal. I would venture to say that he most lik olivier has anemia of chronic disease because of his chronic kidney disease, however the macrocytosis is worrisome. I would recommend that he be seen by oncology to investigate the macrocytosis.
[2021-11-20] MEDS: levoFLOXacin 250 MG TABLET PO SCH (16:12)
[2021-11-20] MEDS ORDERED: SODIUM CHLORIDE 0.9% 1,000 ML IV SCH (17:23)
[2021-11-20] MEDS: TAMSULOSIN 0.4 MG CAPSULE PO SCH (20:08)
[2021-11-21] MEDS: SODIUM CHLORIDE FLUSH 0.9% 10 ML SYRINGE IVP SCH ×3 (00:22→17:49)
[2021-11-21 06:20] LABS: EOSINOPHILS % (AUTO) 0.2 %; HCT - HEMATOCRIT 30.7 % (42.0-52.0); HGB - HEMOGLOBIN 9.6 g/dL (14.0-18.0); LYMPHOCYTES # (AUTO) 0.9 10^3/uL (1.5-3.5); LYMPHOCYTES % (AUTO) 18.9 %; MEAN CORPUSCULAR HEMOGLOBIN 30.4 pg (27.0-31.0); MEAN CORPUSCULAR HGB CONC 31.3 g/dL (32.0-36.0); MEAN CORPUSCULAR VOLUME 97.2 fL (80.0-94.0); MEAN PLATELET VOLUME 9.6 fL (7.4-11.4); MONOCYTES # (AUTO) 0.4 10^3/uL (0.0-1.0); MONOCYTES % (AUTO) 7.7 %; NEUTROPHILS # (AUTO) 3.4 10^3/uL (1.5-6.6); NEUTROPHILS % (AUTO) 72.6 %; PLT - PLATELET COUNT 109 10^3/uL (130-450); RED BLOOD COUNT 3.16 10^6/uL (4.70-6.10); RED CELL DISTRIBUTION WIDTH 13.8 % (12.0-15.0); WHITE BLOOD COUNT 4.7 x10^3/uL (4.8-10.8)
[2021-11-21 06:27] LABS: CALCIUM 7.7 mg/dL (8.5-10.3); CREATININE 2.1 mg/dL (0.6-1.2); MAGNESIUM 1.9 mg/dL (1.7-2.8); POTASSIUM 3.4 mmol/L (3.5-5.0)
[2021-11-21] MEDS: CHOLECALCIFEROL 25 MCG TABLET PO SCH (08:51)
[2021-11-21] MEDS: SACCHAROMYCES BOULARDII 250 MG CAPSULE PO SCH ×2 (08:51→17:49)
[2021-11-21] MEDS: ATORVASTATIN 40 MG TABLET PO SCH (08:51)
[2021-11-21] MEDS: allopurinoL 100 MG TABLET PO SCH (08:51)
[2021-11-21] MEDS: ASPIRIN CHEW 81 MG TABLET PO SCH (08:51)
[2021-11-21] MEDS ORDERED: FUROSEMIDE 20 MG/2 ML VIAL IVP SCH (09:00)
[2021-11-21] MEDS: lisinopriL 5 MG TABLET PO SCH (09:01)
[2021-11-21] MEDS: METOPROLOL SUCCINATE 50 MG TABLET PO SCH ×2 (09:01→21:02)
--- NOTE | 2021-11-21 13:47 | PROVIDER PROGRESS NOTE ---
Subjective - Prog Note Date Prog Note Date: 11/21/21 Prog Note Time: 14:13 - Subjective Pt reports feeling: Improved Subjective: He is very pleased that the DEN rojas I ordered yesterday for DVT prophylaxis have resulted in even more reduction in his leg edema. He has not seen his legs the skinny in a very long time. He is eating his food well. Still has quite a bit of gurgling when he breathes any complains of a postnasal drip and his allergies acting up. At home he uses some type of filter machine and he does not have this problem that he has here. Denies fever, chills, abdominal pain, and dysuria has resolved since admission. Current Medications - Current Medications Current Medications: Active Medications Acetaminophen (Acetaminophen 325 Mg Tablet) 650 mg PO Q4HR PRN PRN Reason: Pain 1 to 4, or Fever Albuterol/Ipratropium (Ipratropium/Albuterol 3 Ml Neb) 3 ml INH RTQID PRN PRN Reason: Wheezing Allopurinol (Allopurinol 100 Mg Tablet) 100 mg PO DAILY [facility] Last Admin: 11/21/21 08:51 Dose: 100 mg Aspirin (Aspirin Chew 81 Mg Tablet) 81 mg PO DAILY [facility] Last Admin: 11/21/21 08:51 Dose: 81 mg Atorvastatin Calcium (Atorvastatin 40 Mg Tablet) 40 mg PO DAILY [facility] Last Admin: 11/21/21 08:51 Dose: 40 mg Cholecalciferol (Cholecalciferol 25 Mcg Tablet) 50 mcg PO DAILY [facility] Last Admin: 11/21/21 08:51 Dose: 50 mcg Furosemide (Furosemide 20 Mg Tablet) 20 mg PO BIDDIURETIC [facility] Sodium Chloride (Normal Saline 0.9%) 1,000 mls @ 0 mls/hr IV .Q0M [facility] Levofloxacin (Levofloxacin 250 Mg Tablet) 750 mg PO Q48H [facility] Last Admin: 11/20/21 16:12 Dose: 750 mg Lisinopril (Lisinopril 5 Mg Tablet) 5 mg PO DAILY [facility] Last Admin: 11/21/21 09:01 Dose: 5 mg Metoprolol Succinate (Metoprolol Succinate 50 Mg Tablet) 50 mg PO BID [facility] Last Admin: 11/21/21 09:01 Dose: 50 mg Ondansetron HCl (Ondansetron Odt 4 Mg Tablet) 4 mg TL Q6HR PRN PRN Reason: Nausea / Vomiting Ondansetron HCl (Ondansetron 4 Mg/2 Ml Vial) 4 mg IVP Q6HR PRN PRN Reason: Nausea / Vomiting Oxycodone HCl (Oxycodone 5 Mg Tablet) 5 mg PO Q4HR PRN PRN Reason: Pain 5 to 7 Prochlorperazine Edisylate (Prochlorperazine 10 Mg/2 Ml Vial) 10 mg IVP Q6HR PRN PRN Reason: Nausea / Vomiting Saccharomyces Boulardii (Saccharomyces Boulardii 250 Mg Capsule) 250 mg PO BIDWM [facility] Last Admin: 11/21/21 08:51 Dose: 250 mg Sodium Chloride (Sodium Chloride Flush 0.9% 10 Ml Syringe) 10 ml IVP PRN PRN PRN Reason: NEEDED PER PROVIDER ORDERS Sodium Chloride (Sodium Chloride Flush 0.9% 10 Ml Syringe) 10 ml IVP 0100,0900,1700 [facility] Last Admin: 11/21/21 08:52 Dose: 10 ml Tamsulosin HCl (Tamsulosin 0.4 Mg Capsule) 0.4 mg PO QPM [facility] Last Admin: 11/20/21 20:08 Dose: 0.4 mg Alfuzosin HCl [Alfuzosin HCl ER] 10 mg PO DAILY 04/15/15 Cholecalciferol (Vitamin D3) [Vitamin D3] 2 cap PO DAILY 04/15/15 Isosorbide Mononitrate [Isosorbide Mononitrate ER] 60 mg PO DAILY 04/15/15 Metoprolol Succinate [Toprol Xl] 50 mg PO BID 04/15/15 Omeprazole 2 tab PO DAILY 04/15/15 allopurinoL [Allopurinol] 100 mg PO BID 04/15/15 Atorvastatin Calcium 40 mg PO DAILY 05/26/21 Objective - Vital Signs/Intake & Output Reviewed Vital Signs: Yes Vital Signs: Vital Signs x48h Temp Pulse Resp BP Pulse Ox 11/21/21 08:50 65 133/66 H 11/21/21 08:00 36.3 C L 70 18 137/68 H 92 Intake & Output: Intake & Output 11/18/21 11/19/21 11/20/21 11/21/21 23:59 23:59 23:59 23:59 Intake Total 2650 3240 3507.333 670 Output Total 700 1125 700 401 Balance 1950 0655 2807.333 269 - Objective General Appearance: positive: No acute distress, Alert, Other (gurgling voice, no cough no dyspnea and able to complete sentences) Eyes Bilateral: positive: PERRL, EOMI ENT: positive: Other (postnasal drip) Neck: positive: No JVD. negative: Stiff neck Respiratory: positive: No respiratory distress, Rhonchi (but upper lungs and base of throat) Cardiovascular: positive: Regular rate & rhythm. negative: JVD present, Gallop/S4 Abdomen: positive: Non-tender, No organomegaly, Nml bowel sounds, No distention Skin: positive: Warm, Other (sallow, greyish skin tones since admission, he looks ill) Extremities: positive: Full ROM, Pedal edema (much less present since yesteday) Neurologic/Psychiatric: positive: Oriented x3, CN's nml (2-12), Motor nml - Lab Results Fish Bones: 11/21/21 06:13 11/21/21 06:13 Other Labs: Lab Results x24hrs 11/21/21 11/21/21 11/21/21 Range/Units 06:13 06:13 06:13 WBC 4.7 L (4.8-10.8) x10^3/uL RBC 3.16 L (4.70-6.10) 10^6/uL Hgb 9.6 L (14.0-18.0) g/dL Hct 30.7 L (42.0-52.0) % MCV 97.2 H (80.0-94.0) fL MCH 30.4 (27.0-31.0) pg MCHC 31.3 L (32.0-36.0) g/dL RDW 13.8 (12.0-15.0) % Plt Count 109 L (130-450) 10^3/uL MPV 9.6 (7.4-11.4) fL Neut # (Auto) 3.4 (1.5-6.6) 10^3/uL Lymph # (Auto) 0.9 L (1.5-3.5) 10^3/uL [place] # (Auto) 0.4 (0.0-1.0) 10^3/uL Eos # (Auto) 0.0 (0.0-0.7) 10^3/uL Baso # (Auto) 0.0 (0.0-0.1) 10^3/uL Absolute Nucleated RBC 0.00 x10^3/uL Nucleated RBC % 0.0 /100WBC Sodium 142 (135-145) mmol/L Potassium 3.4 L (3.5-5.0) mmol/L Chloride 108 (101-111) mmol/L Carbon Dioxide 26 (21-32) mmol/L Anion Gap 8.0 (6-13) BUN 38 H (6-20) mg/dL Creatinine 2.1 H (0.6-1.2) mg/dL Estimated GFR (MDRD) 31 L (>89) Glucose 98 (70-100) mg/dL Calcium 7.7 L (8.5-10.3) mg/dL Magnesium 1.9 (1.7-2.8) mg/dL B-Natriuretic Peptide 712 H (5-100) pg/mL ABX Reporting Has patient been on IV antibiotics over the past 48 hours?: Yes Assessment/Plan - Problem List (1) E coli bacteremia Impression: These blood cultures were done in the emergency room when he presented as ostensible "pneumonia". I still feel that this patient's main problem is congestive heart failure and not pneumonia. Clinically he did not have an joe vated white cell count nor did he have a fever nor did he have a new cough or new phlegm. He does have significant symptoms of prostatism. Urinalysis had a dark, foul smell but it is contaminated according to review. As such culture will not be helpful. I will treat him as a UTI with bacteremia. Plan: Levaquin day #4. Plan on treating for 2 to 4 weeks depending on my evaluation of his prostate.He has reduced renal function. So he is on Levaquin 750 mg every other day. (2) Acute on chronic diastolic CHF (congestive heart failure) Impression: His story on admission was that of progressive shortness of breath that was subtle and worsening for over a year. He sees the [facility] in [place] once a year to be able to access [facility]. He is 100% service-connected. But he gets his regular follow-up care with a local provider several times a year. He has been on "a list" to see nephrology, cardiology. But he has not been able to get in. In an effort to quantify his shortness of breath I am suggesting that he gets an outpatient work-up from pulmonology with pulmonary function studies. I started the work-up here with nuclear medicine stress testing 11/18. He has a large fixed defect in the anterior wall. No reversible defects. And he has an ejection fraction of 40%. 11/19 20 minutes was spent discussing cardiac anatomy and what this means for him. I have described that he will need to go on a beta-jessica, diuretic, and ARB/ANGEL. Today he has no questions about this. He is on all 3 right now. Blood pressure is very between 120 systolic to 137 systolic today. So he is tolerating his medications. Weight in April 2015 was 110.5 kg. In May 2021 it was 112 kg. It was 124 kg on admission and today he is 112. Leg edema much better today and he is pleased. Plan: Echocardiogram in the outpatient setting when he can get it. Pulmonology consult with pulmonary function studies. Lasix will be daily, lisinopril 5 mg started 11/19, I started metoprolol 11/18. duoneb To continue steroids x 3 doses IV Completed daily weights show improvment and will continue to monitor low salt diet With the excellent weight loss and sob improved, change to po meds today and if does well dc in am. (3) Pneumonia involving left lung Impression: Conclusion/Plan: Not presenting as significant infection but ER feels this is his primary diagnosis. He denies fever, chills, change in phlegm production. WBC normal. His main complaint is generalized weakness. There is no fever, chills. Never theless there was objective findings of pneumonia and he was treated with Rocephin and azithromycin. 11/18 afternoon when he developed E. coli bacteremia, I switched his antibiotics. To treat his left lung as well as the E. coli bacteremia, I have switched him over to Levaquin. Status post Rocephin and azithromycin, 2 days Levaquin day #4. He has reduced renal function. So he is on Levaquin 750 mg every other day. Plan: Pneumonia will need to be treated for about 5 days at most. However the E. coli bacteremia may be treated a little bit longer. Qualifiers: Pneumonia type: due to unspecified organism Lung location: lower lobe of christina ng Qualified Code(s): J18.9 - Pneumonia, unspecified organism (4) Dehydration resolved. Conclusion/Plan: He tells me that he has chronic kidney disease. Has had it for decades. He saw [facility] years ago. In the last year he has been trying to get into see nephrology but has never made it into an appointment because he keeps on remaining on "a list". He states that he is interested in dialysis if he ever p rogresses to that severity of illness. A long advance care planning conversation ensued. Please refer to that detailed note under separate dictation 11/19 (5) Fall at home Conclusion/Plan: It is a mechanical fall. There is no syncope. He does not have any history of aortic stenosis. No history of arrhythmia. I will take this at face value that it was a simple episode of weakness caused him to go to the floor and then have to lay down. CT of head is negative. Qualifiers: Encounter type: initial encounter Qualified Code(s): W19.XXXA - Unspecified fall, initial encounter; Y92.009 - Unspecified place in unspecified non- institutional (private) residence as the place of occurrence of the external cause (6) Generalized weakness Conclusion/Plan: While he is being ostensibly admitted for pneumonia, and that is our concern, his concern is his generalized weakness. It is nonspecific. But leading to decreased endurance, increasing shortness of breath. His history is indicative of possible worsening coronary artery disease, and anemia that is macrocytic in a person who is not an alcoholic, elevated liver enzymes indicating possible liver disease/passive congestion/cirrhosis, new congestive heart failure, worsening kidney function in a patient who takes allopurinol and has BPH. I have been addressing all of these problems individually. Medicine stress test shows an ejection fraction of 40% with a large fixed defect in the anterior wall, but I cannot order echocardiogram since is not available here. Physical therapy started working with him 11/19 and states that he is actually more mobile than he describes. He describes himself as slow but physical therapy says that he is actually quite quick and too impulsive. He does not want to use a walker, does not want to use a cane. He is deconditioned and can use some strengthening exercises. They will continue to work with him while he is here. Other than occasional right knee pain, the patient is doing well. Per physical therapy notes 11/20: The pt received 25 minutes of skilled PT today, this was focused on education and discussion of safe mobility into and around his home upon DC. Pt demonstrates improved safety and balance using FWW during PT today, able to amb x30' with step through gait pattern and no LOB. Pt instructed in home exercise program and educated on energy conservation. Pt has handout with hep information; pt is agreeable to work with HHPT/OT to improve his indep and mobility. At the end of the session the pt was sitting up in bedside chair with all needs met, chair alarm set, tray table and call light in reach. When medically stable recommend DC home via POV with HHPT/OT to improve his functional indep. He has not been happy about the idea of having physical therapy. He gets impatient with him and feels that he can just do it on his own. Today he agrees to having home health physical therapy see him when he gets discharged. I will make that order today. (6) Hypokalemia resolved Conclusion/Plan: after 2 days of supplementation. continue to monitor (7) Hypomagnesemia resolved Conclusion/Plan: after 2 days of supplementation. continue to monitor (8) BPH (benign prostatic hyperplasia) Conclusion/Plan: US shows him to have retained kidney stones that are nonobstructing. He does not have hydro-. His bladder is not dilated. He does have a large prostate. PSA is normal. In order to make sure he does not hyperparathyroidism causing his stones, I am checking a PTH. Was drawn November 20 and results are pending. For his benign prostatic hypertrophy he is on alpha med+flomax Qualifiers: Lower urinary tract symptom presence: symptoms present (9) Hx of gout Conclusion/Plan: reduce allopurinol dose. I Have skipped his allopurinol while he is here. (10) Dysuria Conclusion/Plan: Urinalysis was indicative of infection. He is ended up having gram-negative bacteremia. But the urine culture is a contaminated culture and is not clinically significant for me. (11) Elevated liver enzymes Conclusion/Plan: he is stoutly maintaining that he is NOT a drinker so he denies alcoholism as an issue. He may have right sided failure. On ultrasound he has a fatty liver. Hepatitis panel is negative. KARISHMA is negative. (12) Macrocytic anemia Conclusion/Plan: He does not have hemolysis. Ferritin is normal. Ceruloplasmin is normal. Vitamin B12 is normal. TSH is normal. I would venture to say that he most l ikely has anemia of chronic disease because of his chronic kidney disease, however the macrocytosis is worrisome. I would recommend that he be seen by oncology to investigate the macrocytosis.
[2021-11-21] MEDS: FUROSEMIDE 20 MG TABLET PO SCH (14:22)
[2021-11-21] MEDS: POTASSIUM CHLORIDE 20 MEQ TABLET PO SCH (15:37)
[2021-11-21] MEDS: TAMSULOSIN 0.4 MG CAPSULE PO SCH (21:02)
[2021-11-22] MEDS: SODIUM CHLORIDE FLUSH 0.9% 10 ML SYRINGE IVP SCH ×4 (00:07→23:51)
[2021-11-22] MEDS: FUROSEMIDE 20 MG TABLET PO SCH ×2 (05:59→13:19)
[2021-11-22] MEDS: allopurinoL 100 MG TABLET PO SCH (09:30)
[2021-11-22] MEDS: ASPIRIN CHEW 81 MG TABLET PO SCH (09:30)
[2021-11-22] MEDS: SACCHAROMYCES BOULARDII 250 MG CAPSULE PO SCH ×2 (09:30→16:57)
[2021-11-22] MEDS: POTASSIUM CHLORIDE 20 MEQ TABLET PO SCH (09:30)
[2021-11-22] MEDS: ATORVASTATIN 40 MG TABLET PO SCH (09:31)
[2021-11-22] MEDS: METOPROLOL SUCCINATE 50 MG TABLET PO SCH ×2 (09:31→21:39)
[2021-11-22] MEDS: lisinopriL 5 MG TABLET PO SCH (09:31)
[2021-11-22] MEDS: CHOLECALCIFEROL 25 MCG TABLET PO SCH (09:31)
--- NOTE | 2021-11-22 13:45 | PROVIDER PROGRESS NOTE ---
Subjective - Prog Note Date Prog Note Date: 11/22/21 Prog Note Time: 13:43 - Subjective Pt reports feeling: Improved Subjective: he is still having slight cough but overall much better than admission with less edema, less mcbride. I changed him to po lasix yesterday and he has notice less urine output with this already. Current Medications - Current Medications Current Medications: Active Medications Acetaminophen (Acetaminophen 325 Mg Tablet) 650 mg PO Q4HR PRN PRN Reason: Pain 1 to 4, or Fever Albuterol/Ipratropium (Ipratropium/Albuterol 3 Ml Neb) 3 ml INH RTQID PRN PRN Reason: Wheezing Allopurinol (Allopurinol 100 Mg Tablet) 100 mg PO DAILY [facility] Last Admin: 11/22/21 09:30 Dose: 100 mg Aspirin (Aspirin Chew 81 Mg Tablet) 81 mg PO DAILY [facility] Last Admin: 11/22/21 09:30 Dose: 81 mg Atorvastatin Calcium (Atorvastatin 40 Mg Tablet) 40 mg PO DAILY [facility] Last Admin: 11/22/21 09:31 Dose: 40 mg Cholecalciferol (Cholecalciferol 25 Mcg Tablet) 50 mcg PO DAILY [facility] Last Admin: 11/22/21 09:31 Dose: 50 mcg Furosemide (Furosemide 20 Mg Tablet) 20 mg PO BIDDIURETIC [facility] Last Admin: 11/22/21 13:19 Dose: 20 mg Sodium Chloride (Normal Saline 0.9%) 1,000 mls @ 0 mls/hr IV .Q0M [facility] Levofloxacin (Levofloxacin 250 Mg Tablet) 750 mg PO Q48H [facility] Last Admin: 11/20/21 16:12 Dose: 750 mg Lisinopril (Lisinopril 5 Mg Tablet) 5 mg PO DAILY [facility] Last Admin: 11/22/21 09:31 Dose: 5 mg Metoprolol Succinate (Metoprolol Succinate 50 Mg Tablet) 50 mg PO BID [facility] Last Admin: 11/22/21 09:31 Dose: 50 mg Ondansetron HCl (Ondansetron Odt 4 Mg Tablet) 4 mg TL Q6HR PRN PRN Reason: Nausea / Vomiting Ondansetron HCl (Ondansetron 4 Mg/2 Ml Vial) 4 mg IVP Q6HR PRN PRN Reason: Nausea / Vomiting Oxycodone HCl (Oxycodone 5 Mg Tablet) 5 mg PO Q4HR PRN PRN Reason: Pain 5 to 7 Potassium Chloride (Potassium Chloride 20 Meq Tablet) 20 meq PO DAILYWM [facility] Last Admin: 11/22/21 09:30 Dose: 20 meq Prochlorperazine Edisylate (Prochlorperazine 10 Mg/2 Ml Vial) 10 mg IVP Q6HR PRN PRN Reason: Nausea / Vomiting Saccharomyces Boulardii (Saccharomyces Boulardii 250 Mg Capsule) 250 mg PO BIDWM [facility] Last Admin: 11/22/21 09:30 Dose: 250 mg Sodium Chloride (Sodium Chloride Flush 0.9% 10 Ml Syringe) 10 ml IVP PRN PRN PRN Reason: NEEDED PER PROVIDER ORDERS Sodium Chloride (Sodium Chloride Flush 0.9% 10 Ml Syringe) 10 ml IVP 0100,0900,1700 [facility] Last Admin: 11/22/21 09:31 Dose: 10 ml Tamsulosin HCl (Tamsulosin 0.4 Mg Capsule) 0.4 mg PO QPM [facility] Last Admin: 11/21/21 21:02 Dose: 0.4 mg Alfuzosin HCl [Alfuzosin HCl ER] 10 mg PO DAILY 04/15/15 Cholecalciferol (Vitamin D3) [Vitamin D3] 2 cap PO DAILY 04/15/15 Isosorbide Mononitrate [Isosorbide Mononitrate ER] 60 mg PO DAILY 04/15/15 Metoprolol Succinate [Toprol Xl] 50 mg PO BID 04/15/15 Omeprazole 2 tab PO DAILY 04/15/15 allopurinoL [Allopurinol] 100 mg PO BID 04/15/15 Atorvastatin Calcium 40 mg PO DAILY 05/26/21 Objective - Vital Signs/Intake & Output Reviewed Vital Signs: Yes Vital Signs: Vital Signs x48h Temp Pulse Resp BP Pulse Ox 11/22/21 09:25 122/65 11/22/21 07:48 36.3 C L 62 20 126/71 97 Intake & Output: Intake & Output 11/19/21 11/20/21 11/21/21 11/22/21 23:59 23:59 23:59 23:59 Intake Total 3240 3507.333 2562.267 8903 Output Total 1034 591 7183 1050 Balance 2115 2807.333 -585.333 430 - Objective General Appearance: positive: No acute distress, Alert, Other (sitting up in chair w legs up, SCD on) Eyes Bilateral: positive: PERRL, EOMI ENT: positive: Pharynx nml Neck: positive: No JVD. negative: Stiff neck Respiratory: positive: No respiratory distress, Rales (right lung base > left.), Rhonchi (the gurgling that was audible w/o stethescope is not heard today until you listen w/stethescope. still gurgling but improved), Other (dull right lung base too. less sounds than Left). negative: Wheezes Cardiovascular: positive: Regular rate & rhythm. negative: Gallop/S4, Friction rub Abdomen: positive: Non-tender, No organomegaly, Nml bowel sounds, Other (large abd panus) Skin: positive: Warm, Dry, Pallor Extremities: positive: Full ROM, Pedal edema (but much much improved from admit) Neurologic/Psychiatric: positive: Oriented x3, CN's nml (2-12), Motor nml, Sensation nml - Lab Results Fish Bones: 11/21/21 06:13 11/21/21 06:13 Other Labs: Lab Results x24hrs 11/22/21 Range/Units 04:08 Magnesium 1.7 (1.7-2.8) mg/dL ABX Reporting Has patient been on IV antibiotics over the past 48 hours?: Yes Assessment/Plan - Problem List (1) E coli bacteremia Impression: These blood cultures were done in the emergency room when he presented as ostensible "pneumonia". I still feel that this patient's main problem is congestive heart failure and not pneumonia. Clinically he did not have an elevated white cell count nor did he have a fever nor did he have a new cough or new phlegm to indicate he had pneumonia. He does have significant symptoms of prostatism. Urinalysis had a dark, foul smell but it is contaminated according to review. As such culture will not be helpful. I will treat him as a UTI with bacteremia. Plan: Levaquin day #5 (started IV 11/18/21 and changed to po). Plan on treating for 2 to 4 weeks depending on my evaluation of his prostate.He has reduced renal fun ction. So he is on Levaquin 750 mg every other day. (2) Acute on chronic diastolic CHF (congestive heart failure) Impression: His story on admission was that of progressive shortness of breath that was subtle and worsening for over a year. He sees the [facility] in [place] once a year to be able to access [facility]. He is 100% service-connected. But he gets his regular follow-up care with a local provider several times a year. He has been on "a list" to see nephrology, cardiology. But he has not been able to get in. In an effort to quantify his shortness of breath I am suggesting that he gets an outpatient work-up from pulmonology with pulmonary function studies. I started the work-up here with nuclear medicine stress testing 11/18. He has a large fixed defect in the anterior wall. No reversible defects. And he has an ejection fraction of 40%. 11/19 20 minutes was spent discussing cardiac anatomy and what this means for him. I have described that he will need to go on a beta-jessica, diuretic, and ARB/ANGEL. He is on all 3 right now. Blood pressure shows him to be consistently with a systolic of 120s-130's. So he is tolerating his medications. Weight in April 2015 was 110.5 kg. In May 2021 it was 112 kg. It was 124 kg on admission and today he is 112. Leg edema much better since 11/21/21 and he is pleased. Overall his exam is improved and that he was having audible gurgling that I could hear even without a stethoscope. Today's the first I am having to use a stethoscope to hear his gurgling and crackles. So he has improved. But still with crackles at the bases more than I would like. Plan: Echocardiogram in the outpatient setting when he can get it. Pulmonology consult with pulmonary function studies. Lasix will be daily and changed to po, lisinopril 5 mg started 11/19, I started metoprolol 11/18. duoneb To continue steroids x 3 doses IV Completed daily weights show improvment and will continue to monitor low salt diet With the excellent weight loss and sob improved, but still with crackles today. DC tomorrow. (3) Pneumonia involving left lung Impression: Conclusion/Plan: Not presenting as significant infection but ER feels this is his primary diagnosis. He denies fever, chills, change in phlegm production. WBC normal. His main complaint is generalized weakness. There is no fever, chills. Nevertheless there was objective findings of pneumonia and he was treated with Rocephin and azithromycin. 11/18 afternoon when he developed E. coli bacteremia, I switched his antibiotics. To treat his left lung as well as the E. coli bacteremia, I have switched him over to Levaquin. Status post Rocephin and azithromycin, 2 days Levaquin day #5. He has reduced renal function. So he is on Levaquin 750 mg every other day. Plan: Pneumonia will need to be treated for about 5 days at most. However the E. coli bacteremia may be treated a little bit longer. Qualifiers: Pneumonia type: due to unspecified organism Lung location: lower lobe of lung Qualified Code(s): J18.9 - Pneumonia, unspecified organism (4) Dehydration resolved. Conclusion/Plan: He tells me that he has chronic kidney disease. Has had it for decades. He saw seals engraver years ago. In the last year he has been trying to get into see nephrology but has never made it into an appointment because he keeps on remaining on "a list". He states that he is interested in dialysis if he ever progresses to that severity of illness. A long advance care planning conversation ensued. Please refer to that detailed note under separate dictation 11/19 (5) Fall at home Conclusion/Plan: It is a mechanical fall. There is no syncope. He does not have any history of aortic stenosis. No history of arrhythmia. I will take this at face value that it was a simple episode of weakness caused him to go to the floor and then have to lay down. CT of head is negative. Qualifiers: Encounter type: initial encounter Qualified Code(s): W19.XXXA - Unspecified fall, initial encounter; Y92.009 - Unspecified place in unspecified non- institutional (private) residence as the place of occurrence of the external cause (6) Generalized weakness Conclusion/Plan: While he is being ostensibly admitted for pneumonia, and that is our concern, his concern is his generalized weakness. It is nonspecific. But leading to decreased endurance, increasing shortness of breath. His history is indicative of possible worsening coronary artery disease, and anemia that is macrocytic in a person who is not an alcoholic, elevated liver enzymes indicating possible liver disease/passive congestion/cirrhosis, new congestive heart failure, worsening kidney function in a patient who takes allopurinol and has BPH. I have been addressing all of these problems individually. Medicine stress test shows an ejection fraction of 40% with a large fixed defect in the anterior wall, but I cannot order echocardiogram since is not available here. Physical therapy started working with him 11/19 and states that he is actually more mobile than he describes. He describes himself as slow but physical therapy says that he is actually quite quick and too impulsive. He does not want to use a walker, does not want to use a cane. He is deconditioned and can use some strengthening exercises. They will continue to work with him while he is here. Other than occasional right knee pain, the patient is doing well. Per physical therapy notes 11/20: The pt received 25 minutes of skilled PT today, this was focused on education and discussion of safe mobility into and around his home upon DC. Pt demonstrates improved safety and balance using FWW during PT today, able to amb x30' with step through gait pattern and no LOB. Pt instructed in home exercise program and educated on energy conservation. Pt has handout with hep information; pt is agreeable to work with HHPT/OT to improve his indep and mobility. At the end of the session the pt was sitting up in bedside chair with all needs met, chair alarm set, tray table and call light in reach. When medically stable recommend DC home via POV with HHPT/OT to improve his func tional indep. He has not been happy about the idea of having physical therapy. He gets impatient with him and feels that he can just do it on his own. But he has been working wiht PT and is improving. Willing to go home with PT and I have ordered HH. (6) Hypokalemia resolved Conclusion/Plan: after 2 days of supplementation. continue to monitor (7) Hypomagnesemia resolved Conclusion/Plan: after 2 days of supplementation. continue to monitor (8) BPH (benign prostatic hyperplasia) Conclusion/Plan: US shows him to have retained kidney stones that are nonobstructing. He does not have hydro-. His bladder is not dilated. He does have a large prostate. PSA is normal. In order to make sure he does not hyperparathyroidism causing his stones, I am checking a PTH level. Was drawn November 20 and results are pending today. For his benign prostatic hypertrophy he is on alpha med+flomax Qualifiers: Lower urinary tract symptom presence: symptoms present (9) Hx of gout Conclusion/Plan: reduce allopurinol dose. I Have skipped his allopurinol while he is here. Consider holding it indef bc of renal function. Discuss w his PCP if he should resume it in the outpatient setting. (10) Dysuria Conclusion/Plan: Urinalysis was indicative of infection. He is ended up having gram-negative bacteremia. But the urine culture is a contaminated culture and is not clinically significant for me. (11) Elevated liver enzymes Conclusion/Plan: he is stoutly maintaining that he is NOT a drinker so he denies alcoholism as an issue. He may have right sided failure. On ultrasound he has a fatty liver. Hepatitis panel is negative. KARISHMA is negative. (12) Macrocytic anemia Conclusion/Plan: He does not have hemolysis. Ferritin is normal. Ceruloplasmin is normal. Vitamin B12 is normal. TSH is normal. I would venture to say that he most likely has anemia of chronic disease because of his chronic kidney disease, however the macrocytosis is worrisome. I would recommend that he be seen by oncology to investigate the macrocytosis.
[2021-11-22] MEDS: levoFLOXacin 250 MG TABLET PO SCH (16:47)
[2021-11-22] MEDS: TAMSULOSIN 0.4 MG CAPSULE PO SCH (21:39)
[2021-11-23] MEDS: FUROSEMIDE 20 MG TABLET PO SCH ×2 (05:28→13:44)
[2021-11-23] MEDS ORDERED: MAGNESIUM SULFATE 2 GRAM 2 GM/50 ML BAG IV ONE (07:41)
--- NOTE | 2021-11-23 07:42 | PROVIDER PROGRESS NOTE ---
Assessment/Plan - Current Meds Current Meds: Current Medications Generic Name Dose Route Start Last Admin Trade Name Pia PRN Reason Stop Dose Admin Allopurinol 100 mg 11/21/21 09:00 11/22/21 09:30 Allopurinol 100 Mg Tablet PO 100 mg DAILY [facility] Administration Aspirin 81 mg 11/19/21 09:00 11/22/21 09:30 Aspirin Chew 81 Mg Tablet PO 81 mg DAILY [facility] Administration Atorvastatin Calcium 40 mg 11/19/21 09:00 11/22/21 09:31 Atorvastatin 40 Mg Tablet PO 40 mg DAILY [facility] Administration Cholecalciferol 50 mcg 11/19/21 09:00 11/22/21 09:31 Cholecalciferol 25 Mcg Tablet PO 50 mcg DAILY [facility] Administration Furosemide 20 mg 11/21/21 14:00 11/23/21 05:28 Furosemide 20 Mg Tablet PO 20 mg BIDDIURETIC [facility] Administration Levofloxacin 750 mg 11/20/21 16:00 11/22/21 16:47 Levofloxacin 250 Mg Tablet PO 750 mg Q48H [facility] Administration Lisinopril 5 mg 11/18/21 11:00 11/22/21 09:31 Lisinopril 5 Mg Tablet PO 5 mg DAILY [facility] Administration Metoprolol Succinate 50 mg 11/18/21 21:00 11/22/21 21:39 Metoprolol Succinate 50 Mg Tablet PO 50 mg BID [facility] Administration Potassium Chloride 20 meq 11/21/21 15:00 11/22/21 09:30 Potassium Chloride 20 Meq Tablet PO 20 meq DAILYWM [facility] Administration Saccharomyces Boulardii 250 mg 11/18/21 17:00 11/22/21 16:57 Saccharomyces Boulardii 250 Mg Capsule PO 250 mg BIDWM [facility] Administration Sodium Chloride 10 ml 11/18/21 09:00 11/22/21 23:51 Sodium Chloride Flush 0.9% 10 Ml Syringe IVP 10 ml 0100,0900,1700 [facility] Administration Tamsulosin HCl 0.4 mg 11/19/21 21:00 11/22/21 21:39 Tamsulosin 0.4 Mg Capsule PO 0.4 mg QPM [facility] Administration - Lab Result Fish Bone Diagrams: 11/21/21 06:13 11/21/21 06:13 - Additional Planning My Orders: My Active Orders 11/23/21 07:39 BMP - BASIC METABOLIC PANEL [CHEM] Stat CBC - COMP BLD CT W/AUTO DIFF [HEME] Stat 11/23/21 07:40 BNP - B-NATRIURETIC PEPTIDE [IAI] Stat 11/23/21 07:41 MAGNESIUM SULFATE 2 GRAMS IV X1 Magnesium Sulfate 2 Gram [Magnesium Sulfate] 2 gm in 50 ml IV ONCE 11/24/21 05:00 BMP - BASIC METABOLIC PANEL [CHEM] DAILYLAB BNP - B-NATRIURETIC PEPTIDE [IAI] DAILYLAB CBC - COMP BLD CT W/AUTO DIFF [HEME] DAILYLAB Objective Vital Signs: Vital Signs - 24 hr 11/22/21 11/22/21 11/22/21 07:48 09:25 15:34 Temperature 36.3 C L 36.4 C L Heart Rate [ 62 55 L Brachial] Respiratory 20 24 Rate Blood Pressure 126/71 122/65 132/68 H [Right Brachial artery] O2 Saturation 97 98 11/22/21 23:31 Temperature 36.3 C L Heart Rate [ 63 Brachial] Respiratory 24 Rate Blood Pressure 123/68 [Right Brachial artery] O2 Saturation 96 Oxygen O2 Source Room air Oxygen Flow Rate 2 I&O (Last 24 Hrs): Intake and Output Totals x24h 11/21/21 11/22/21 11/23/21 23:59 23:59 23:59 Intake Total 6204.235 2466 Output Total 7851 0300 1100 Balance -585.333 -852 -1100 - Results Results: Laboratory Results WBC 4.7 x10^3/uL (4.8-10.8) L 11/21/21 06:13 RBC 3.16 10^6/uL (4.70-6.10) L 11/21/21 06:13 Hgb 9.6 g/dL (14.0-18.0) L 11/21/21 06:13 Hct 30.7 % (42.0-52.0) L 11/21/21 06:13 MCV 97.2 fL (80.0-94.0) H 11/21/21 06:13 MCH 30.4 pg (27.0-31.0) 11/21/21 06:13 MCHC 31.3 g/dL (32.0-36.0) L 11/21/21 06:13 RDW 13.8 % (12.0-15.0) 11/21/21 06:13 Plt Count 109 10^3/uL (130-450) L 11/21/21 06:13 MPV 9.6 fL (7.4-11.4) 11/21/21 06:13 Reticulocyte % (Auto) 2.42 % (0.5-2.3) H 11/18/21 10:45 Neut # (Auto) 3.4 10^3/uL (1.5-6.6) 11/21/21 06:13 Lymph # (Auto) 0.9 10^3/uL (1.5-3.5) L 11/21/21 06:13 Mccone # (Auto) 0.4 10^3/uL (0.0-1.0) 11/21/21 06:13 Eos # (Auto) 0.0 10^3/uL (0.0-0.7) 11/21/21 06:13 Baso # (Auto) 0.0 10^3/uL (0.0-0.1) 11/21/21 06:13 Absolute Nucleated RBC 0.00 x10^3/uL 11/21/21 06:13 Nucleated RBC % 0.0 /100WBC 11/21/21 06:13 Absolute Retic 0.075 10^6/uL (0.020-0.110) 11/18/21 10:45 Sodium 142 mmol/L (135-145) 11/21/21 06:13 Potassium 3.4 mmol/L (3.5-5.0) L 11/21/21 06:13 Chloride 108 mmol/L (101-111) 11/21/21 06:13 Carbon Dioxide 26 mmol/L (21-32) 11/21/21 06:13 Anion Gap 8.0 (6-13) 11/21/21 06:13 BUN 38 mg/dL (6-20) H 11/21/21 06:13 Creatinine 2.1 mg/dL (0.6-1.2) H 11/21/21 06:13 Estimated GFR (MDRD) 31 (>89) L 11/21/21 06:13 Glucose 98 mg/dL (70-100) 11/21/21 06:13 Lactic Acid 1.5 mmol/L (0.5-2.2) 11/18/21 01:00 Calcium 7.7 mg/dL (8.5-10.3) L 11/21/21 06:13 Magnesium 1.7 mg/dL (1.7-2.8) 11/22/21 04:08 Iron 9 ug/dL (45-182) L 11/18/21 10:45 TIBC 176 ug/dL (250-450) L 11/18/21 10:45 % Saturation 5 % (20-50) L 11/18/21 10:45 Transferrin 126 mg/dL (180-329) L 11/18/21 10:45 Total Bilirubin 2.5 mg/dL (0.2-1.0) H 11/18/21 01:00 Ferritin 112.9 ng/mL (23.9-336.2) 11/18/21 10:45 AST 19 IU/L (10-42) 11/18/21 01:00 ALT 13 IU/L (10-60) 11/18/21 01:00 Alkaline Phosphatase 98 IU/L (42-121) 11/18/21 01:00 Lactate Dehydrogenase 159 IU/L (91-225) 11/18/21 10:45 Total Creatine Kinase 157 IU/L (22-269) 11/18/21 01:00 Troponin I High Sens 88.3 ng/L (2.3-19.7) H* 11/18/21 03:02 Total Protein 5.8 g/dL (6.7-8.2) L 11/18/21 01:00 B-Natriuretic Peptide 712 pg/mL (5-100) H 11/21/21 06:13 Albumin 3.0 g/dL (3.2-5.5) L 11/18/21 01:00 Globulin 2.8 g/dL (2.1-4.2) 11/18/21 01:00 Albumin/Globulin Ratio 1.1 (1.0-2.2) 11/18/21 01:00 Ceruloplasmin 22.0 mg/dL (16.0-31.0) 11/18/21 10:45 Lipase 23 U/L (22-51) 11/18/21 01:00 Prostate Specific Ag 1.670 ng/mL (0.000-2.000) 11/20/21 11:36 Free PSA 0.270 ng/mL (0.16-2.81) 11/20/21 11:36 % Free PSA Calc 16 % (25-100) L 11/20/21 11:36 Vitamin B12 456 pg/mL (180-914) 11/18/21 10:45 TSH 1.70 uIU/mL (0.34-5.60) 11/18/21 10:45 Urine Color BROWN 11/18/21 11:02 Urine Clarity CLOUDY (CLEAR) 11/18/21 11:02 Urine pH 6.0 PH (5.0-7.5) 11/18/21 11:02 Ur Specific [place] 1.020 (1.002-1.030) 11/18/21 11:02 Urine Protein 100 mg/dL (NEGATIVE) H 11/18/21 11:02 Urine Glucose (UA) NEGATIVE mg/dL (NEGATIVE) 11/18/21 11:02 Urine Ketones NEGATIVE mg/dL (NEGATIVE) 11/18/21 11:02 Urine Occult Blood LARGE (NEGATIVE) H 11/18/21 11:02 Urine Nitrite POSITIVE (NEGATIVE) H 11/18/21 11:02 Urine Bilirubin NEGATIVE (NEGATIVE) 11/18/21 11:02 Urine Urobilinogen 0.2 (NORMAL) E.U./dL (NORMAL) 11/18/21 11:02 Ur Leukocyte Esterase SMALL (NEGATIVE) H 11/18/21 11:02 Urine RBC TNTC /HPF (0-5) H 11/18/21 11:02 Urine WBC >25 /HPF (0-3) H 11/18/21 11:02 Ur Squamous Epith Cells NONE SEEN (<= Few) 11/18/21 11:02 Urine Bacteria Few /HPF (None Seen) 11/18/21 11:02 Ur Microscopic Review INDICATED 11/18/21 11:02 Urine Culture Comments INDICATED 11/18/21 11:02 KARISHMA Interpretation Comment (.) 11/18/21 10:45 Anti-sm/ANIMAL CARE ATTENDANT Abs <0.2 AI (0.0-0.9) 11/18/21 10:45 POLLO-1 Antibody <0.2 AI (0.0-0.9) 11/18/21 10:45 SS-A/Ro Antibody <0.2 AI (0.0-0.9) 11/18/21 10:45 SS-B/La Antibody <0.2 AI (0.0-0.9) 11/18/21 10:45 Sm (Stout) Antibody <0.2 AI (0.0-0.9) 11/18/21 10:45 ANIMAL CARE ATTENDANT Antibody <0.2 AI (0.0-0.9) 11/18/21 10:45 Scl-70 Scleroderma Ab <0.2 AI (0.0-0.9) 11/18/21 10:45 Double Strand DNA Ab <1 IU/mL (0-9) 11/18/21 10:45 Ribosomal P Prot Ab <0.2 AI (0.0-0.9) 11/18/21 10:45 Chromatin Antibody <0.2 AI (0.0-0.9) 11/18/21 10:45 Centromere B Antibody <0.2 AI (0.0-0.9) 11/18/21 10:45 Hepatitis A IgM Ab Negative (Negative) 11/18/21 10:45 Hep Bs Antigen Negative (Negative) 11/18/21 10:45 Hep B Core IgM Ab Negative (Negative) 11/18/21 10:45 Hepatitis C Antibody <0.1 s/co ratio (0.0-0.9) 11/18/21 10:45 SARS-CoV-2 (PCR) NOT DETECTED 11/18/21 00:35 - Procedures Procedures: Procedures CATARAC PHACOEMULS/ASPIR (04/15/15) INSERT LENS AT CATAR EXT (04/15/15) REPLACEMENT OF RIGHT LENS WITH SYNTH SUB, PERC APPROACH (05/06/15)
[2021-11-23] MEDS ORDERED: MAGNESIUM OXIDE 400 MG TABLET PO SCH (08:00)
[2021-11-23 08:03] LABS: CALCIUM 7.9 mg/dL (8.5-10.3); CREATININE 2.1 mg/dL (0.6-1.2); POTASSIUM 3.4 mmol/L (3.5-5.0)
[2021-11-23 08:08] LABS: BASOPHILS % (AUTO) 0.2 %; EOSINOPHILS # (AUTO) 0.1 10^3/uL (0.0-0.7); HCT - HEMATOCRIT 32.7 % (42.0-52.0); HGB - HEMOGLOBIN 10.6 g/dL (14.0-18.0); LYMPHOCYTES # (AUTO) 1.2 10^3/uL (1.5-3.5); LYMPHOCYTES % (AUTO) 19.4 %; MEAN CORPUSCULAR HEMOGLOBIN 30.8 pg (27.0-31.0); MEAN CORPUSCULAR HGB CONC 32.4 g/dL (32.0-36.0); MEAN CORPUSCULAR VOLUME 95.1 fL (80.0-94.0); MEAN PLATELET VOLUME 9.7 fL (7.4-11.4); MONOCYTES # (AUTO) 0.6 10^3/uL (0.0-1.0); MONOCYTES % (AUTO) 10.4 %; NEUTROPHILS % (AUTO) 67.3 %; PLT - PLATELET COUNT 113 10^3/uL (130-450); RED BLOOD COUNT 3.44 10^6/uL (4.70-6.10); RED CELL DISTRIBUTION WIDTH 13.5 % (12.0-15.0)
[2021-11-23] MEDS: POTASSIUM CHLORIDE 20 MEQ TABLET PO SCH (09:14)
[2021-11-23] MEDS: ASPIRIN CHEW 81 MG TABLET PO SCH (09:14)
[2021-11-23] MEDS: allopurinoL 100 MG TABLET PO SCH (09:15)
[2021-11-23] MEDS: ATORVASTATIN 40 MG TABLET PO SCH (09:15)
[2021-11-23] MEDS: SACCHAROMYCES BOULARDII 250 MG CAPSULE PO SCH (09:15)
[2021-11-23] MEDS: CHOLECALCIFEROL 25 MCG TABLET PO SCH (09:15)
[2021-11-23] MEDS: SODIUM CHLORIDE FLUSH 0.9% 10 ML SYRINGE IVP SCH (09:20)
--- NOTE | 2021-11-23 09:28 | Discharge Plan ---
Discharge Plan Problem Reviewed?: Yes Disposition: Home, Self Care Condition: Stable Prescriptions: levoFLOXacin [Levaquin] 750 mg PO Q48H #5 tablet lisinopriL [Zestril] 5 mg PO DAILY 30 Days #30 tablet Diet: Cardiac Activity Restrictions: Activity as Tolerated Assistance Devices: Walker Instruction Topics: Levofloxacin tablets Health Concerns: You were admitted on 11/18/2021 with chief complaint of weakness for days and fall at home. You were diagnosed with pneumonia. A urinalysis also indicated UTI for which E. coli growing in the blood. You were treated with Levaquin 750 mg every 48 hours. Upon discharge she has been prescribed Levaquin 750 mg p.o. every 2 days to take a total of 5 tablets over a 10-day period. You required IV hydration for treatment of infection. Consequently by the day of discharge your extremities appeared somewhat edematous. However your breathing comfortably on room air. You were also prescribed lisinopril as part of treatment regimen for CHF. You will continue to take your Lasix 20 mg p.o. daily, metoprolol 50 mg p.o. twice daily. You have been advised to watch the amount of salt you consume. You are encouraged to continue ambulating using your walker. PT will continue to see you at home. You may follow-up with your primary care physician as needed. The above plan was discussed with you. You expressed understanding and are agreeable to the plan. You are discharged in stable condition. No Smoking: If you smoke, Please STOP! Call for help.
--- NOTE | 2021-11-23 09:28 | DISCHARGE SUMMARY ---
Discharge Summary Admit Date: 11/18/21 Discharge Date: 11/23/21 Discharging Provider: Alicia Aldanahotu Code Status: Do Not Attempt Resuscitation Condition at Discharge: Stable Discharge Disposition: 01 Home, Self Care - DIAGNOSES Admission Diagnoses: Pneumonia involving left lung Shortness of breath Dehydration Fall at home Generalized weakness Hypokalemia Hypomagnesemia BPH History of gout Dysuria Elevated liver enzymes Macrocytic anemia Discharge Diagnoses with Status of Each Condition: E. coli bacteremia: Acute. Likely secondary to UTI. Patient on Levaquin for a total of 14 days. Acute on chronic diastolic CHF: Stable. Continue home medications. Pneumonia involving left lung: Acute. Patient on Levaquin for a total of 14 days. Shortness of breath: Acute. Likely multifactorial secondary to CHF and possible pneumonia. Improved. Patient breathing comfortably on room air. Discharged with antibiotic of Levaquin. We will also continue home CHF medications Dehydration: Acute. Resolved. Fall at home: Mechanical. Generalized weakness: Likely secondary to pneumonia. Improved. Hypokalemia: Acute. Resolved. Hypomagnesemia: Acute. Improved/resolved. BPH: Chronic. Stable. Continue home medication. History of gout: Chronic. Stable. Continue home medication. Dysuria: Chronic. Likely secondary to BPH. Stable. Continue home medication. Elevated liver enzymes: Acute. Resolved. Macrocytic anemia: Stable. Hemoglobin was 10.6 at time of discharge. - HPI History of Present Illness: Per HPI: This is a pleasant 76-year-old white male who has a history of coronary artery disease with a stent placed in 2011, hypertension, GERD, hyperlipidemia and gout as well as benign prostatic hypertrophy. He is chief complaint is generalized weakness after sliding out of a chair and landing on the floor and being unable to get up. He has been weak and tired for months. He had been hospitalized for diarrhea that he attributes to food poisoning last May 2021. He was hospitalized here. He said he was in the hospital for 3 days and ever since then he has been so weak and tired with dyspnea on exertion. He has daily clear phlegm production. Daily edema. But his edema has actually improved over the last few weeks. He bought himself a foot/leg medical record specialist 2 weeks ago and has been using it faithfully every morning. Cleans his own house, does his own laundry. Drives a car. But is slowed down significantly over the last 2 years during COVID. He pushes through and as long as he does it slowly, he can walk as much as he wants to. What limits him his shortness of breath. In acknowledging his weakness and fatigue and dyspnea on exertion he states that he has been asking for referrals for cardiology or pulmonology for quite some time now. Its been over a year. He has been told that "he is on the list" to get to see specialist but has never had an appointment. No change in cough. denies fever or chills. He does have a history of emphysema and chronic shortness of breath. When I ask why he wants to see specialist, he states that he is just really worried about his shortness of breath. He acknowledges that he has emphysema. He is an ex- smoker. But he just feels that something is going on. His edurance capacity is sharply limited but he pushes through. He still golfs. He drives a golf cart, pulls out the golf clubs from the bag which stays in the cart, walks to the ball, and is able to swing. But his energy is not there. His main fear is that he is progressing with his coronary artery disease and that it is going unchecked. When he had a stent done, he was told that he still has some partial blockages and he worries that they are getting worse. He has not been told that he has CHF. His other problem that is been bothering him is his right knee pain. Is in the medial compartment. He valiantly continues to do his exercises, golfing, going to the [employer], but that right knee hurts. No effusions. No trauma. Hurts with weightbearing and is starting to hurt at rest. He goes to the [employer] about 3 or 4 times a week. Had gone there yesterday as usual. He did not feel that he when he was any weaker than he usually is. Cough is the same. Phlegm production was the same. Edema had improved. He denies any chest pain, palpitations. No arm pain, nausea, diaphoresis. He sat down in his recliner and fell asleep. When he got up from his recliner he had no strength to be able to get up. He lay on the floor for a while until he was finally able to make it to a phone to call EMS. He did not have any blow to the head. He is not on any anticoagulation. Blood pressure was 122/62. Temperature was 37.3. Respirations were 20 but quickly increased to about 35. He was 95% on room air initially at rest. But then dropped to 91 and even 87% on room air within 45 minutes. He then required 2 L nasal cannula to maintain his O2 sats at 100%. On examination in the ER, he was alert and oriented. He had a regular rate and rhythm. He was tachypneic, diminished breath sounds diffusely, rhonchi left side. But no use of accessory muscles and was otherwise clear on his breath sounds. White cell count was 5.3. BUN 28, creatinine newly elevated at 2.3. Lactic acid normal. Magnesium 1.0. Troponin was initially 77.5, and secondary follow-up was 88.3. BNP is elevated at 1277. The emergency room physician feels that even though he may have indications of congestive heart failure by that BNP, she truly feels that his main problem is pneumonia because his chest x-ray shows a left lower lung opacity. Radiology does state that there is cephalization and prominence of central vascular suggesting volume overload or CHF. We are now being asked to place him in inpatient status with the hospitalist service. - HOSPITAL COURSE Hospital Course: Patient underwent stress test on 11/10/21 which showed He has normal left ventricular wall thickening, left ventricular global hypokinesis noted. Left ventricular resting end-diastolic volume is 159 with ejection fraction at 40%. Myocardial perfusion had a large fixed perfusion defect involving the anterior, apical, apical septal and apical lateral gupta. Fixed perfusion defect did not normalize in the prone position it is compatible with an area of prior infarction. No reversible perfusion defects noted. His home medications were optimized to include metoprolol XL 50 mg p.o. twice daily, Lasix 20 mg p.o. daily, lisinopril 5 mg p.o. daily, GENERAL: This is a well-nourished, well-developed patient, in no apparent distress. 60 mg extended release tablet p.o. daily, baby aspirin daily and atorvastatin 40 mg p.o. daily. Blood cultures obtained subsequently grew E. coli which was thought to be secondary to urinary tract infection. Patient was treated with Levaquin 750 mg every 48 hours for a total of 14 days. Electrolytes were replaced during the course of his hospital stay. [facility] a primary care provider with a system in [place]. He has been on the list to see nephrology and cardiology but has not been able to to date. He will need an echocardiogram in the outpatient setting and a pulmonary consult with pulmonary function studies. He was advised to continue a low sodium diet. He was discharged in stable condition. He may follow-up with his primary care physician within 7 to 10 days or as needed. Is expected that his primary care provider will make referrals for follow-up with cardiology, pulmonology and nephrology as needed - ALLERGIES Allergies/Adverse Reactions: Allergies Allergy/AdvReac Type Severity Reaction Status Date / Time No Known Drug Allergies Allergy Verified 11/18/21 00:26 - MEDICATIONS Home Medications: Ambulatory Orders Medication Instructions Recorded Confirmed Alfuzosin HCl [Alfuzosin HCl ER] 10 mg PO DAILY 04/15/15 11/18/21 Cholecalciferol (Vitamin D3) 2 cap PO DAILY 04/15/15 11/18/21 [Vitamin D3] Isosorbide Mononitrate [Isosorbide 60 mg PO DAILY 04/15/15 11/18/21 Mononitrate ER] Metoprolol Succinate [Toprol Xl] 50 mg PO BID 04/15/15 11/18/21 Omeprazole 2 tab PO DAILY 04/15/15 11/18/21 allopurinoL [Allopurinol] 100 mg PO BID 04/15/15 11/18/21 Atorvastatin Calcium 40 mg PO DAILY 05/26/21 11/18/21 Aspirin Chewable [[place] 81 mg PO DAILY tablet 05/30/21 11/18/21 Aspirin] levoFLOXacin [Levaquin] 750 mg PO Q48H #5 tablet 11/23/21 lisinopriL [Zestril] 5 mg PO DAILY 30 Days #30 tablet 11/23/21 - PHYSICAL EXAM AT DISCHARGE General Appearance: positive: No acute distress, Alert Eyes Bilateral: positive: PERRL, EOMI ENT: positive: No signs of dehydration Neck: positive: No JVD, Trachea midline Respiratory: positive: Chest non-tender, No respiratory distress. negative: Wheezes, Rales, Rhonchi Cardiovascular: positive: Regular rate & rhythm, No murmur Abdomen: positive: Non-tender, No organomegaly, Nml bowel sounds, No distention. negative: Guarding, Rebound Back: positive: Nml inspection Skin: positive: No rash, Warm, Dry Extremities: positive: Non-tender, Full ROM, Nml appearance, Pedal edema (+1 non pitting) Neurologic/Psychiatric: positive: Oriented x3, Mood/affect nml - LABS Result Diagrams: 11/23/21 07:48 11/23/21 07:48 - TIME SPENT Time Spent in Discharge (Minutes): 20
[2021-11-23] MEDS: METOPROLOL SUCCINATE 50 MG TABLET PO SCH (10:21)
[2021-11-23] MEDS: lisinopriL 5 MG TABLET PO SCH (10:22)
[2021-11-23 15:42] VITALS: BP 134/64
== END 2021-11-23 16:03 | disposition home or self-care (01) | DRG 193 ==
LOC: EDUNIT# → EDBD → ED 00:17 → MS2 06:35
PROVIDERS: ADMIT Specialist; ATTEND Internal Medicine
DX: J18.9 Pneumonia, unspecified organism (principal); J96.01 Acute respiratory failure with hypoxia; I50.33 Acute on chronic diastolic (congestive) heart failure; N39.0 Urinary tract infection, site not specified; I10 Essential (primary) hypertension; R78.81 Bacteremia; I45.10 Unspecified right bundle-branch block; I13.0 Hypertensive heart and chronic kidney disease with heart failure and stage 1 through stage 4 chronic kidney disease, or unspecified chronic kidney disease; E78.00 Pure hypercholesterolemia, unspecified; E83.42 Hypomagnesemia; E86.0 Dehydration; Z20.822 Contact with and (suspected) exposure to COVID-19; E87.6 Hypokalemia; M10.9 Gout, unspecified; M19.90 Unspecified osteoarthritis, unspecified site; M25.561 Pain in right knee; D53.9 Nutritional anemia, unspecified; N40.1 Benign prostatic hyperplasia with lower urinary tract symptoms; I25.10 Atherosclerotic heart disease of native coronary artery without angina pectoris; I25.2 Old myocardial infarction; K21.9 Gastro-esophageal reflux disease without esophagitis; B96.20 Unspecified Escherichia coli [E. coli] as the cause of diseases classified elsewhere; J32.9 Chronic sinusitis, unspecified; J43.9 Emphysema, unspecified; H54.7 Unspecified visual loss; H91.90 Unspecified hearing loss, unspecified ear; N18.9 Chronic kidney disease, unspecified; E03.9 Hypothyroidism, unspecified; E66.9 Obesity, unspecified; K76.0 Fatty (change of) liver, not elsewhere classified; R30.0 Dysuria; R74.01 Elevation of levels of liver transaminase levels; Z68.39 Body mass index [BMI] 39.0-39.9, adult; Z79.82 Long term (current) use of aspirin; Z79.899 Other long term (current) drug therapy; Z87.891 Personal history of nicotine dependence; Z95.5 Presence of coronary angioplasty implant and graft; Z91.81 History of falling
CPT/HCPCS: 36415; 70450; 71045; 76700; 78452; 80048; 80053; 81001; 82390; 82397; 82550; 82607; 82728; 83540; 83605; 83615; 83690; 83735; 83880; 84153; 84154; 84443; 84466; 84484; 85025; 85045; 86225; 86235; 86705; 86709; 86803; 87040; 87086; 87150; 87181; 87522; 87635; 93005; 93017; 96361; 96365; 96366; 96368; 96375; 97110; 97116; 97162; 97165; 97530; 97535; 99283; 99285; A9270; A9500; J2785; 81003

== ENCOUNTER 2021-11-23 21:03 | Outpatient (CLI) | payer MEDICARE, OTHER | END 2021-11-23 21:04 | disposition EMS.NT | LOC: EMS 21:03 | DX: R53.1 Weakness (principal) ==

== ENCOUNTER 2023-03-16 11:30 | Outpatient (CLI) | payer MEDICARE, OTHER | END 2023-03-16 11:45 | disposition home or self-care (01) | LOC: LAB.N 11:30 | PROVIDERS: ATTEND Registered Nurse | DX: R81 Glycosuria (principal); R10.9 Unspecified abdominal pain | CPT/HCPCS: 87077; 87086; 87181 ==